=== PATIENT | male | born 1945 | race Caucasian/White ===

== ENCOUNTER 2018-10-16 13:06 | Inpatient (IN) ==
[2018-10-16 14:30] LABS: Basophils # (auto) 0.04 K/uL (0-0.2); Basophils % (auto) 0.4 %; Eosinophils # (auto) 0.32 K/uL (0-0.5); Eosinophils % (auto) 2.9 %; Hematocrit (blood only) 41.1 % (42-52); Hemoglobin 13.5 g/dL (14.0-18.0); Immature Granulocytes # (auto) 0.05 K/uL (0.00-0.02); Immature Granulocytes % (auto) 0.4 %; Lymphocytes # (auto) 1.51 K/uL (1.2-3.4); Lymphocytes % (auto) 13.5 %; Mean Corpuscular Hgb Conc 32.8 g/dL (32-36); Mean Corpuscular Volume 89.3 fL (80-100); Mean Platelet Volume 10.4 fL (7.4-10.4); Monocytes # (auto) 0.86 K/uL (0.11-0.59); Monocytes % (auto) 7.7 %; Neutrophils # (auto) 8.37 K/uL (1.4-6.5); Neutrophils % (auto) 75.1 %; Platelet Count 347 K/uL (130-400); RDW Coefficient of Variation 13.8 % (11.5-14.5); RDW Standard Deviation 44.9 fL (36.4-46.3); White Blood Count 11.15 K/uL (4.8-10.8)
[2018-10-16 14:39] LABS: INR 2.6 (0.9-1.1); Prothrombin Time 24.5 Seconds (9.0-12.0)
--- NOTE | 2018-10-16 14:40 | Emergency Department Note ---
History of Present Illness General Chief complaint: Ankle Pain Stated complaint: RIGHT ANKLE AND FOOT PAIN Time Seen by Provider: 10/16/18 13:50 History of Present Illness Maximum Pain Intensity: 9 This patient is a 72-year-old male who presents to the emergency department via private vehicle for evaluation of increased redness, swelling and redness to the right foot. The patient denies any injury, however he was diagnosed with a calcaneal fracture approximately 3 weeks ago. He saw an orthopedic doctor earlier this week. He was given a postop shoe and told not to bear weight on t he leg. The patient has a history of neuropathy and difficulty with balance. He is having a tough time getting around at home. He denies any fever or chills. No new injury. No chest pain or shortness of breath. He has not been taking anything [id number] for pain. The pain is worse with weightbearing. Home Medications Home Medications Medication Instructions Recorded Confirmed Type Lactobacillus acidophilus 100 mg PO DAILY 10/16/18 10/16/18 History [Acidophilus] amiodarone 100 mg PO HS 10/16/18 10/16/18 History arginine HCl (L-arginine) 1,000 mg PO DAILY 10/16/18 10/16/18 History cholecalciferol (vitamin D3) 1,000 unit PO DAILY 10/16/18 10/16/18 History [Vitamin D3] coenzyme Q10 100 mg PO DAILY 10/16/18 10/16/18 History cyanocobalamin (vitamin B-12) 1,000 mcg PO DAILY 10/16/18 10/16/18 History [Vitamin B-12] duloxetine 30 mg PO HS 10/16/18 10/16/18 History econazole 0 applic TOPICAL UD 10/16/18 10/16/18 History fexofenadine 180 mg PO DAILY PRN 10/16/18 10/16/18 History finasteride 5 mg PO DAILY 10/16/18 10/16/18 History fluticasone propionate [Flonase 2 spray INTRANASAL DAILY 10/16/18 10/16/18 History Allergy Relief] lorazepam 0.5 mg PO BID PRN 10/16/18 10/16/18 History losartan 25 mg PO HS 10/16/18 10/16/18 History metformin 850 mg PO BID 10/16/18 10/16/18 History metoprolol succinate 100 mg PO BID 10/16/18 10/16/18 History multivitamin 1 tab PO DAILY 10/16/18 10/16/18 History nystatin 1 applic TOPICAL BID 10/16/18 10/16/18 History nystatin 1 applic TOPICAL TID 10/16/18 10/16/18 History omega 0-yya-guz-fish oil [Fish Oil] 1 cap PO BID 10/16/18 10/16/18 History phenylalanine [L-Phenylalanine] 500 mg PO DAILY 10/16/18 10/16/18 History psyllium husk [Metamucil] 1 tbsp PO DAILY 10/16/18 10/16/18 History simvastatin 20 mg PO PM 10/16/18 10/16/18 History sodium fluoride-pot nitrate 1 applic DENTAL DAILY 10/16/18 10/16/18 History [PreviDent 5000 Sensitive] tamsulosin 0.4 mg PO DAILY 10/16/18 10/16/18 History tramadol 50 mg PO Q6H PRN 10/16/18 10/16/18 History triamterene-hydrochlorothiazid 1 cap PO DAILY 10/16/18 10/16/18 History warfarin 2.5 mg PO 5XWK 10/16/18 10/16/18 History warfarin 5 mg PO 2XWK 10/16/18 10/16/18 History zinc oxide [Desitin] 1 applic TOPICAL BID PRN 10/16/18 10/16/18 History Allergies Allergy/AdvReac Type Severity Reaction Status Date / Time Penicillins Allergy Severe edema of Unverified 10/16/18 17:11 airway cephalexin Allergy Mild Unknown Unverified 10/16/18 14:50 codeine Allergy Mild Unknown Unverified 10/16/18 14:50 furosemide [From Lasix] Allergy Mild Unknown Unverified 10/16/18 14:50 gabapentin Allergy Mild Unknown Unverified 10/16/18 14:50 Past Med/Surg History Medical History HTN (hypertension) HLD (hyperlipidemia) Pre-diabetes Morbid obesity Diabetic neuropathy ARVIND on CPAP PAF (paroxysmal atrial fibrillation) GERD (gastroesophageal reflux disease) Atrial fib/flutter, transient Surgical History History of tonsillectomy and adenoidectomy History of colonoscopy Family History Father CHF (congestive heart failure) Alzheimer disease Mother Stroke CHF (congestive heart failure) Social History Preferred Language: Georgian Communication Ability: Effective Activity Coordinator Required: No Beliefs That Will Affect Care: None marital status: Current Living Situation: Spouse Other Information That Helps Us Care for You: No Feels Safe at Home: Yes Safety Concerns: Feels Safe At This Time Smoking Status: Never smoker Do You Dip or Chew Tobacco: No Second Hand Exposure: No Tobacco Cessation Education Requested by Patient: No Hx Alcohol Use: No Hx Substance Use: No Review of Systems A total of 10 systems reviewed and were otherwise negative Physical Exam Vital Signs Vital Signs - 24 hr 10/16/18 13:16 10/16/18 16:27 Temperature 36.6 C Temperature Source Oral Sepsis Recent Fever Within 48 Hours No Sepsis New/Unexplained Change in Mental Status No Sepsis Action Taken by Nursing No Action Required Pulse Rate 68 Pulse Rate [Left] 51 L Respiratory Rate 20 20 Respiratory Effort / Characteristics Non-Labored Spontaneous Non-Labored Spontaneous Respiratory Depth Normal Blood Pressure 136/63 Blood Pressure [Right Arm] 147/56 H Blood Pressure Mean 87 Blood Pressure Mean [Right Arm] 86 Blood Pressure Position Sitting Blood Pressure Position [Right Arm] Lying Pulse Oximetry 94 97 Oxygen Delivery Method Room Air Room Air Constitutional WD/WN, vitals as above Morbidly obese Eyes EOM intact bilaterally ENMT external ear and nose normal, oropharynx normal Neck trachea midline Respiratory normal respiratory effort, lungs clear to auscultation Cardiovascular RRR, no murmur, no edema Gastrointestinal (Abdomen) Percussion/Palpation: abdomen soft Musculoskeletal Diffuse edema and erythema noted to the right ankle, particularly over the medial malleolus. Capillary refill is less than 2 seconds. DP pulses not palpable. No significant tenderness to palpation appreciated. Edema is extending proximally up the odonnell. Skin no rashes, warm and dry Intact Neurologic Alert and oriented x3. No focal motor deficits. Psychiatric Acting appropriately Course Patient was seen and examined Vital signs including blood pressure were reviewed medications list was verified with patient Labs were obtained, and a saline lock was established The patient declined pain medication Imaging was performed and reviewed The patient was reassessed and resting comfortably. We discussed his results and disposition. He was in agreement with the plan. The patient was ordered 1 dose of daptomycin and aztreonam The patient was in agreement with my plan The case was discussed with case management and subsequently the [facility]. They kindly agreed to evaluate the patient for likely inpatient management. Consultations Consultation #1: [facility] service Administered Medications Amiodarone HCl (Cordarone) 100 mg PO HS KARIN Stop: 11/15/18 20:59 Last Admin: 10/16/18 21:43 Dose: 100 mg Documented by: [id number] Duloxetine HCl (Cymbalta) 30 mg PO HS KARIN Stop: 11/15/18 20:59 Last Admin: 10/16/18 21:45 Dose: 30 mg Documented by: [id number] Fish Oil ([place]-3 (Purified Fish Oil)) 1 gm PO BID KARIN Stop: 11/15/18 20:59 Last Admin: 10/16/18 21:49 Dose: Not Given Documented by: [id number] Insulin Aspart (Novolog Flexpen) 0 units SC ACHS KARIN Stop: 11/15/18 20:59 Last Admin: 10/16/18 21:47 Dose: Not Given Documented by: [id number] Cosigned by: [id number] Losartan Potassium (Cozaar) 25 mg PO HS KARIN Stop: 11/15/18 20:59 Last Admin: 10/16/18 21:44 Dose: 25 mg Documented by: [id number] Metoprolol Succinate (Toprol Xl) 100 mg PO BID KARIN Stop: 11/15/18 20:59 Last Admin: 10/16/18 21:51 Dose: Not Given Documented by: [id number] Discontinued Medications Daptomycin 700 mg/ Syringe 14 mls @ 7 mls/min IV NOW ONE; Protocol Stop: 10/16/18 16:31 Last Admin: 10/16/18 17:15 Dose: 7 mls/min Documented by: [id number] Aztreonam 2,000 mg/ Dextrose 110 mls @ 100 mls/hr IV ONE ONE; Protocol Stop: 10/16/18 18:13 Last Infusion: 10/16/18 19:03 Dose: 0 mls/hr Documented by: [id number] Admin: 10/16/18 17:57 Dose: 100 mls/hr Documented by: [id number] Medical Decision Making Medical Records Attestation: I reviewed the patient's medical records. Home Medications Current Medication List: was personally reviewed by me Laboratory Data Attestation: I reviewed the patient's lab results. Result diagrams: 10/16/18 14:23 10/16/18 14:23 Lab Results 10/16/18 10/16/18 10/16/18 Range/Units 14:23 14:23 14:23 WBC 11.15 H (4.8-10.8) K/uL RBC 4.60 L (4.7-6.1) M/uL Hgb 13.5 L (14.0-18.0) g/dL Hct 41.1 L (42-52) % MCV 89.3 (80-100) fL MCH 29.3 (25-34) pg MCHC 32.8 (32-36) g/dL RDW Std Deviation 44.9 (36.4-46.3) fL RDW Coeff of Chapis 13.8 (11.5-14.5) % Plt Count 347 (130-400) K/uL MPV 10.4 (7.4-10.4) fL Immature Gran % (Auto) 0.4 % Neut % (Auto) 75.1 % Lymph % (Auto) 13.5 % [place] % (Auto) 7.7 % Eos % (Auto) 2.9 % Baso % (Auto) 0.4 % Immature Gran # (Auto) 0.05 H (0.00-0.02) K/uL Neut # (Auto) 8.37 H (1.4-6.5) K/uL Lymph # (Auto) 1.51 (1.2-3.4) K/uL [place] # (Auto) 0.86 H (0.11-0.59) K/uL Eos # (Auto) 0.32 (0-0.5) K/uL Baso # (Auto) 0.04 (0-0.2) K/uL ESR (0-14) mm/hr PT 24.5 H (9.0-12.0) Seconds INR 2.6 H (0.9-1.1) Sodium 135 L (136-145) mmol/L Potassium (3.5-5.1) mmol/L Chloride 100 (98-107) mmol/L Carbon Dioxide 29 (21-32) mmol/L Anion Gap 6.0 (3-11) BUN 23 H (7-18) mg/dl Creatinine 1.20 (0.6-1.4) mg/dl Est Cr Clr Drug Dosing 93.3 ml/min Est GFR ( Amer) 69.6 Est GFR (Non-Af Amer) 60.1 BUN/Creatinine Ratio 19.0 (10-20) Glucose 93 (70-99) mg/dl Calcium 9.8 (8.5-10.1) mg/dl Total Bilirubin 0.4 (0.2-1) mg/dl AST (15-37) U/L ALT 24 (12-78) U/L Alkaline Phosphatase 107 (45-117) U/L C-Reactive Protein (0-0.29) mg/dl Total Protein 7.1 (6.4-8.2) gm/dl Albumin 2.6 L (3.4-5.0) gm/dl Globulin 4.5 H (2.5-4.0) gm/dl Albumin/Globulin Ratio 0.6 L (0.9-2) 10/16/18 10/16/18 Range/Units 14:23 14:23 WBC (4.8-10.8) K/uL RBC (4.7-6.1) M/uL Hgb (14.0-18.0) g/dL Hct (42-52) % MCV (80-100) fL MCH (25-34) pg MCHC (32-36) g/dL RDW Std Deviation (36.4-46.3) fL RDW Coeff of Chapis (11.5-14.5) % Plt Count (130-400) K/uL MPV (7.4-10.4) fL Immature Gran % (Auto) % Neut % (Auto) % Lymph % (Auto) % [place] % (Auto) % Eos % (Auto) % Baso % (Auto) % Immature Gran # (Auto) (0.00-0.02) K/uL Neut # (Auto) (1.4-6.5) K/uL Lymph # (Auto) (1.2-3.4) K/uL [place] # (Auto) (0.11-0.59) K/uL Eos # (Auto) (0-0.5) K/uL Baso # (Auto) (0-0.2) K/uL ESR > 90 H (0-14) mm/hr PT (9.0-12.0) Seconds INR (0.9-1.1) Sodium (136-145) mmol/L Potassium (3.5-5.1) mmol/L Chloride (98-107) mmol/L Carbon Dioxide (21-32) mmol/L Anion Gap (3-11) BUN (7-18) mg/dl Creatinine (0.6-1.4) mg/dl Est Cr Clr Drug Dosing ml/min Est GFR ( Amer) Est GFR (Non-Af Amer) BUN/Creatinine Ratio (10-20) Glucose (70-99) mg/dl Calcium (8.5-10.1) mg/dl Total Bilirubin (0.2-1) mg/dl AST (15-37) U/L ALT (12-78) U/L Alkaline Phosphatase (45-117) U/L C-Reactive Protein 1.86 H (0-0.29) mg/dl Total Protein (6.4-8.2) gm/dl Albumin (3.4-5.0) gm/dl Globulin (2.5-4.0) gm/dl Albumin/Globulin Ratio (0.9-2) Imaging Data Attestation: I personally reviewed and interpreted this imaging study as follows: Radiologist's Impression: X-rays right foot Difficult study to interpret due to advanced degenerative change, lack of prior examinations, bony heterogeneity, and inability to properly position the patient. 2. The calcaneus appears foreshortened, with bony fragmentation identified anteriorly. There is collapse of the talocalcaneal articulation. Small avulsed fragments are seen along the medial aspect of the hindfoot. 3. Question erosive change with bony sclerosis and small ossific fragments along the dorsal aspect of the talus. Osteomyelitis would be impossible to exclude and clinical correlation will be required. Correlation with any prior outside imaging studies would be useful to assess for chronicity. 4. Advanced arthritic changes seen throughout the midfoot and hindfoot, likely representing a Charcot foot. 5. Diffuse soft tissue edema is present throughout the foot and ankle. Correlate clinically for evidence of cellulitis. Electronically signed by: Fracisco Shanks M.D. 10/16/2018 2:52 PM Ultrasound right lower extremity : There is no sonographic evidence of deep venous thrombosis identified in the r ight lower extremity. Electronically signed by: Fracisco Shanks M.D. 10/16/2018 4:28 PM Dictated: 10/16/18 1627 Transcribed: 10/16/[id number] Prescription Drug Monitoring [place] Drug Monitoring Program reviewed and no issues identified Blood Pressure Blood Pressure Findings: Elevated blood pressure Blood Pressure Disposition: further management by hospitalist KEV Narrative Differential diagnosis: Fracture, contusion, sprain, cellulitis, DVT, osteomyeli tis, sepsis, among others This patient is a 72-year-old male presents to the emergency department with increased redness and swelling to the right lower extremity. On exam, he did have a significant amount of edema, warmth and erythema. The patient is a known calcaneal fracture. His work-up here today reveals leukocytosis. X-rays could not rule out osteomyelitis. There was no DVT. I did not feel comfortable sending the patient home. The patient was ordered broad-spectrum antibiotics. He will be evaluated by the [facility] hospitalist for likely inpatient management. Impression & Plan Cellulitis Discharge Plan Visit Data *Final* Discharge Date/Time: 10/16/18 19:14 Chief Complaint: Ankle Pain Stated Complaint: RIGHT ANKLE AND FOOT PAIN ED Provider: Samuel Silva ED Midlevel Provider: Reny Jesus Discharge Problem: Cellulitis Patient Disposition: Admitted As Inpatient Condition: Serious Discharge Instructions Interventions: ED Discharge Assessment Last Done: 10/16/18 19:14
[2018-10-16 14:52] LABS: Albumin Level 2.6 gm/dl (3.4-5.0); Calcium 9.8 mg/dl (8.5-10.1); Creatinine Clr Calc Pharmacy 93.3 ml/min; Est GFR (African American) 69.6; Est GFR (Non-African American) 60.1
--- NOTE | 2018-10-16 14:53 | XRay Report ---
RIGHT FOOT 3 VIEWS CLINICAL HISTORY: Calcaneal fracture. Erythema of the right foot. FINDINGS: 3 views of the right foot are obtained. No prior studies are available for comparison at e time of dictation. The examination is degraded by inability to properly position the patient. The s keletal structures are heterogeneously osteopenic. Advanced arthritic change is seen throughout the m idfoot and hindfoot. The calcaneus appears foreshortened, with fragmentation anteriorly and collapse of the talocalcaneal articulation. There is near-complete bony fusion seen throughout the midfoot. Sm all fracture fragments are suggested along the medial aspect of the hindfoot on the AP view, possibly arising from the calcaneus question erosive change and sclerosis along the dorsal aspect of the talu s with small overlying bone fragments. No additional foci of erosive change are suggested. There are dorsal and plantar calcaneal enthesophytes. Soft tissue edema seen throughout the foot and around the ankle. There is likely an ankle joint effusion. Atherosclerotic calcification is seen in the regiona l arteries. Moderate to advanced arthritic changes noted at the first metatarsophalangeal joint. IMPRESSION: 1. Difficult study to interpret due to advanced degenerative change, lack of prior examinations, bony heterogeneity, and inability to properly position the patient. 2. The calcaneus appears foreshortened, with bony fragmentation identified anteriorly. There is colla pse of the talocalcaneal articulation. Small avulsed fragments are seen along the medial aspect of th e hindfoot. 3. Question erosive change with bony sclerosis and small ossific fragments along the dorsal aspect of the talus. Osteomyelitis would be impossible to exclude and clinical correlation will be required. C orrelation with any prior outside imaging studies would be useful to assess for chronicity. 4. Advanced arthritic changes seen throughout the midfoot and hindfoot, likely representing a Charcot foot. 5. Diffuse soft tissue edema is present throughout the foot and ankle. Correlate clinically for evide nce of cellulitis. Electronically signed by: Fracisco Shanks M.D. 10/16/2018 2:52 PM
[2018-10-16 14:55] LABS: Albumin Globulin Ratio 0.6 (0.9-2); Bilirubin,Total 0.4 mg/dl (0.2-1); Globulin 4.5 gm/dl (2.5-4.0); Total Protein 7.1 gm/dl (6.4-8.2)
[2018-10-16] MEDS ORDERED: DAPTOmycin 700 MG in SYRINGE 0 ML IV ONE (16:30)
--- NOTE | 2018-10-16 16:30 | Ultrasound Report ---
ULTRASOUND RIGHT LOWER EXTREMITY VENOUS CLINICAL HISTORY: Right lower extremity edema. COMPARISON STUDY: No priors. TECHNIQUE: Real-time, grayscale, and color Doppler sonography of the deep veins of the right lower ex tremity was performed from the inguinal crease to the calf. Compression and augmentation were utilize d. Examination is degraded by large body habitus. FINDINGS: There is no sonographic evidence of deep venous thrombosis identified in the right lower ex tremity. The common femoral vein was not visualized. The superficial femoral and popliteal veins are patent and normally compressible. Portions of the popliteal vein were suboptimally assessed. The grea ter saphenous vein and the profunda femoris veins were not visualized. The visualized calf veins are patent. IMPRESSION: There is no sonographic evidence of deep venous thrombosis identified in the right lower extremity. Electronically signed by: Fracisco Shanks M.D. 10/16/2018 4:28 PM
[2018-10-16] MEDS ORDERED: AZTREONAM 2,000 MG in DEXTROSE 5% 100 ML IV ONE (17:08)
--- NOTE | 2018-10-16 18:21 | History & Physical Report ---
Date of Service October 16, 2018 Assessment & Plan (1) Right calcaneal fracture: (2) Swelling of right foot: This is a 72-year-old male who has a significant past medical history of HTN, HLD, PAF anticoagulated on warfarin, pre-diabetes, neuropathy, ARVIND on CPAP, GERD who presents to [facility] ED secondary to worsening swelling of right lower extremity since July. In ED patient was noted to have elevated WBC 11.15. His hemoglobin hematocrit was 13.5 and 41.1, platelet count 347. ESR and CRP are elevated at greater than 90 and 1.86. INR therapeutic at 1.6. CMP relatively unremarkable. Venous Doppler of right lower extreme he was negative for DVT. Right foot x-ray revealed advanced arthritic changes seen throughout the midfoot and hindfoot likely significant for Charcot foot. Unable to rule out osteomyelitis. Calcaneus appears foreshortened and collapse of talocalcaneal articulation. Significant swelling and deformity to R foot and ankle Likely component of charcot arthopathy ? Pathologic calcaneal and/or talus fracture ? Celluitis vs overt osteomyelitis admit to med/surg telemetry consult orthopedics Continue broad-spectrum IV antibiotics until OM or infection is ruled out Please refer to Dr. Vitale's addendum for further details regarding assessment and plan. (3) PAF (paroxysmal atrial fibrillation): (4) HTN (hypertension): (5) HLD (hyperlipidemia): (6) Pre-diabetes: (7) Morbid obesity: (8) ARVIND on CPAP: (9) DVT prophylaxis: History of Present Illness Chief Complaint: R foot swelling since July Primary Care Provider: Kyler Choudhury MD This is a 72-year-old male who has a significant past medical history of HTN, HLD, PAF anticoagulated on warfarin, pre-diabetes, neuropathy, ARVIND on CPAP, GERD who presents to [facility] ED secondary to worsening swelling of right lower extremity since July. Patient notes since July he has been having increased swelling of right foot. He has seen his PCP as well as podiatry who had sent him for imaging. Finally on 10/01 he presented to [facility] ER due to continued swelling and pain. X-ray revealed acute calcaneal fracture, acute avulsion fracture of medial malleolus. CT scan of lower extremity revealed acute comminuted probably pathologic fracture of calcaneus with possible pathologic fracture of talus not excluded. Underlying osteolytic lesions not excluded. He was given a splint and recommended to follow-up with orthopedics. Unfortunately early as he could follow-up with orthopedics was on 10/12 in which he went to [facility] orthopedics Dr. Tyson. At that time he was placed non weight bearing shoe and to return in 6 weeks. He also elicits that he has been working with roof truss machine tender and orthotic specialist to create specialized shoe for his right foot. Given pain and swelling in lower extremity makes mobility very difficult. has been having difficult time managing patient at home due to limited mobility, pain and not weightbearing status. They opted to present to ED today because was at "wits end," and needed somebody to evaluate his foot. She also notes the swelling just continues to get progressively worse. The patient otherwise denies any fever, chills, sweats, lightheadedness, dizziness, chest pain, shortness of breath, palpitations, cough, hemoptysis, nausea, vomiting, diarrhea, abdominal pain, changes bowel or urinary habits. His appetite is been otherwise stable. Taking his medications as prescribed. He is very particular on timing of his medications. He is compliant with his CPAP. Allergies Allergy/AdvReac Type Severity Reaction Status Date / Time Penicillins Allergy Severe edema of Unverified 10/16/18 17:11 airway cephalexin Allergy Mild Unknown Unverified 10/16/18 14:50 codeine Allergy Mild Unknown Unverified 10/16/18 14:50 furosemide [From Lasix] Allergy Mild Unknown Unverified 10/16/18 14:50 gabapentin Allergy Mild Unknown Unverified 10/16/18 14:50 Home Medications Home Medications Medication Instructions Recorded Confirmed Type Lactobacillus acidophilus 100 mg PO DAILY 10/16/18 10/16/18 History [Acidophilus] amiodarone 100 mg PO HS 10/16/18 10/16/18 History arginine HCl (L-arginine) 1,000 mg PO DAILY 10/16/18 10/16/18 History cholecalciferol (vitamin D3) 1,000 unit PO DAILY 10/16/18 10/16/18 History [Vitamin D3] coenzyme Q10 100 mg PO DAILY 10/16/18 10/16/18 History cyanocobalamin (vitamin B-12) 1,000 mcg PO DAILY 10/16/18 10/16/18 History [Vitamin B-12] duloxetine 30 mg PO HS 10/16/18 10/16/18 History econazole 0 applic TOPICAL UD 10/16/18 10/16/18 History fexofenadine 180 mg PO DAILY PRN 10/16/18 10/16/18 History finasteride 5 mg PO DAILY 10/16/18 10/16/18 History fluticasone propionate [Flonase 2 spray INTRANASAL DAILY 10/16/18 10/16/18 History Allergy Relief] lorazepam 0.5 mg PO BID PRN 10/16/18 10/16/18 History losartan 25 mg PO HS 10/16/18 10/16/18 History metformin 850 mg PO BID 10/16/18 10/16/18 History metoprolol succinate 100 mg PO BID 10/16/18 10/16/18 History multivitamin 1 tab PO DAILY 10/16/18 10/16/18 History nystatin 1 applic TOPICAL BID 10/16/18 10/16/18 History nystatin 1 applic TOPICAL TID 10/16/18 10/16/18 History omega 2-jsc-xhg-fish oil [Fish Oil] 1 cap PO BID 10/16/18 10/16/18 History phenylalanine [L-Phenylalanine] 500 mg PO DAILY 10/16/18 10/16/18 History psyllium husk [Metamucil] 1 tbsp PO DAILY 10/16/18 10/16/18 History simvastatin 20 mg PO PM 10/16/18 10/16/18 History sodium fluoride-pot nitrate 1 applic DENTAL DAILY 10/16/18 10/16/18 History [PreviDent 5000 Sensitive] tamsulosin 0.4 mg PO DAILY 10/16/18 10/16/18 History tramadol 50 mg PO Q6H PRN 10/16/18 10/16/18 History triamterene-hydrochlorothiazid 1 cap PO DAILY 10/16/18 10/16/18 History warfarin 2.5 mg PO 5XWK 10/16/18 10/16/18 History warfarin 5 mg PO 2XWK 10/16/18 10/16/18 History zinc oxide [Desitin] 1 applic TOPICAL BID PRN 10/16/18 10/16/18 History Past Med/Surg History Medical History HTN (hypertension) HLD (hyperlipidemia) Pre-diabetes Morbid obesity Diabetic neuropathy ARVIND on CPAP PAF (paroxysmal atrial fibrillation) GERD (gastroesophageal reflux disease) Atrial fib/flutter, transient Surgical History History of tonsillectomy and adenoidectomy History of colonoscopy Family History Father CHF (congestive heart failure) Alzheimer disease Mother Stroke CHF (congestive heart failure) Social History Preferred Language: Zimbabwean Communication Ability: Effective marital status: Current Living Situation: Spouse Feels Safe at Home: Yes Smoking Status: Never smoker Hx Alcohol Use: No Hx Substance Use: No Review of Systems Review of Systems: As noted per HPI, 10 systems reviewed and negative unless noted above. Physical Exam Physical Exam: Gen: Morbidly obese M, sitting in recliner, NAD, flat affected, conversing easily Head: Normocephalic, Atraumatic Eyes: Sclera normal, no conjunctival injection, PERRLA, EOMI ENT: Gross hearing intact, normal pharynx, mucous membranes moist Neck: supple, no adenopathy, No JVD, no bruit, Resp: Clear to auscultation b/l, no wheeze, rales, rhonchi. Normal insp/exp effort, no accessory muscle use CV: Regular rate, regular rhythm, no murmur, rub, gallop, or ectopy Abd: distended abd due to obesity, +BS x 4, soft, nontender, nondistended Musculoskeletal: R foot and ankle significant edema/deformity, foot everted, able to dorsiflex/plantar flex but unable to flex/extend toes, unable to invert or katie RLE ankle, otherwise strength intact upper ext and LLE Extremities: Significant RLE ankle/pedal edema, No LLE edema Skin: warm, moist, no rash, negative turgor, cap refill < 2sec Neuro: Alert and oriented x 3, speech normal, good mood/affect, cran nerve 2-12 intact grossly : deferred Results & Data Vital Signs (Past 12 Hours) Vital Signs Temp Pulse Pulse Resp BP BP Pulse Ox 10/16/18 16:27 51 L 20 147/56 H 97 10/16/18 13:16 36.6 C 68 20 136/63 94 Code Status & VTE Plan Code Status Full Code VTE Prophylaxis Plan VTE Prophylaxis will be ordered: Yes Supervising Physician Co-Signing Physician Notes I have seen the patient with physician housekeeping assistant and agree with History and Physical as documented by physician housekeeping assistant and would like to comment the following problems Main physical exam findings of obese male with right lower extremity swelling with deformity of right foot with swelling that is warm to the touch on the medi al and bottom part of the foot and right foot very edematous Right lower extremity swelling Right calcaneal fracture: swelling may be secondary to Charcot foot versus cellulitis -empirically started by ED on aztreonam and daptomycin, would continue for cellulitis and rule out osteomyelitis -will try to obtain MRI with contrast of right lower foot to rule out osteomyelitis if possible -otherwise if MRI cannot be possible because of patients body size or discomfort then may need CT scan of right leg with contrast -orthopedic consult -patient does not want Lasix for leg swelling because it caused abdomen discomfort or weakness in the past -will continue home dose triamterene/HCTZ as diuretic for now Hypertension - will continue home dose triamterene/HCTZ as diuretic for now Morbid obesity -patients morbid obesity does not help with patients right foot swelling -will need to elevate foot at rest as possible Atrial Fibrillation Anticoagulated on coumadin -continue home dose amiodarone and metoprolol -INR is therapeutic for anticoagulation for atrial fibrillation but will hold home dose Coumadin for now in case of orthopedic interventions Obstructive sleep apnea -CPAP/BIPAAP qhs Pre-diabetes -hold home dose metformin for now -give insulin as needed DVT ppx: therapeutic INR
[2018-10-16] MEDS ORDERED: POLYETHYLENE (MIRALAX) 17 GM PACK PO PRN (19:57)
[2018-10-16] MEDS ORDERED: MAGNESIUM HYDROXIDE SUSP 30 ML UDC PO PRN (19:57)
[2018-10-16] MEDS ORDERED: GLUCOSE 40% GEL 15 GM TUBE PO PRN (19:57)
[2018-10-16] MEDS ORDERED: ZINC OXIDE TOP PRN (19:57)
[2018-10-16] MEDS ORDERED: ONDANSETRON INJ 2 MG/ML 2 ML VIAL IV PRN (19:57)
[2018-10-16] MEDS ORDERED: CARBOHYDRATES FOR HYPOGLYCEMIA PO PRN (19:57)
[2018-10-16] MEDS ORDERED: LORazepam 0.5 MG TAB PO PRN (19:57)
[2018-10-16] MEDS ORDERED: GLUCOSE 10 TABS/TUBE PO PRN (19:57)
[2018-10-16] MEDS ORDERED: ACETAMINOPHEN 325 MG TAB PO PRN (19:57)
[2018-10-16] MEDS ORDERED: TRAMADOL HCL 50 MG TABLET PO PRN (19:57)
[2018-10-16] MEDS ORDERED: GLUCAGON FOR INJ 1 MG VIAL SQ PRN (19:57)
[2018-10-16] MEDS ORDERED: ALUMINUM/MAGNESIUM SUSP 30 ML UDC PO PRN (19:57)
[2018-10-16] MEDS ORDERED: CONSULT PHARMACY STA (19:57)
[2018-10-16] MEDS ORDERED: DEXTROSE 50% 50 ML SYRINGE IV PRN (19:57)
[2018-10-16] MEDS ORDERED: AZTREONAM CONSULT ACTIVE PRN (20:35)
[2018-10-16] MEDS ORDERED: DAPTOMYCIN CONSULT ACTIVE PRN (20:36)
[2018-10-16] MEDS ORDERED: AMIODARONE 200 MG TAB PO SCH (21:00)
[2018-10-16] MEDS ORDERED: DULOXETINE HCL 30 MG CAP PO SCH (21:00)
[2018-10-16] MEDS ORDERED: LOSARTAN POTASSIUM 25 MG TAB PO SCH (21:00)
[2018-10-16] MEDS: AMIODARONE 200 MG TAB PO SCH (21:43)
[2018-10-16] MEDS: LOSARTAN POTASSIUM 25 MG TAB PO SCH (21:44)
[2018-10-16] MEDS: DULOXETINE HCL 30 MG CAP PO SCH (21:45)
[2018-10-16] MEDS: INSULIN ASPART 100 UNITS/ML 3 ML PEN SC SCH (21:47)
[2018-10-16] MEDS: OMEGA-3 (PURIFIED FISH OIL) 1 GM CAP PO SCH (21:49)
[2018-10-16] MEDS: METOPROLOL SUCC 50MG EXT REL TAB PO SCH (21:51)
[2018-10-16] MEDS: TAMSULOSIN HCL 0.4 MG CAP PO SCH (22:41)
[2018-10-16] MEDS ORDERED: PSYLLIUM 58.6% POWDER PACKET PO STA (22:58)
[2018-10-17] MEDS: AZTREONAM 2,000 MG in DEXTROSE 5% 100 ML IV SCH ×3 (01:49→18:43)
[2018-10-17] MEDS ORDERED: HYDROCORTISONE ACETATE 25 MG SUPP PR PRN (04:56)
[2018-10-17 07:52] LABS: Hematocrit (blood only) 39.5 % (42-52); Hemoglobin 13.1 g/dL (14.0-18.0); Mean Corpuscular Hgb Conc 33.2 g/dL (32-36); Mean Corpuscular Volume 89.2 fL (80-100); Mean Platelet Volume 10.1 fL (7.4-10.4); Platelet Count 342 K/uL (130-400); RDW Coefficient of Variation 13.8 % (11.5-14.5); RDW Standard Deviation 45.4 fL (36.4-46.3); Red Blood Count 4.43 M/uL (4.7-6.1); White Blood Count 9.58 K/uL (4.8-10.8)
[2018-10-17 08:03] LABS: INR 2.4 (0.9-1.1); Prothrombin Time 23.3 Seconds (9.0-12.0)
[2018-10-17 08:32] LABS: BUN Creatinine Ratio 20.2 (10-20); Calcium 9.4 mg/dl (8.5-10.1); Est GFR (African American) 75.7; Est GFR (Non-African American) 65.3; Potassium 3.9 mmol/L (3.5-5.1)
[2018-10-17] MEDS: OMEGA-3 (PURIFIED FISH OIL) 1 GM CAP PO SCH ×2 (08:33→21:23)
[2018-10-17] MEDS: TRIAMTERENE/HCTZ 37.5/25MG CAP PO SCH (08:33)
[2018-10-17] MEDS: METOPROLOL SUCC 50MG EXT REL TAB PO SCH (08:34)
[2018-10-17] MEDS ORDERED: NON-FORMULARY MEDICATION (Coenzyme Q10 100 MG) PO SCH (09:00)
[2018-10-17] MEDS ORDERED: DULOXETINE HCL 30 MG CAP PO SCH (09:00)
[2018-10-17] MEDS ORDERED: ARGININE HCL 1000 MG PO SCH (09:00)
[2018-10-17] MEDS ORDERED: [UNRECOGNIZED DRUG - OTHER] PO SCH (09:00)
[2018-10-17] MEDS ORDERED: CYANOCOBALAMIN 500 MCG TABLET (VITAMIN B-12) PO SCH (09:00)
[2018-10-17] MEDS ORDERED: TAMSULOSIN HCL 0.4 MG CAP PO SCH (09:00)
[2018-10-17] MEDS ORDERED: CHOLECALCIFEROL 1,000 UNITS TAB PO SCH (09:00)
[2018-10-17] MEDS ORDERED: MULTIVITAMIN TAB PO SCH (09:00)
[2018-10-17] MEDS ORDERED: FINASTERIDE 5 MG TAB PO SCH (09:00)
[2018-10-17] MEDS ORDERED: LACTOBACILLUS ACIDOPHILUS (FLORANEX) TAB PO SCH (09:00)
[2018-10-17 09:06] LABS: Estimated Average Glucose 134 mg/dl; Hemoglobin A1C 6.3 % (4.5-5.6)
[2018-10-17] MEDS: INSULIN ASPART 100 UNITS/ML 3 ML PEN SC SCH ×4 (09:57→22:28)
[2018-10-17] MEDS ORDERED: Nursing to Pharmacy Communication ONE (10:12)
--- NOTE | 2018-10-17 16:21 | Hospitalist Progress Note ---
Date of Service October 17, 2018 Assessment & Plan (1) Right calcaneal fracture: (2) Swelling of right foot: "This is a 72-year-old male who has a significant past medical history of HTN, HLD, PAF anticoagulated on warfarin, pre-diabetes, neuropathy, ARVIND on CPAP, GERD who presents to [facility] ED secondary to worsening swelling of right lower extremity since July. In ED patient was noted to have elevated WBC 11.15. His hemoglobin hematocrit was 13.5 and 41.1, platelet count 347. ESR and CRP are elevated at greater than 90 and 1.86. INR therapeutic at 1.6. CMP relatively unremarkable. Venous Doppler of right lower extreme he was negative for DVT. Right foot x-ray revealed advanced arthritic changes seen throughout the midfoot and hindfoot likely significant for Charcot foot. Unable to rule out osteomyelitis. Calcaneus appears foreshortened and collapse of talocalcaneal articulation." Right lower extremity swelling Right calcaneal fracture: swelling may be secondary to Charcot foot versus cellulitis -empirically started by ED on aztreonam and daptomycin, would continue for cellulitis and rule out osteomyelitis -Patient was not able to fit in MRI machine. Will try to get CT scan with contrast -Right Lower extremity ultrasound: no DVT -patient does not want Lasix for leg swelling because it caused abdomen discomfort or weakness in the past -will continue home dose triamterene/HCTZ as diuretic for now -orthopedic consult recommendations pending while awaiting CT scan imaging (3) PAF (paroxysmal atrial fibrillation): Atrial Fibrillation Anticoagulated on coumadin -continue home dose amiodarone and metoprolol twice a day -INR is therapeutic for anticoagulation for atrial fibrillation on admission but will hold home dose Coumadin for now in case of orthopedic interventions (4) HTN (hypertension): Hypertension - will continue home dose triamterene/HCTZ as diuretic for now (5) HLD (hyperlipidemia): simvastatin (6) Pre-diabetes: HbA1c 6.3 diabetic diet (7) Morbid obesity: Morbid obesity with BMI 53.8 due to excess calories -patients morbid obesity does not help with patients right foot swelling -will need to elevate foot at rest as possible (8) ARVIND on CPAP: -CPAP/BIPAP qhs (9) DVT prophylaxis: DVT ppx: therapeutic INR on admission, monitor off coumadin for now unless there is no orthopedic interventions Subjective Heart rate controlled. in atrial fibrillation. patient denies chest pain. no shortness of breath. on room air. no abdomen complaints. no vomiting. right lower extremity remains swollen . Physical Exam Constitutional: + obese Eyes: PERRL, conjunctivae normal, anicteric sclerae EOM intact bilaterally ENMT: external ear and nose normal, oropharynx normal Neck: trachea midline, no thyromegaly Respiratory: normal respiratory effort, lungs clear to auscultation Cardiovascular: Rate/Rhythm: regular rate and + irregularly irregular Gastrointestinal (Abdomen): normal bowel sounds, soft, nontender, no hepatosplenomegaly Musculoskeletal: Head/Neck/Chest: normocephalic and head atraumatic ight lower extremity swelling with deformity of right foot with swelling that is warm to the touch on the medial and bottom part of the foot and right foot Neurologic: PERRL, EOMI, accommodation nl, no face palsy, no dysarthria Psychiatric: A+Ox3, euthymic affect Results & Data Vital Signs (Past 12 Hours) Vital Signs Temp Pulse Resp BP BP Pulse Ox 10/17/18 15:54 36.6 C 87 18 112/66 95 10/17/18 11:38 36.7 C 63 18 131/67 94 10/17/18 07:48 36.9 C 76 20 138/75 97 10/17/18 04:24 36.9 C 80 20 117/62 94
[2018-10-17] MEDS: CYANOCOBALAMIN 500 MCG TABLET (VITAMIN B-12) PO SCH (16:45)
[2018-10-17] MEDS: FINASTERIDE 5 MG TAB PO SCH (16:46)
[2018-10-17] MEDS: LACTOBACILLUS ACIDOPHILUS (FLORANEX) TAB PO SCH (16:46)
[2018-10-17] MEDS: MULTIVITAMIN TAB PO SCH (16:46)
[2018-10-17] MEDS: CHOLECALCIFEROL 1,000 UNITS TAB PO SCH (16:46)
[2018-10-17] MEDS ORDERED: METOPROLOL SUCC 50MG EXT REL TAB PO ONE (17:00)
[2018-10-17] MEDS ORDERED: DAPTOmycin 700 MG in SYRINGE 0 ML IV SCH (18:00)
--- NOTE | 2018-10-17 19:25 | Orthopedic Consultation ---
Date of Consultation October 17, 2018 Assessment & Plan (1) Right calcaneal fracture: Multiple small fractures and subluxation/dislocation foot consistent with a Charcot type fracture and does not appear to be infected. Dr. Montero reviewed his CAT scan and x-rays. Recommendation at this time is casting to let the acute Charcot foot calm down. Eventual treatment would be arthrodesis likely triple arthrodesis and calcaneal nail. He is going to require fci or rehab. We will need to contact Dr. Montero with regard to type of cast he prefers and weightbearing status. For now recommend elevation nonweightbearing he can have SCDs on both lower extremities and he can resume his Coumadin for DVT prophylaxis. History of Present Illness Attending Physician: Evans Vitale MD 72-year-old male with chronic right foot problem. Patient had increased swelling and deformity making walking difficult. Is been in contact with multiple orthopedic offices trying to get treatment. Patient has an appoint with Dr. Montero on the and in [place] [facility] on the . He has no pain just deformity and swelling. Allergies Allergy/AdvReac Type Severity Reaction Status Date / Time Penicillins Allergy Severe edema of Unverified 10/16/18 17:11 airway cephalexin Allergy Mild Unknown Unverified 10/16/18 14:50 codeine Allergy Mild Unknown Unverified 10/16/18 14:50 furosemide [From Lasix] Allergy Mild Unknown Unverified 10/16/18 14:50 gabapentin Allergy Mild Unknown Unverified 10/16/18 14:50 Home Medications Home Medications Medication Instructions Recorded Confirmed Type Lactobacillus acidophilus 100 mg PO DAILY 10/16/18 10/16/18 History [Acidophilus] amiodarone 100 mg PO 10/16/18 10/16/18 History arginine HCl (L-arginine) 1,000 mg PO DAILY 10/16/18 10/16/18 History cholecalciferol (vitamin D3) 1,000 unit PO DAILY 10/16/18 10/16/18 History [Vitamin D3] coenzyme Q10 100 mg PO DAILY 10/16/18 10/16/18 History cyanocobalamin (vitamin B-12) 1,000 mcg PO DAILY 10/16/18 10/16/18 History [Vitamin B-12] duloxetine 30 mg PO 10/16/18 10/16/18 History econazole 0 applic TOPICAL UD 10/16/18 10/16/18 History fexofenadine 180 mg PO DAILY PRN 10/16/18 10/16/18 History finasteride 5 mg PO DAILY 10/16/18 10/16/18 History fluticasone propionate [Flonase 2 spray INTRANASAL DAILY 10/16/18 10/16/18 History Allergy Relief] lorazepam 0.5 mg PO BID PRN 10/16/18 10/16/18 History losartan 25 mg PO HS 10/16/18 10/16/18 History metformin 850 mg PO BID 10/16/18 10/16/18 History metoprolol succinate 100 mg PO BID 10/16/18 10/16/18 History multivitamin 1 tab PO DAILY 10/16/18 10/16/18 History nystatin 1 applic TOPICAL BID 10/16/18 10/16/18 History nystatin 1 applic TOPICAL TID 10/16/18 10/16/18 History omega 4-dmr-kjy-fish oil [Fish Oil] 1 cap PO BID 10/16/18 10/16/18 History phenylalanine [L-Phenylalanine] 500 mg PO DAILY 10/16/18 10/16/18 History psyllium husk [Metamucil] 1 tbsp PO DAILY 10/16/18 10/16/18 History simvastatin 20 mg PO PM 10/16/18 10/16/18 History sodium fluoride-pot nitrate 1 applic DENTAL DAILY 10/16/18 10/16/18 History [PreviDent 5000 Sensitive] tamsulosin 0.4 mg PO DAILY 10/16/18 10/16/18 History tramadol 50 mg PO Q6H PRN 10/16/18 10/16/18 History triamterene-hydrochlorothiazid 1 cap PO DAILY 10/16/18 10/16/18 History warfarin 2.5 mg PO 5XWK 10/16/18 10/16/18 History warfarin 5 mg PO 2XWK 10/16/18 10/16/18 History zinc oxide [Desitin] 1 applic TOPICAL BID PRN 10/16/18 10/16/18 History Patient History Medical History HTN (hypertension) HLD (hyperlipidemia) Pre-diabetes Morbid obesity Diabetic neuropathy ARVIND on CPAP PAF (paroxysmal atrial fibrillation) GERD (gastroesophageal reflux disease) Atrial fib/flutter, transient Surgical History History of tonsillectomy and adenoidectomy History of colonoscopy Family History Father CHF (congestive heart failure) Alzheimer disease Mother Stroke CHF (congestive heart failure) Social History Preferred Language: Moldovan Communication Ability: Effective Shearing Shed Hand Required: No Beliefs That Will Affect Care: None marital status: Current Living Situation: Spouse Other Information That Helps Us Care for You: No Feels Safe at Home: Yes Safety Concerns: Feels Safe At This Time Smoking Status: Never smoker Do You Dip or Chew Tobacco: No Second Hand Exposure: No Tobacco Cessation Education Requested by Patient: No Hx Alcohol Use: No Hx Substance Use: No Review of Systems Review of Systems: History of A. fib regularly on Coumadin being held in case potential surgery. No history of skin breakdown or drainage. Physical Exam Physical Exam: Morbidly obese male lying in bed supine. His right ankle is abducted with a valgus heel significant swelling of the foot ankle and calf. Swelling consistent with edema. There is no erythema no increased warmth. Patient has diminished sensation due to neuropathy. Patient has no motor deficit. The foot passively correctable near to neutral but not completely to neutral. Heels not correctable passively. His opposite foot looks normal but still has neuropathy. Results & Data Vital Signs (Past 12 Hours) Vital Signs Temp Pulse Resp BP BP Pulse Ox 10/17/18 15:54 36.6 C 87 18 112/66 95 10/17/18 11:38 36.7 C 63 18 131/67 94 10/17/18 07:48 36.9 C 76 20 138/75 97
[2018-10-17] MEDS ORDERED: IOVERSOL 100ml IV PRN (20:07)
--- NOTE | 2018-10-17 20:54 | CT Scan Report ---
CT OF THE RIGHT FOOT WITH CONTRAST CLINICAL HISTORY: Right foot erythema. Evaluate for osteomyelitis. COMPARISON STUDY: Right foot radiographs October 16, 2018. TECHNIQUE: Axial images of the right foot were obtained following intravenous injection of Optiray 32 0 IV. Sagittal and coronal reconstructed reviewed. Automated exposure control was utilized for the st udy. A dose lowering technique was utilized adhering to the principles of ALARA. FINDINGS: The tarsometatarsal joints are aligned. There is no soft tissue gas. There is talonavicular dislocation. Calcaneocuboid articulation is also disrupted. There is an age indeterminate fracture o f the anterior process of the calcaneus which extends to the calcaneocuboid articulation. The midfoot is disorganized. Multiple erosions within the calcaneus and the talus are noted. Rim-enhancing fluid collections of the left ankle and midfoot are noted. The largest component measures 4.8 x 0.9 cm. Th ere is increased fluid and enhancement within the flexor tendon sheaths. Extensive right ankle and fo ot subcutaneous edema is noted. There is no radiopaque foreign body. Extensive vascular calcification is noted. There is no fracture within the right forefoot. IMPRESSION: 1. Talonavicular dislocation with disruption of the calcaneocuboid articulation with fracture of the anterior process of the calcaneus with intra-articular extension. 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 2. Erosions of the calcaneus and talus with multiple rim-enhancing fluid collections of the right ank le and hindfoot with increased fluid and enhancement within flexor tendon sheaths. The findings are n onspecific and can be seen in the setting of a neuropathic arthropathy however a superimposed infecti ous process with multifocal osteomyelitis, abscesses and tenosynovitis could have this appearance and is the diagnosis of exclusion. Therefore, correlation with clinical evidence for an infectious proce ss is recommended. 3. Extensive edema of the right ankle and hindfoot which favors cellulitis. No soft tissue gas. Electronically signed by: Iker Swenson M.D. 10/17/2018 8:52 PM
[2018-10-17] MEDS: AMIODARONE 200 MG TAB PO SCH (21:21)
[2018-10-17] MEDS: DULOXETINE HCL 30 MG CAP PO SCH (21:21)
[2018-10-17] MEDS: LOSARTAN POTASSIUM 25 MG TAB PO SCH (21:21)
[2018-10-17] MEDS: TAMSULOSIN HCL 0.4 MG CAP PO SCH (21:23)
[2018-10-18] MEDS: AZTREONAM 2,000 MG in DEXTROSE 5% 100 ML IV SCH ×2 (02:07→10:47)
[2018-10-18] MEDS: PSYLLIUM 58.6% POWDER PACKET PO PRN ×2 (02:17→23:37)
[2018-10-18 07:40] LABS: Basophils # (auto) 0.02 K/uL (0-0.2); Basophils % (auto) 0.2 %; Eosinophils # (auto) 0.26 K/uL (0-0.5); Eosinophils % (auto) 3.2 %; Hematocrit (blood only) 41.4 % (42-52); Hemoglobin 13.8 g/dL (14.0-18.0); Immature Granulocytes # (auto) 0.04 K/uL (0.00-0.02); Immature Granulocytes % (auto) 0.5 %; Lymphocytes % (auto) 21.2 %; Mean Corpuscular Hgb Conc 33.3 g/dL (32-36); Mean Corpuscular Volume 89.2 fL (80-100); Mean Platelet Volume 10.1 fL (7.4-10.4); Monocytes # (auto) 0.92 K/uL (0.11-0.59); Monocytes % (auto) 11.5 %; Neutrophils # (auto) 5.09 K/uL (1.4-6.5); Neutrophils % (auto) 63.4 %; Platelet Count 343 K/uL (130-400); RDW Standard Deviation 45.9 fL (36.4-46.3); Red Blood Count 4.64 M/uL (4.7-6.1); White Blood Count 8.03 K/uL (4.8-10.8)
[2018-10-18 07:49] LABS: INR 1.9 (0.9-1.1); Prothrombin Time 18.6 Seconds (9.0-12.0)
[2018-10-18 08:11] LABS: Albumin Globulin Ratio 0.7 (0.9-2); Albumin Level 2.7 gm/dl (3.4-5.0); BUN Creatinine Ratio 21.4 (10-20); Bilirubin,Total 0.5 mg/dl (0.2-1); Calcium 9.6 mg/dl (8.5-10.1); Creatinine Clr Calc Pharmacy 104.8 ml/min; Est GFR (African American) 77.3; Est GFR (Non-African American) 66.7; Globulin 4.1 gm/dl (2.5-4.0); Potassium 3.3 mmol/L (3.5-5.1); Total Protein 6.8 gm/dl (6.4-8.2)
[2018-10-18] MEDS: METOPROLOL SUCC 50MG EXT REL TAB PO SCH ×2 (08:22→15:30)
[2018-10-18] MEDS: TRIAMTERENE/HCTZ 37.5/25MG CAP PO SCH (08:22)
[2018-10-18] MEDS: OMEGA-3 (PURIFIED FISH OIL) 1 GM CAP PO SCH ×2 (08:23→21:24)
[2018-10-18] MEDS: INSULIN ASPART 100 UNITS/ML 3 ML PEN SC SCH ×4 (08:25→22:01)
[2018-10-18] MEDS ORDERED: POTASSIUM CHLORIDE 20 MEQ TABCR PO ONE (10:00)
--- NOTE | 2018-10-18 11:07 | Infectious Disease Consult ---
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 Given lack of systemic complaints and prolonged nature of process, feel that more likely were dealing with progressive Charcot changes with acute fractures rather than infectious process. Would favor holding antibiotics. Will await input f juanjose Montero. Will discuss with all involved. Will follow. History of Present Illness Reason for Consultation: Antibiotic recommendations Attending Physician: Evans Vitale MD History of Present Illness 72-year-old male with morbid obesity, diabetes mellitus, peripheral neuropathy, atrial fibrillation, obstructive sleep apnea, was admitted October 16 with pain and redness of his right foot. Patient states that he has been suffering from pain in his foot since July of this year, has been followed with podiatry, given an open shoe to wear, but recently developed market worsening with increasing redness and swelling of the foot and ankle. He was found to have evidence of severe Charcot changes on CT scan, and question of possible osteomyelitis was raised as well. Patient has been treated with IV daptomycin and aztreonam without much improvement. Has been seen by orthopedic surgery who feels that likely this is from Charcot changes and not active infection. Patient denies any associated fever or chills or other systemic complaints. Allergies Allergy/AdvReac Type Severity Reaction Status Date / Time Penicillins Allergy Severe edema of Unverified 10/16/18 17:11 airway cephalexin Allergy Mild Unknown Unverified 10/16/18 14:50 codeine Allergy Mild Unknown Unverified 10/16/18 14:50 furosemide [From Lasix] Allergy Mild Unknown Unverified 10/16/18 14:50 gabapentin Allergy Mild Unknown Unverified 10/16/18 14:50 Home Medications Home Medications Medication Instructions Recorded Confirmed Type Lactobacillus acidophilus 100 mg PO DAILY 10/16/18 10/16/18 History [Acidophilus] amiodarone 100 mg PO HS 10/16/18 10/16/18 History arginine HCl (L-arginine) 1,000 mg PO DAILY 10/16/18 10/16/18 History cholecalciferol (vitamin D3) 1,000 unit PO DAILY 10/16/18 10/16/18 History [Vitamin D3] coenzyme Q10 100 mg PO DAILY 10/16/18 10/16/18 History cyanocobalamin (vitamin B-12) 1,000 mcg PO DAILY 10/16/18 10/16/18 History [Vitamin B-12] duloxetine 30 mg PO HS 10/16/18 10/16/18 History econazole 0 applic TOPICAL UD 10/16/18 10/16/18 History fexofenadine 180 mg PO DAILY PRN 10/16/18 10/16/18 History finasteride 5 mg PO DAILY 10/16/18 10/16/18 History fluticasone propionate [Flonase 2 spray INTRANASAL DAILY 10/16/18 10/16/18 History Allergy Relief] lorazepam 0.5 mg PO BID PRN 10/16/18 10/16/18 History losartan 25 mg PO HS 10/16/18 10/16/18 History metformin 850 mg PO BID 10/16/18 10/16/18 History metoprolol succinate 100 mg PO BID 10/16/18 10/16/18 History multivitamin 1 tab PO DAILY 10/16/18 10/16/18 History nystatin 1 applic TOPICAL BID 10/16/18 10/16/18 History nystatin 1 applic TOPICAL TID 10/16/18 10/16/18 History omega [id number] oil [Fish Oil] 1 cap PO BID 10/16/18 10/16/18 History phenylalanine [L-Phenylalanine] 500 mg PO DAILY 10/16/18 10/16/18 History psyllium husk [Metamucil] 1 tbsp PO DAILY 10/16/18 10/16/18 History simvastatin 20 mg PO PM 10/16/18 10/16/18 History sodium fluoride-pot nitrate 1 applic DENTAL DAILY 10/16/18 10/16/18 History [PreviDent 5000 Sensitive] tamsulosin 0.4 mg PO DAILY 10/16/18 10/16/18 History tramadol 50 mg PO Q6H PRN 10/16/18 10/16/18 History triamterene-hydrochlorothiazid 1 cap PO DAILY 10/16/18 10/16/18 History warfarin 2.5 mg PO 5XWK 10/16/18 10/16/18 History warfarin 5 mg PO 2XWK 10/16/18 10/16/18 History zinc oxide [Desitin] 1 applic TOPICAL BID PRN 10/16/18 10/16/18 History Patient History Medical History HTN (hypertension) HLD (hyperlipidemia) Pre-diabetes Morbid obesity Diabetic neuropathy ARVIND on CPAP PAF (paroxysmal atrial fibrillation) GERD (gastroesophageal reflux disease) Atrial fib/flutter, transient Surgical History History of tonsillectomy and adenoidectomy History of colonoscopy Family History Father CHF (congestive heart failure) Alzheimer disease Mother Stroke CHF (congestive heart failure) Social History Preferred Language: Martiniquais Communication Ability: Effective 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 Color Paste Mixing Required: No Beliefs That Will Affect Care: None marital status: Current Living Situation: Spouse Other Information That Helps Us Care for You: No Feels Safe at Home: Yes Safety Concerns: Feels Safe At This Time Smoking Status: Never smoker Do You Dip or Chew Tobacco: No Second Hand Exposure: No Tobacco Cessation Education Requested by Patient: No Hx Alcohol Use: No Hx Substance Use: No Review of Systems Review of Systems: All systems reviewed & are unremarkable except as noted in HPI & below Physical Exam Constitutional: WD/WN, vitals as above + obese and comfortable; no acute distress Eyes: PERRL, conjunctivae normal, anicteric sclerae ENMT: external ear and nose normal, oropharynx normal Neck: trachea midline, no thyromegaly neck nontender Respiratory: normal respiratory effort, lungs clear to auscultation normal percussion; does not use accessory muscles Cardiovascular: Rate/Rhythm: regular rate and regular rhythm Heart Sounds: normal S1 and normal S2; no gallop, no murmur and no cardiac rub Vessels: normal peripheral pulses; no JVD Gastrointestinal (Abdomen): normal bowel sounds, soft, nontender, no hepatosplenomegaly Musculoskeletal: no cyanosis or clubbing, extremities motor strength 5/5 Spine: thoracic spine normal to inspection and lumbar spine normal to inspection; no cervical spinal tenderness Skin: no rashes, warm and dry normal turgor and + erythema (Erythema with swelling distal half of the right foot) Neurologic: moves all extremities; no focal motor deficits Diminished sensation of both feet Psychiatric: A+Ox3, euthymic affect Orientation: cooperative Lymphatic: no cervical or axillary lymphadenopathy no inguinal l ymphadenopathy Results & Data Vital Signs (Past 12 Hours) Vital Signs Temp Pulse Pulse Resp BP BP Pulse Ox 10/18/18 07:20 36.5 C 62 20 157/83 H 94 10/18/18 04:12 36.8 C 64 18 142/72 H 94 10/17/18 23:54 36.7 C 83 20 129/86 95 10/17/18 23:37 70 95 Laboratory Results Short CBC 10/18/18 Range/Units 07:17 WBC 8.03 (4.8-10.8) K/uL Hgb 13.8 L (14.0-18.0) g/dL Hct 41.4 L (42-52) % Plt Count 343 (130-400) K/uL BMP 10/18/18 07:17 Sodium 134 L Potassium 3.3 L D Chloride 98 Carbon Dioxide 29 BUN 24 H Creatinine 1.10 Glucose 117 H Calcium 9.6 Liver Function 10/18/18 Range/Units 07:17 Total Bilirubin 0.5 (0.2-1) mg/dl AST 17 (15-37) U/L ALT 21 (12-78) U/L Alkaline Phosphatase 108 (45-117) U/L Albumin 2.7 L (3.4-5.0) gm/dl Diagnostic Findings Microbiology 10/16/18 17:02 Blood Aerobic Blood Culture - Preliminary No growth in Aerobic bottle after 24 hours. 10/16/18 17:02 Blood Anaerobic Blood Culture - Final 10/16/18 16:43 Blood Aerobic Blood Culture - Preliminary No growth in Aerobic bottle after 24 hours. 10/16/18 16:43 Blood Anaerobic Blood Culture - Preliminary No growth in Anaerobic bottle after [address] OF THE RIGHT FOOT WITH CONTRAST CLINICAL HISTORY: Right foot erythema. Evaluate for osteomyelitis. COMPARISON STUDY: Right foot radiographs October 16, 2018. TECHNIQUE: Axial images of the right foot were obtained following intravenous injection of Optiray 320 IV. Sagittal and coronal reconstructed reviewed. Automated exposure control was utilized for the study. A dose lowering technique was utilized adhering to the principles of ALARA. FINDINGS: The tarsometatarsal joints are aligned. There is no soft tissue gas. There is talonavicular dislocation. Calcaneocuboid articulation is also disrupted. There is an age indeterminate fracture of the anterior process of the calcaneus which extends to the calcaneocuboid articulation. The midfoot is disorganized. Multiple erosions within the calcaneus and the talus are noted. Rim-enhancing fluid collections of the left ankle and midfoot are noted. The largest component measures 4.8 x 0.9 cm. There is increased fluid and enhancement within the flexor tendon sheaths. Extensive right ankle and foot subcutaneous edema is noted. There is no radiopaque foreign body. Extensive vascular calcification is noted. There is no fracture within the right forefoot. IMPRESSION: 1. Talonavicular dislocation with disruption of the calcaneocuboid articulation with fracture of the anterior process of the calcaneus with intra-articular extension. 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 2. Erosions of the calcaneus and talus with multiple rim-enhancing fluid colle ctions of the right ankle and hindfoot with increased fluid and enhancement within flexor tendon sheaths. The findings are nonspecific and can be seen in the setting of a neuropathic arthropathy however a superimposed infectious process with multifocal osteomyelitis, abscesses and tenosynovitis could have this appearance and is the diagnosis of exclusion. Therefore, correlation with clinical evidence for an infectious process is recommended. 3. Extensive edema of the right ankle and hindfoot which favors cellulitis. No soft tissue gas. Electronically signed by: Iker Swenson M.D. 10/17/2018 8:52 PM Dictated: 10/17/182034 Transcribed: 10/17/182034
[2018-10-18] MEDS: CHOLECALCIFEROL 1,000 UNITS TAB PO SCH (15:31)
[2018-10-18] MEDS: CYANOCOBALAMIN 500 MCG TABLET (VITAMIN B-12) PO SCH (15:31)
[2018-10-18] MEDS: MULTIVITAMIN TAB PO SCH (15:32)
[2018-10-18] MEDS: LACTOBACILLUS ACIDOPHILUS (FLORANEX) TAB PO SCH (15:32)
[2018-10-18] MEDS: FINASTERIDE 5 MG TAB PO SCH (15:33)
--- NOTE | 2018-10-18 15:57 | Hospitalist Progress Note ---
Date of Service October 18, 2018 Assessment & Plan (1) Right calcaneal fracture: (2) Swelling of right foot: "This is a 72-year-old male who has a significant past medical history of HTN, HLD, PAF anticoagulated on warfarin, pre-diabetes, neuropathy, ARVIND on CPAP, GERD who presents to [facility] ED secondary to worsening swelling of right lower extremity since July. In ED patient was noted to have elevated WBC 11.15. His hemoglobin hematocrit was 13.5 and 41.1, platelet count 347. ESR and CRP are elevated at greater than 90 and 1.86. INR therapeutic at 1.6. CMP relatively unremarkable. Venous Doppler of right lower extreme he was negative for DVT. Right foot x-ray revealed advanced arthritic changes seen throughout the midfoot and hindfoot likely significant for Charcot foot. Unable to rule out osteomyelitis. Calcaneus appears foreshortened and collapse of talocalcaneal articulation." Right lower extremity swelling Right calcaneal fracture: swelling secondary to Charcot foot versus initial suspected cellulitis -empirically started by ED on aztreonam and daptomycin, would continue for cellulitis and rule out osteomyelitis -Patient was not able to fit in MRI machine. -Right Lower extremity ultrasound: no DVT -patient does not want Lasix for leg swelling because it caused abdomen discomfort or weakness in the past -will continue home dose triamterene/HCTZ as diuretic for now 10/17/18 CT right foot with contrast "1. Talonavicular dislocation with disruption of the calcaneocuboid articulation with fracture of the anterior process of the calcaneus with intra-articular extension. This appearance favors old traumatic injury with neuropathic a rthropathy involving Chopart's joint. 2. Erosions of the calcaneus and talus with multiple rim-enhancing fluid collections of the right ankle and hindfoot with increased fluid and enhancement within flexor tendon sheaths. The findings are nonspecific and can be seen in the setting of a neuropathic arthropathy however a superimposed infectious process with multifocal osteomyelitis, abscesses and tenosynovitis could have this appearance and is the diagnosis of exclusion. Therefore, correlation with clinical evidence for an infectious process is recommended. 3. Extensive edema of the right ankle and hindfoot which favors cellulitis. No soft tissue gas." -10/18/18 discussed with patient of Charcot foot diagnosis and that no surgery planned in near future by orthopedics at this time. waiting for cast. infectious process deemed unlikley by orthopedics and infections disease consult. IV antibiotics to be stopped. patient to get coumadin resumed. patient continues to defer Lasix for the right foot/leg swelling (3) PAF (paroxysmal atrial fibrillation): Atrial Fibrillation Anticoagulated on coumadin - patient coumadin schedule at home is 5 mg every Wednesday and Wednesday and 2.5 mg daily on other days of the week -continue home dose amiodarone and metoprolol twice a day -coumadin had been held since admission day and resumed on 10/18/18 as it became more clear that patient will not have orthopedic surgery, resumed as 2.5 mg coumadin on 10/18/18, (4) HTN (hypertension): Hypertension - continue home dose triamterene/HCTZ as diuretic (5) HLD (hyperlipidemia): simvastatin (6) Pre-diabetes: HbA1c 6.3 diabetic diet (7) Morbid obesity: Morbid obesity with BMI 53.8 due to excess calories -patients morbid obesity does not help with patients right foot swelling -encouraged to keep elevate right foot at rest as possible (8) ARVIND on CPAP: -CPAP/BIPAP qhs (9) DVT prophylaxis: DVT ppx: coumadin Subjective no chest pain. no shortness of breath. no fever. no palpitations. heart rate controlled. discussed with patient of Charcot foot diagnosis and that no surgery planned in near future by orthopedics at this time. waiting for cast. infectious process deemed unlikley by orthopedics and infections disease consult. IV antibiotics to be stopped. patient to get coumadin resumed. patient continues to defer Lasix for the right foot/leg swelling Physical Exam Constitutional: + obese Eyes: PERRL, conjunctivae normal, anicteric sclerae EOM intact bilaterally ENMT: external ear and nose normal, oropharynx normal Neck: trachea midline, no thyromegaly Respiratory: normal respiratory effort, lungs clear to auscultation Cardiovascular: Rate/Rhythm: regular rate and + irregularly irregular Gastrointestinal (Abdomen): normal bowel sounds, soft, nontender, no hepatosplenomegaly Musculoskeletal: Head/Neck/Chest: normocephalic and head atraumatic right lower extremity swelling with deformity of right foot Neurologic: PERRL, EOMI, accommodation nl, no face palsy, no dysarthria Psychiatric: A+Ox3, euthymic affect Results & Data Vital Signs (Past 12 Hours) Vital Signs Temp Pulse Resp BP BP Pulse Ox 10/18/18 15:31 37.0 C 76 18 127/72 94 10/18/18 12:14 36.5 C 88 20 134/89 94 10/18/18 07:20 36.5 C 62 20 157/83 H 94 10/18/18 04:12 36.8 C 64 18 142/72 H 94
[2018-10-18] MEDS ORDERED: WARFARIN SOD 2.5 MG TAB PO SCH (16:30)
[2018-10-18] MEDS: LOSARTAN POTASSIUM 25 MG TAB PO SCH (21:20)
[2018-10-18] MEDS: DULOXETINE HCL 30 MG CAP PO SCH (21:20)
[2018-10-18] MEDS: AMIODARONE 200 MG TAB PO SCH (21:21)
[2018-10-18] MEDS: TAMSULOSIN HCL 0.4 MG CAP PO SCH (21:22)
[2018-10-19 07:57] LABS: Basophils # (auto) 0.04 K/uL (0-0.2); Basophils % (auto) 0.5 %; Eosinophils # (auto) 0.32 K/uL (0-0.5); Eosinophils % (auto) 4.2 %; Hematocrit (blood only) 40.7 % (42-52); Hemoglobin 13.5 g/dL (14.0-18.0); Immature Granulocytes # (auto) 0.05 K/uL (0.00-0.02); Immature Granulocytes % (auto) 0.7 %; Lymphocytes # (auto) 1.31 K/uL (1.2-3.4); Lymphocytes % (auto) 17.2 %; Mean Corpuscular Hgb Conc 33.2 g/dL (32-36); Mean Corpuscular Volume 87.5 fL (80-100); Mean Platelet Volume 10.2 fL (7.4-10.4); Monocytes # (auto) 0.84 K/uL (0.11-0.59); Neutrophils # (auto) 5.06 K/uL (1.4-6.5); Neutrophils % (auto) 66.4 %; Platelet Count 319 K/uL (130-400); RDW Standard Deviation 44.8 fL (36.4-46.3); Red Blood Count 4.65 M/uL (4.7-6.1); White Blood Count 7.62 K/uL (4.8-10.8)
[2018-10-19] MEDS: METOPROLOL SUCC 50MG EXT REL TAB PO SCH ×2 (08:02→16:09)
[2018-10-19] MEDS: OMEGA-3 (PURIFIED FISH OIL) 1 GM CAP PO SCH ×2 (08:02→21:02)
[2018-10-19 08:07] LABS: INR 1.6 (0.9-1.1); Prothrombin Time 15.8 Seconds (9.0-12.0)
[2018-10-19] MEDS: INSULIN ASPART 100 UNITS/ML 3 ML PEN SC SCH ×4 (08:08→21:04)
[2018-10-19 08:26] LABS: Albumin Level 2.6 gm/dl (3.4-5.0); BUN Creatinine Ratio 23.5 (10-20); Calcium 9.7 mg/dl (8.5-10.1); Creatinine Clr Calc Pharmacy 113.9 ml/min; Est GFR (African American) 87.8; Est GFR (Non-African American) 75.8; Potassium 3.7 mmol/L (3.5-5.1)
[2018-10-19 08:29] LABS: Albumin Globulin Ratio 0.6 (0.9-2); Bilirubin,Total 0.4 mg/dl (0.2-1); Globulin 4.2 gm/dl (2.5-4.0); Total Protein 6.8 gm/dl (6.4-8.2)
[2018-10-19] MEDS: TRIAMTERENE/HCTZ 37.5/25MG CAP PO SCH (09:47)
[2018-10-19] MEDS: WARFARIN SOD 2.5 MG TAB PO SCH (15:31)
[2018-10-19] MEDS: LACTOBACILLUS ACIDOPHILUS (FLORANEX) TAB PO SCH (16:09)
[2018-10-19] MEDS: MULTIVITAMIN TAB PO SCH (16:09)
[2018-10-19] MEDS: FINASTERIDE 5 MG TAB PO SCH (16:10)
[2018-10-19] MEDS: CYANOCOBALAMIN 500 MCG TABLET (VITAMIN B-12) PO SCH (16:10)
[2018-10-19] MEDS: CHOLECALCIFEROL 1,000 UNITS TAB PO SCH (16:10)
--- NOTE | 2018-10-19 17:33 | Hospitalist Progress Note ---
Date of Service October 19, 2018 Assessment & Plan (1) Charcot's joint of right foot: Pain controlled with Tylenol. Ortho is planning to cast and have him non- weightbearing for a nonspecified amount of time until the inflammation calms down. He may need a SNF during this time depending on home resources- still works. PT/OT ordered. emt intermediate plan will be arthrodesis with calcaneal nail in setting of fracture present in calcaneus. (2) PAF (paroxysmal atrial fibrillation): Cont amio 100mg PO HS, Toprol XL 100mg PO BID and coumadin was restarted on 10/18. Trend daily INR until therapeutic and stable. (3) HTN (hypertension): At goal, continue home dose triamterene/HCTZ, losartan, and Toprol XL 100 BID (4) HLD (hyperlipidemia): simvastatin (5) Pre-diabetes: Pt is managed as outpatient with metformin and lifestyle efforts including dietary restrictions. He has been on carb coverage with insulin and getting 5-8 units with meals with all BSG running in the low 100s. I am concerned about the risk for inducing hypoglycemia here. Will stop carb coverage, cont correction factor if needed per scale and add Lantus 10 Units at night with titration based on facsting blood glucose while he is in the hospital. When he is discharged, he will be fine to retunr to the metformin. (6) Morbid obesity: (7) ARVIND on CPAP: CPAP qHS (8) DVT prophylaxis: DVT ppx: coumadin Lovenox while INR subtherapeutic Full Code Dispo-pending PT/OT evals and transition to SNF vs home with HH after casting [facility] Subjective 72 yo M with worsening R foot pain and inflammation. Here for treatment of Charcot foot. He reports pain is well controlled and only required two Tylenol today. He is otherwise afebrile, denies chills, SOB, Chest pain or other issues. He is tolerating PO. He has many questions regarding surgical options and activity restrictions as a result of this. Review of Systems Review of Systems: All systems reviewed & are unremarkable except as noted in HPI & below Physical Exam Physical Exam: CONSTITUTIONAL: obese, vitals as above, generally well- appearing EYES: normal conjunctivae, no scleral icterus ENT: MMM RESPIRATORY: clear to auscultation bilaterally, no crackles, rales or wheezes, normal respiratory effort CARDIOVASCULAR: regular rate and rhythm, S1 and 2 heard without murmurs, gallops or rubs, no JVD, no peripheral edema GASTROINTESTINAL: normal bowel sounds, soft, nontender, nondistended MUSCULOSKELETAL: strength 5/5 throughout, head is normocephalic and atraumatic SKIN: warm and dry NEUROLOGIC: CN 2-12 grossly intact, no sensory deficit, normal cognition, normal speech, no tremor PSYCHIATRIC: alert cooperative and oriented to person, place and time. Results & Data Vital Signs (Past 12 Hours) Vital Signs Temp Pulse Resp BP BP Pulse Ox 10/19/18 15:51 36.8 C 88 20 125/81 97 10/19/18 11:29 36.9 C 60 19 108/70 95 10/19/18 07:26 36.6 C 99 H 22 130/89 93 Laboratory Results Short CBC 10/19/18 Range/Units 07:30 WBC 7.62 (4.8-10.8) K/uL Hgb 13.5 L (14.0-18.0) g/dL Hct 40.7 L (42-52) % Plt Count 319 (130-400) K/uL BMP 10/19/18 07:30 Sodium 133 L Potassium 3.7 Chloride 99 Carbon Dioxide 30 BUN 23 H Creatinine 0.99 Glucose 117 H Calcium 9.7 Liver Function 10/19/18 Range/Units 07:30 Total Bilirubin 0.4 (0.2-1) mg/dl AST 24 (15-37) U/L ALT 28 (12-78) U/L Alkaline Phosphatase 106 (45-117) U/L Albumin 2.6 L (3.4-5.0) gm/dl Medications Administered Current Inpatient Medications Acetaminophen (Tylenol) 650 mg PO Q4H PRN PRN Reason: Pain or Fever Stop: 11/15/18 19:56 Last Admin: 10/19/18 11:40 Dose: 650 mg Documented by: Amiodarone HCl (Cordarone) 100 mg PO HS [facility] Stop: 11/15/18 20:59 Last Admin: 10/18/18 21:21 Dose: 100 mg Documented by: Cyanocobalamin (Vitamin B-12) 1,000 mcg PO DAILY@1600 [facility] Stop: 11/16/18 08:59 Last Admin: 10/19/18 16:10 Dose: 1,000 mcg Documented by: Dextrose (Dextrose 50%) 25 - 50 ml IV UD PRN; Protocol PRN Reason: Hypoglycemia Protocol Stop: 11/15/18 19:56 Duloxetine HCl (Cymbalta) 30 mg PO HS [facility] Stop: 11/15/18 20:59 Last Admin: 10/18/18 21:20 Dose: 30 mg Documented by: Finasteride (Proscar) 5 mg PO DAILY@1600 [facility] Stop: 11/16/18 08:59 Last Admin: 10/19/18 16:10 Dose: 5 mg Documented by: Fish Oil ([place]-3 (Purified Fish Oil)) 1 gm PO BID [facility] Stop: 11/15/18 20:59 Last Admin: 10/19/18 08:02 Dose: 1 gm Documented by: Glucagon (Glucagen) 1 mg SQ UD PRN; Protocol PRN Reason: Hypoglycemia Protocol Stop: 11/15/18 19:56 Glucose (Dex4 Glucose) 4 - 8 tabs PO UD PRN; Protocol PRN Reason: Hypoglycemia Protocol Stop: 11/15/18 19:56 Glucose (Glucose 40%) 15 - 30 gm PO UD PRN; Protocol PRN Reason: Hypoglycemia Protocol Stop: 11/15/18 19:56 Hydrocortisone (Anusol Hc) 25 mg OK QID PRN PRN Reason: Hemorrhoids Stop: 11/16/18 04:55 Insulin Aspart (Novolog Flexpen) 0 units SC ACHS [facility] Stop: 11/15/18 20:59 Last Admin: 10/19/18 12:52 Dose: 9 units Documented by: Ioversol (Optiray 320 100ml) 94 ml IV ONCE PRN PRN Reason: Interaction Checking Stop: 10/21/18 20:06 Last Admin: 10/17/18 20:07 Dose: 94 ml Documented by: Lactobacillus Acidophilus (Floranex) 1 tab PO DAILY@1600 [facility] Stop: 11/16/18 08:59 Last Admin: 10/19/18 16:09 Dose: 1 tab Documented by: Lorazepam (Ativan) 0.5 mg PO BID PRN PRN Reason: Anxiety Stop: 11/15/18 19:56 Losartan Potassium (Cozaar) 25 mg PO HS [facility] Stop: 11/15/18 20:59 Last Admin: 10/18/18 21:20 Dose: 25 mg Documented by: Magnesium Hydroxide (Milk Of Magnesia) 30 ml PO Q12H PRN PRN Reason: Constipation Stop: 11/15/18 19:56 Metoprolol Succinate (Toprol Xl) 100 mg PO BID@0900,1600 [facility] Stop: 11/17/18 08:59 Last Admin: 10/19/18 16:09 Dose: 100 mg Documented by: Miscellaneous (Carbohydrates For Hypoglycemia) 15 - 30 gm PO UD PRN PRN Reason: Hypoglycemia Treatment Stop: 11/15/18 19:56 Multivitamins (Multivitamin Tab) 1 tab PO DAILY@1600 [facility] Stop: 11/16/18 08:59 Last Admin: 10/19/18 16:09 Dose: 1 tab Documented by: Non-Formulary Medication (Zinc Oxide [Desitin]) 1 appln TOP BID PRN PRN Reason: Rash Ondansetron HCl (Zofran) 4 mg IV Q6H PRN PRN Reason: Nausea Stop: 11/15/18 19:56 Polyethylene Glycol (Miralax Powder Packet) 17 gm PO DAILY PRN PRN Reason: Constipation Stop: 11/15/18 19:56 Psyllium Hydrophilic Mucilloid (Metamucil) 1 pkt PO HS PRN PRN Reason: constipation Stop: 11/17/18 20:59 Last Admin: 10/18/18 23:37 Dose: 1 pkt Documented by: Tamsulosin HCl (Flomax) 0.4 mg PO HS [facility] Stop: 11/15/18 22:29 Last Admin: 10/18/18 21:22 Dose: 0.4 mg Documented by: Tramadol HCl (Ultram) 50 mg PO Q6H PRN PRN Reason: Pain Stop: 11/15/18 19:56 Triamterene/HCTZ (Dyazide 37.5/25mg) 1 cap PO DAILY [facility] Stop: 11/16/18 08:59 Last Admin: 10/19/18 09:47 Dose: 1 cap Documented by: Vitamin D (Vitamin D3) 1,000 units PO DAILY@1600 [facility] Stop: 11/16/18 08:59 Last Admin: 10/19/18 16:10 Dose: 1,000 units Documented by: Warfarin Sodium (Coumadin) 2.5 mg PO SuTuWeThSa@1600 [facility] Stop: 11/18/18 15:59 Last Admin: 10/19/18 15:31 Dose: 2.5 mg Documented by: Warfarin Sodium (Coumadin) 5 mg PO MoFr@1600 [facility] Stop: 11/20/18 15:59
--- NOTE | 2018-10-19 20:21 | Infectious Disease Progress Nt ---
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 Given lack of systemic complaints and prolonged nature of process, feel that more likely were dealing with progressive Charcot changes with acute fractures rather than infectious process. Would favor holding antibiotics. Will await input from Dr. Montero. Discussed with all involved. Will follow. Subjective Patient seen in follow-up for Charcot foot. No increase in pain, remains afebrile. No other new specific complaints. Review of Systems Review of Systems: All systems reviewed & are unremarkable except as noted in HPI & below Physical Exam Constitutional: WD/WN, vitals as above + obese and comfortable; no acute distress Eyes: PERRL, conjunctivae normal, anicteric sclerae ENMT: external ear and nose normal, oropharynx normal Neck: trachea midline, no thyromegaly neck nontender Respiratory: normal respiratory effort, lungs clear to auscultation normal percussion; does not use accessory muscles Cardiovascular: Rate/Rhythm: regular rate and regular rhythm Heart Sounds: normal S1 and normal S2; no gallop, no murmur and no cardiac rub Vessels: normal peripheral pulses; no JVD Gastrointestinal (Abdomen): normal bowel sounds, soft, nontender, no hepatosplenomegaly Musculoskeletal: no cyanosis or clubbing, extremities motor strength 5/5 Spine: thoracic spine normal to inspection and lumbar spine normal to inspection; no cervical spinal tenderness Skin: no rashes, warm and dry normal turgor and + erythema (Erythema with swelling distal half of the right foot) Neurologic: moves all extremities; no focal motor deficits Psychiatric: A+Ox3, euthymic affect Orientation: cooperative Lymphatic: no cervical or axillary lymphadenopathy no inguinal lymphadenopathy Results & Data Vital Signs (Past 12 Hours) Vital Signs Temp Pulse Pulse Resp BP BP Pulse Ox 10/19/18 20:00 36.9 C 95 H 22 124/76 96 10/19/18 15:51 36.8 C 88 20 125/81 97 10/19/18 11:29 36.9 C 60 19 108/70 95 Laboratory Results Laboratory Results - last 48 hr 10/17/18 10/18/18 10/18/18 20:21 07:17 07:17 WBC 8.03 RBC 4.64 L Hgb 13.8 L Hct 41.4 L MCV 89.2 MCH 29.7 MCHC 33.3 RDW Std Deviation 45.9 RDW Coeff of Chapis 14.0 Plt Count 343 MPV 10.1 Immature Gran % (Auto) 0.5 Neut % (Auto) 63.4 Lymph % (Auto) 21.2 Castro % (Auto) 11.5 Eos % (Auto) 3.2 Baso % (Auto) 0.2 Immature Gran # (Auto) 0.04 H Neut # (Auto) 5.09 Lymph # (Auto) 1.70 Castro # (Auto) 0.92 H Eos # (Auto) 0.26 Baso # (Auto) 0.02 PT 18.6 H INR 1.9 H Sodium Potassium Chloride Carbon Dioxide Anion Gap BUN Creatinine Est Cr Clr Drug Dosing Est GFR ( Amer) Est GFR (Non-Af Amer) BUN/Creatinine Ratio Glucose POC Glucose 95 Calcium Total Bilirubin AST ALT Alkaline Phosphatase Total Protein Albumin Globulin Albumin/Globulin Ratio 10/18/18 10/18/18 10/18/18 07:17 07:50 11:38 WBC RBC Hgb Hct MCV MCH MCHC RDW Std Deviation RDW Coeff of Chapis Plt Count MPV Immature Gran % (Auto) Neut % (Auto) Lymph % (Auto) Castro % (Auto) Eos % (Auto) Baso % (Auto) Immature Gran # (Auto) Neut # (Auto) Lymph # (Auto) Castro # (Auto) Eos # (Auto) Baso # (Auto) PT INR Sodium 134 L Potassium 3.3 L D Chloride 98 Carbon Dioxide 29 Anion Gap 7.0 BUN 24 H Creatinine 1.10 Est Cr Clr Drug Dosing 104.8 Est GFR ( Amer) 77.3 Est GFR (Non-Af Amer) 66.7 BUN/Creatinine Ratio 21.4 H Glucose 117 H POC Glucose 112 H 105 H Calcium 9.6 Total Bilirubin 0.5 AST 17 ALT 21 Alkaline Phosphatase 108 Total Protein 6.8 Albumin 2.7 L Globulin 4.1 H Albumin/Globulin Ratio 0.7 L 10/18/18 10/18/18 10/19/18 16:43 20:52 07:30 WBC 7.62 RBC 4.65 L Hgb 13.5 L Hct 40.7 L MCV 87.5 MCH 29.0 MCHC 33.2 RDW Std Deviation 44.8 RDW Coeff of Chapis 14.0 Plt Count 319 MPV 10.2 Immature Gran % (Auto) 0.7 Neut % (Auto) 66.4 Lymph % (Auto) 17.2 Castro % (Auto) 11.0 Eos % (Auto) 4.2 Baso % (Auto) 0.5 Immature Gran # (Auto) 0.05 H Neut # (Auto) 5.06 Lymph # (Auto) 1.31 Castro # (Auto) 0.84 H Eos # (Auto) 0.32 Baso # (Auto) 0.04 PT INR Sodium Potassium Chloride Carbon Dioxide Anion Gap BUN Creatinine Est Cr Clr Drug Dosing Est GFR ( Amer) Est GFR (Non-Af Amer) BUN/Creatinine Ratio Glucose POC Glucose 101 H 100 H Calcium Total Bilirubin AST ALT Alkaline Phosphatase Total Protein Albumin Globulin Albumin/Globulin Ratio 10/19/18 10/19/18 10/19/18 07:30 07:30 07:42 WBC RBC Hgb Hct MCV MCH MCHC RDW Std Deviation RDW Coeff of Chapis Plt Count MPV Immature Gran % (Auto) Neut % (Auto) Lymph % (Auto) Castro % (Auto) Eos % (Auto) Baso % (Auto) Immature Gran # (Auto) Neut # (Auto) Lymph # (Auto) Castro # (Auto) Eos # (Auto) Baso # (Auto) PT 15.8 H INR 1.6 H Sodium 133 L Potassium 3.7 Chloride 99 Carbon Dioxide 30 Anion Gap 4.0 BUN 23 H Creatinine 0.99 Est Cr Clr Drug Dosing 113.9 Est GFR ( Amer) 87.8 Est GFR (Non-Af Amer) 75.8 BUN/Creatinine Ratio 23.5 H Glucose 117 H POC Glucose 115 H Calcium 9.7 Total Bilirubin 0.4 AST 24 ALT 28 Alkaline Phosphatase 106 Total Protein 6.8 Albumin 2.6 L Globulin 4.2 H Albumin/Globulin Ratio 0.6 L 10/19/18 10/19/18 11:51 16:43 WBC RBC Hgb Hct MCV MCH MCHC RDW Std Deviation RDW Coeff of Chapis Plt Count MPV Immature Gran % (Auto) Neut % (Auto) Lymph % (Auto) Castro % (Auto) Eos % (Auto) Baso % (Auto) Immature Gran # (Auto) Neut # (Auto) Lymph # (Auto) Castro # (Auto) Eos # (Auto) Baso # (Auto) PT INR Sodium Potassium Chloride Carbon Dioxide Anion Gap BUN Creatinine Est Cr Clr Drug Dosing Est GFR ( Amer) Est GFR (Non-Af Amer) BUN/Creatinine Ratio Glucose POC Glucose 97 85 Calcium Total Bilirubin AST ALT Alkaline Phosphatase Total Protein Albumin Globulin Albumin/Globulin Ratio Diagnostic Findings Microbiology 10/16/18 17:02 Blood Aerobic Blood Culture - Preliminary No growth in Aerobic bottle after 48 hours. 10/16/18 17:02 Blood Anaerobic Blood Culture - Final 10/16/18 16:43 Blood Aerobic Blood Culture - Preliminary No growth in Aerobic bottle after 48 hours. 10/16/18 16:43 Blood Anaerobic Blood Culture - Preliminary No growth in Anaerobic bottle after 48 hours.
[2018-10-19] MEDS: DULOXETINE HCL 30 MG CAP PO SCH (21:02)
[2018-10-19] MEDS: TAMSULOSIN HCL 0.4 MG CAP PO SCH (21:02)
[2018-10-19] MEDS: AMIODARONE 200 MG TAB PO SCH (21:02)
[2018-10-19] MEDS: PSYLLIUM 58.6% POWDER PACKET PO PRN (21:02)
[2018-10-19] MEDS: LOSARTAN POTASSIUM 25 MG TAB PO SCH (21:02)
[2018-10-20 06:01] LABS: INR 1.6 (0.9-1.1); Prothrombin Time 15.5 Seconds (9.0-12.0)
[2018-10-20] MEDS: INSULIN ASPART 100 UNITS/ML 3 ML PEN SC SCH ×4 (08:19→21:53)
[2018-10-20] MEDS: METOPROLOL SUCC 50MG EXT REL TAB PO SCH ×2 (08:23→15:51)
[2018-10-20] MEDS: TRIAMTERENE/HCTZ 37.5/25MG CAP PO SCH (08:24)
[2018-10-20] MEDS: OMEGA-3 (PURIFIED FISH OIL) 1 GM CAP PO SCH ×2 (08:24→21:52)
[2018-10-20] MEDS: ENOXAPARIN INJ 40 MG/0.4 ML SYR SQ SCH (08:25)
--- NOTE | 2018-10-20 14:31 | Orthopedic Progress Note ---
Date of Service October 20, 2018 Assessment & Plan (1) Charcot's joint of right foot: Continue SLC for 6 weeks. Non weightbearing on the cast at this time. Follow up with Dr Montero in 2 weeks for cast check. Subjective Pt sitting up in bed. Awake, alert. No complaints. Pt was seen by Dr Montero last night. He and the patient discussed treatment for his Charcot foot. Dr Montero noted The Charcot foot was worsening on xray. Plans discussed with pt. He will need a short leg cast for 6 weeks. Pt agreeable to cast. Physical Exam Physical Exam: Noted Charcot deformity of the right foot. No open wounds. Moderate swelling of the RLE. Cap refill less than 2 seconds. Neuropathy noted by pt from the mid tibia to foot. Short leg cast applied to the RLE with foot in neutral position by myself and Manuel Avila PA-C. Pt tolerated cast application without difficulty. Results & Data Vital Signs (Past 12 Hours) Vital Signs Temp Pulse Resp BP BP Pulse Ox 10/20/18 12:03 36.8 C 87 20 116/73 95 10/20/18 07:37 36.7 C 52 L 20 134/85 96 10/20/18 03:59 36.4 C L 67 20 119/79 92
[2018-10-20] MEDS: MULTIVITAMIN TAB PO SCH (15:50)
[2018-10-20] MEDS: FINASTERIDE 5 MG TAB PO SCH (15:51)
[2018-10-20] MEDS: WARFARIN SOD 2.5 MG TAB PO SCH (15:52)
[2018-10-20] MEDS: LACTOBACILLUS ACIDOPHILUS (FLORANEX) TAB PO SCH (15:53)
[2018-10-20] MEDS: CYANOCOBALAMIN 500 MCG TABLET (VITAMIN B-12) PO SCH (15:54)
[2018-10-20] MEDS: CHOLECALCIFEROL 1,000 UNITS TAB PO SCH (15:54)
--- NOTE | 2018-10-20 18:39 | Hospitalist Progress Note ---
Date of Service October 20, 2018 Assessment & Plan (1) Charcot's joint of right foot: Pain controlled with Tylenol. Ortho set cast today-auth pending to SNF in am. Pt working with PT/OT on accomplishing ADLs while being NWB. 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 f/u at Dr. Montero's office in two weeks. (2) PAF (paroxysmal atrial fibrillation): Cont amio 100mg PO HS, Toprol XL 100mg PO BID and coumadin was restarted on 10/18. Trend daily INR until therapeutic and stable. (3) HTN (hypertension): At goal, continue home dose triamterene/HCTZ, losartan, and Toprol XL 100 BID (4) HLD (hyperlipidemia): simvastatin (5) Pre-diabetes: Pt is managed as outpatient with metformin and lifestyle efforts including dietary restrictions. Stopped carb coverage and cont correction factor if needed per scale and add Lantus 10 Units at night with titration based on fasting blood glucose while he is in the hospital. When he is discharged, he will be fine to return to the metformin. (6) Morbid obesity: Morbid obesity with BMI 53.8 due to excess calories -patients morbid obesity does not help with patients right foot swelling -encouraged to keep elevate right foot at rest as possible (7) ARVIND on CPAP: CPAP qHS (8) DVT prophylaxis: DVT ppx: coumadin Lovenox while INR subtherapeutic Full Code Dispo-pending PT/OT evals and transition to SNF vs home with HH after casting by Ortho [facility] Hospitalist Subjective Pt upset about NWB status and how he will accomplish this. Denies pain in foot, awaiting auth to SNF. Therapy working with him today. Received a case to RLE Review of Systems Review of Systems: All systems reviewed & are unremarkable except as noted in HPI & below Physical Exam Physical Exam: CONSTITUTIONAL: obese, vitals as above, generally well- appearing EYES: normal conjunctivae, no scleral icterus ENT: MMM RESPIRATORY: clear to auscultation bilaterally, no crackles, rales or wheezes, normal respiratory effort CARDIOVASCULAR: regular rate and rhythm, S1 and 2 heard without murmurs, gallops or rubs, no JVD, no peripheral edema GASTROINTESTINAL: normal bowel sounds, soft, nontender, nondistended MUSCULOSKELETAL: strength 5/5 throughout, head is normocephalic and atraumatic, RLE with cast in place. SKIN: warm and dry NEUROLOGIC: CN 2-12 grossly intact, no sensory deficit, normal cognition, normal speech, no tremor PSYCHIATRIC: alert cooperative and oriented to person, place and time. Results & Data Vital Signs (Past 12 Hours) Vital Signs Temp Pulse Resp BP BP Pulse Ox 10/20/18 16:33 36.8 C 97 H 20 116/72 94 10/20/18 12:03 36.8 C 87 20 116/73 95 10/20/18 07:37 36.7 C 52 L 20 134/85 96 Medications Administered Current Inpatient Medications Acetaminophen (Tylenol) 650 mg PO Q4H PRN PRN Reason: Pain or Fever Stop: 11/15/18 19:56 Last Admin: 10/19/18 11:40 Dose: 650 mg Documented by: Amiodarone HCl (Cordarone) 100 mg PO [facility] Stop: 11/15/18 20:59 Last Admin: 10/19/18 21:02 Dose: 100 mg Documented by: Cyanocobalamin (Vitamin B-12) 1,000 mcg PO DAILY@1600 [facility] Stop: 11/16/18 08:59 Last Admin: 10/20/18 15:54 Dose: 1,000 mcg Documented by: Dextrose (Dextrose 50%) 25 - 50 ml IV UD PRN; Protocol PRN Reason: Hypoglycemia Protocol Stop: 11/15/18 19:56 Duloxetine HCl (Cymbalta) 30 mg PO [facility] Stop: 11/15/18 20:59 Last Admin: 10/19/18 21:02 Dose: 30 mg Documented by: Enoxaparin Sodium (Lovenox) 40 mg SQ QAM [facility] Stop: 11/19/18 08:59 Last Admin: 10/20/18 08:25 Dose: 40 mg Documented by: Finasteride (Proscar) 5 mg PO DAILY@1600 [facility] Stop: 11/16/18 08:59 Last Admin: 10/20/18 15:51 Dose: 5 mg Documented by: Fish Oil ([place]-3 (Purified Fish Oil)) 1 gm PO BID [facility] Stop: 11/15/18 20:59 Last Admin: 10/20/18 08:24 Dose: 1 gm Documented by: Glucagon (Glucagen) 1 mg SQ UD PRN; Protocol PRN Reason: Hypoglycemia Protocol Stop: 11/15/18 19:56 Glucose (Dex4 Glucose) 4 - 8 tabs PO UD PRN; Protocol PRN Reason: Hypoglycemia Protocol Stop: 11/15/18 19:56 Glucose (Glucose 40%) 15 - 30 gm PO UD PRN; Protocol PRN Reason: Hypoglycemia Protocol Stop: 11/15/18 19:56 Hydrocortisone (Anusol Hc) 25 mg MO QID PRN PRN Reason: Hemorrhoids Stop: 11/16/18 04:55 Insulin Aspart (Novolog Flexpen) 0 units SC [facility] Stop: 11/15/18 20:59 Last Admin: 10/20/18 12:18 Dose: Not Given Documented by: Insulin Glargine (Lantus Solostar Pen) 10 units SC HS [facility] Stop: 11/19/18 20:59 Ioversol (Optiray 320 100ml) 94 ml IV ONCE PRN PRN Reason: Interaction Checking Stop: 10/21/18 20:06 Last Admin: 10/17/18 20:07 Dose: 94 ml Documented by: Lactobacillus Acidophilus (Floranex) 1 tab PO DAILY@1600 [facility] Stop: 11/16/18 08:59 Last Admin: 10/20/18 15:53 Dose: 1 tab Documented by: Lorazepam (Ativan) 0.5 mg PO BID PRN PRN Reason: Anxiety Stop: 11/15/18 19:56 Losartan Potassium (Cozaar) 25 mg PO HS [facility] Stop: 11/15/18 20:59 Last Admin: 10/19/18 21:02 Dose: 25 mg Documented by: Magnesium Hydroxide (Milk Of Magnesia) 30 ml PO Q12H PRN PRN Reason: Constipation Stop: 11/15/18 19:56 Metoprolol Succinate (Toprol Xl) 100 mg PO BID@0900,1600 [facility] Stop: 11/17/18 08:59 Last Admin: 10/20/18 15:51 Dose: 100 mg Documented by: Miscellaneous (Carbohydrates For Hypoglycemia) 15 - 30 gm PO UD PRN PRN Reason: Hypoglycemia Treatment Stop: 11/15/18 19:56 Multivitamins (Multivitamin Tab) 1 tab PO DAILY@1600 [facility] Stop: 11/16/18 08:59 Last Admin: 10/20/18 15:50 Dose: 1 tab Documented by: Non-Formulary Medication (Zinc Oxide [Desitin]) 1 appln TOP BID PRN PRN Reason: Rash Ondansetron HCl (Zofran) 4 mg IV Q6H PRN PRN Reason: Nausea Stop: 11/15/18 19:56 Polyethylene Glycol (Miralax Powder Packet) 17 gm PO DAILY PRN PRN Reason: Constipation Stop: 11/15/18 19:56 Psyllium Hydrophilic Mucilloid (Metamucil) 1 pkt PO HS PRN PRN Reason: constipation Stop: 11/17/18 20:59 Last Admin: 10/19/18 21:02 Dose: 1 pkt Documented by: Simvastatin (Zocor) 20 mg PO PM [facility] Stop: 11/19/18 20:59 Tamsulosin HCl (Flomax) 0.4 mg PO HS [facility] Stop: 11/15/18 22:29 Last Admin: 10/19/18 21:02 Dose: 0.4 mg Documented by: Tramadol HCl (Ultram) 50 mg PO Q6H PRN PRN Reason: Pain Stop: 11/15/18 19:56 Triamterene/HCTZ (Dyazide 37.5/25mg) 1 cap PO DAILY [facility] Stop: 11/16/18 08:59 Last Admin: 10/20/18 08:24 Dose: 1 cap Documented by: Vitamin D (Vitamin D3) 1,000 units PO DAILY@1600 [facility] Stop: 11/16/18 08:59 Last Admin: 10/20/18 15:54 Dose: 1,000 units Documented by: Warfarin Sodium (Coumadin) 2.5 mg PO SuTuWeThSa@1600 [facility] Stop: 11/18/18 15:59 Last Admin: 10/20/18 15:52 Dose: 2.5 mg Documented by: Warfarin Sodium (Coumadin) 5 mg PO MoFr@1600 [facility] Stop: 11/20/18 15:59
--- NOTE | 2018-10-20 18:54 | Infectious Disease Progress Nt ---
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 Given lack of systemic complaints and prolonged nature of process, feel that more likely were dealing with progressive Charcot changes with acute fractures rather than infectious process. Would favor holding antibiotics. will follow. Subjective Pt sitting up in bed. Awake, alert. No complaints. Pt was seen by Dr Montero last night. He and the patient discussed treatment for his Charcot foot. Dr Montero noted The Charcot foot was worsening on xray. Plans discussed with pt. He will need a short leg cast for 6 weeks. Pt agreeable to cast. Physical Exam Constitutional: WD/WN, vitals as above + obese and comfortable; no acute distress Eyes: PERRL, conjunctivae normal, anicteric sclerae ENMT: external ear and nose normal, oropharynx normal Neck: trachea midline, no thyromegaly neck nontender Respiratory: normal respiratory effort, lungs clear to auscultation normal percussion; does not use accessory muscles Cardiovascular: Rate/Rhythm: regular rate and regular rhythm Heart Sounds: normal S1 and normal S2; no gallop, no murmur and no cardiac rub Vessels: normal peripheral pulses; no JVD Gastrointestinal (Abdomen): normal bowel sounds, soft, nontender, no hepatosplenomegaly Musculoskeletal: no cyanosis or clubbing, extremities motor strength 5/5 Spine: thoracic spine normal to inspection and lumbar spine normal to inspect ion; no cervical spinal tenderness Skin: no rashes, warm and dry normal turgor and + erythema (Erythema with swelling distal half of the right foot) Neurologic: moves all extremities; no focal motor deficits Psychiatric: A+Ox3, euthymic affect Orientation: cooperative Lymphatic: no cervical or axillary lymphadenopathy no inguinal lymphadenopathy Results & Data Vital Signs (Past 12 Hours) Vital Signs Temp Pulse Resp BP BP Pulse Ox 10/20/18 16:33 36.8 C 97 H 20 116/72 94 10/20/18 12:03 36.8 C 87 20 116/73 95 10/20/18 07:37 36.7 C 52 L 20 134/85 96
[2018-10-20] MEDS ORDERED: INSULIN GLARGINE SOLOSTAR 100 UNITS/ML 3 ML PEN SC SCH (21:00)
[2018-10-20] MEDS ORDERED: LOSARTAN POTASSIUM 25 MG TAB PO SCH (21:00)
[2018-10-20] MEDS: AMIODARONE 200 MG TAB PO SCH (21:48)
[2018-10-20] MEDS: DULOXETINE HCL 30 MG CAP PO SCH (21:52)
[2018-10-20] MEDS: TAMSULOSIN HCL 0.4 MG CAP PO SCH (21:52)
[2018-10-20] MEDS: LOSARTAN POTASSIUM 25 MG TAB PO SCH (21:52)
[2018-10-20] MEDS: SIMVASTATIN 20 MG TAB PO SCH (21:53)
[2018-10-20] MEDS: PSYLLIUM 58.6% POWDER PACKET PO PRN (23:55)
[2018-10-21 06:27] LABS: INR 1.6 (0.9-1.1); Prothrombin Time 15.6 Seconds (9.0-12.0)
[2018-10-21] MEDS: INSULIN ASPART 100 UNITS/ML 3 ML PEN SC SCH ×3 (08:24→17:51)
[2018-10-21] MEDS: METOPROLOL SUCC 50MG EXT REL TAB PO SCH ×2 (08:28→15:44)
[2018-10-21] MEDS: ENOXAPARIN INJ 40 MG/0.4 ML SYR SQ SCH (08:28)
[2018-10-21] MEDS: TRIAMTERENE/HCTZ 37.5/25MG CAP PO SCH (08:28)
[2018-10-21] MEDS: OMEGA-3 (PURIFIED FISH OIL) 1 GM CAP PO SCH ×2 (08:28→19:39)
--- NOTE | 2018-10-21 14:18 | Discharge Summary ---
Date of Service October 21, 2018 Admission HPI Per Admitting Provider This is a 72-year-old male who has a significant past medical history of HTN, HLD, PAF anticoagulated on warfarin, pre-diabetes, neuropathy, ARVIND on CPAP, GERD who presents to [facility] ED secondary to worsening swelling of right lower extremity since July. Patient notes since July he has been having increased swelling of right foot. He has seen his PCP as well as podiatry who had sent him for imaging. Finally on 10/01 he presented to [place] ER due to continued swelling and pain. X-ray revealed acute calcaneal fracture, acute avulsion fracture of medial malleolus. CT scan of lower extre mity revealed acute comminuted probably pathologic fracture of calcaneus with possible pathologic fracture of talus not excluded. Underlying osteolytic lesions not excluded. He was given a splint and recommended to follow-up with orthopedics. Unfortunately early as he could follow-up with orthopedics was on 10/12 in which he went to [facility] orthopedics Dr. Tyson. At that time he was placed non weight bearing shoe and to return in 6 weeks. 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 Given pain and swelling in lower extremity makes mobility very difficult. has been having difficult time managing patient at home due to limited mobility, pain and not weightbearing status. They opted to present to ED today because was at "wits end," and needed somebody to evaluate his foot. She also notes the swelling just continues to get progressively worse. The patient otherwise denies any fever, chills, sweats, lightheadedness, dizziness, chest pain, shortness of breath, palpitations, cough, hemoptysis, nausea, vomiting, diarrhea, abdominal pain, changes bowel or urinary habits. His appetite is been otherwise stable. Taking his medications as prescribed. He is very particular on timing of his medications. He is compliant with his CPAP. Admission Exam Per Admitting Provider Gen: Morbidly obese M, sitting in recliner, NAD, flat affected, conversing easily Head: Normocephalic, Atraumatic Eyes: Sclera normal, no conjunctival injection, PERRLA, EOMI ENT: Gross hearing intact, normal pharynx, mucous membranes moist Neck: supple, no adenopathy, No JVD, no bruit, Resp: Clear to auscultation b/l, no wheeze, rales, rhonchi. Normal insp/exp effort, no accessory muscle use CV: Regular rate, regular rhythm, no murmur, rub, gallop, or ectopy Abd: distended abd due to obesity, +BS x 4, soft, nontender, nondistended Musculoskeletal: R foot and ankle significant edema/deformity, foot everted, able to dorsiflex/plantar flex but unable to flex/extend toes, unable to invert or katie RLE ankle, otherwise strength intact upper ext and LLE Extremities: Significant RLE ankle/pedal edema, No LLE edema Skin: warm, moist, no rash, negative turgor, cap refill < 2sec Neuro: Alert and oriented x 3, speech normal, good mood/affect, cran nerve 2-12 intact grossly : deferred Principal Diagnosis Charcot foot, right Discharge Data Allergies Allergy/AdvReac Type Severity Reaction Status Date / Time Penicillins Allergy Severe edema of Unverified 10/16/18 17:11 airway cephalexin Allergy Mild Unknown Unverified 10/16/18 14:50 codeine Allergy Mild Unknown Unverified 10/16/18 14:50 furosemide [From Lasix] Allergy Mild Unknown Unverified 10/16/18 14:50 gabapentin Allergy Mild Unknown Unverified 10/16/18 14:50 Consultations 10/16/18 17:03 ED Decision to Admit Stat 10/16/18 19:57 Consult Orthopedic Surgery Routine 10/18/18 09:53 Consult Infectious Diseases Routine 10/20/18 05:13 Consult Case Management - Discharge Planning Routine Ordered Studies 10/16/18 14:12 US venous doppler LE RT Stat 10/17/18 14:51 CT foot RT w con Routine Hospital Course (1) Charcot's joint of right foot: (2) PAF (paroxysmal atrial fibrillation): (3) HTN (hypertension): (4) HLD (hyperlipidemia): (5) Pre-diabetes: (6) Morbid obesity: (7) ARVIND on CPAP: 72-year-old uncontrolled diabetic was admitted to the hospitalist service with is acute swelling and pain of the right foot and a right calcaneal fracture. He was initially placed on broad-spectrum IV antibiotics and infectious disease was consulted. A venous Doppler of the right lower extremity revealed no sonographic evidence of deep venous thrombosis. A right foot x-ray, 3 view, revealed diffuse soft tissue edema, advanced arthritic changes throughout the midfoot and hindfoot likely representing a Charcot foot, questionable bullae erosive change with bony sclerosis and small ossific fragments along the dorsal aspect of the talus-osteomyelitis impossible to exclude. The calcaneus appeared foreshortened with bony fragmentation and anteriorly and collapse of the talocalcaneal articulation with small avulsed fragment seen along the medial aspect of the hindfoot. If follow-up foot CT on the right side confirmed calcaneal fracture favoring an old traumatic injury with neuropathic arthropathy involving Chopart's joint. Charcot foot was also favored from this. Infectious disease recommended stopping antibiotics and he continued to do well clinically. Orthopedics was consulted and placed a cast on his lower right foot and leg for 6 weeks with strict nonweightbearing activity recommendations. Throughout his hospitalization he remained hemodynamically stable and afebrile. He was discharged to a [place] [facility] facility in stable condition with close primary care follow-up recommended. Total Time Total Time Spent Total Time Spent (In Minutes): 60 Total Time Includes: Examination of the Patient, Discharge Planning, Medication Reconciliation and Communication With Other Providers Discharge Plan Discharge Items Patient Disposition: Transfer Correction Fac Reason For Visit: CORWIN,R/O OM Discharge Diagnosis: Charcot foot, right Condition: Good Discharge Goals: Decrease discomfort, Improve disease control and Increase independence Activity: Resume your previous activity Non-emergency contact: Primary Care Provider Call non-emergency contact if: you have any medication questions, your symptoms worsen, your pain is not controlled, your pain is worsening, your pain is unusual for you, your pain is concerning for you and you have a fever Follow-up/Referrals: Kyler Choudhury MD [Primary Care Provider] - Diet: Low Sodium (2gm) Addtl Provider Instructions: Keep cast clean and dry Non-weightbearing on the Right Lower Extremity. Follow up with Dr Montero in 2 weeks. Call for appointment. [phone] ADDITIONAL HOSPITALIST INSTRUCTIONS: Please take all medications as instructed on discharge list below. It is recommended that you follow-up with your primary care provider within one week of discharge from the receiving facility, or sooner if needed. Staff at receiving facility should check your INR level daily and adjust coumadin dosage until INR is at goal 2-3. It is currently 1.6 and subtherapeutic. It was a pleasure taking care of you! Please call if you have any questions or problems. You can reach a [facility] hospitalist on duty at [facility] 24 hours a day by calling [phone]. Take care of yourself. Brooklyn Spain, DO [facility] Hospitalist Prescriptions: Continued multivitamin Tablet 1 tab PO DAILY RF: 0 nystatin 100,000 unit/gram Ointment 1 applic TOPICAL BID RF: 0 amiodarone 200 mg tablet 100 mg PO HS RF: 0 metoprolol succinate 50 mg tablet extended release 24 hr 100 mg PO BID RF: 0 metformin 850 mg tablet 850 mg PO BID RF: 0 cyanocobalamin (vitamin B-12) [Vitamin B-12] 1,000 mcg Tablet 1,000 mcg PO DAILY RF: 0 fexofenadine 180 mg Tablet 180 mg PO DAILY PRN (Reason: Allergy Symptoms) RF: 0 tramadol 50 mg Tablet 50 mg PO Q6H PRN (Reason: Pain) RF: 0 triamterene-hydrochlorothiazid 37.5-25 mg capsule 1 cap PO DAILY RF: 0 lorazepam 0.5 mg Tablet 0.5 mg PO BID PRN (Reason: Anxiety) RF: 0 tamsulosin 0.4 mg Capsule 0.4 mg PO DAILY RF: 0 econazole 1 % cream topical UD RF: 0 simvastatin 20 mg Tablet 20 mg PO PM RF: 0 warfarin 5 mg tablet 2.5 mg PO 5XWK RF: 0 warfarin 5 mg tablet 5 mg PO 2XWK RF: 0 losartan 25 mg Tablet 25 mg PO HS RF: 0 nystatin 100,000 unit/gram Powder 1 applic TOPICAL TID RF: 0 Lactobacillus acidophilus [Acidophilus] Capsule 100 mg PO DAILY RF: 0 fluticasone propionate [Flonase Allergy Relief] 50 mcg/actuation [place],Suspension 2 spray INTRANASAL DAILY RF: 0 L-Phenylalanine 500 mg Tablet 500 mg PO DAILY RF: 0 finasteride 5 mg tablet 5 mg PO DAILY RF: 0 cholecalciferol (vitamin D3) [Vitamin D3] 1,000 unit Capsule 1,000 unit PO DAILY RF: 0 coenzyme Q10 100 mg Capsule 100 mg PO DAILY RF: 0 duloxetine 30 mg capsule,delayed release(DR/EC) 30 mg PO HS RF: 0 PreviDent 5000 Sensitive 1.1-5 % Paste 1 applic DENTAL DAILY RF: 0 arginine HCl (L-arginine) 1,000 mg Tablet 1,000 mg PO DAILY RF: 0 omega 9-mkv-sgv-fish oil [Fish Oil] 1,000 mg (120 mg-180 mg) Capsule 1 cap PO BID RF: 0 Desitin 13 % Cream 1 applic TOPICAL BID PRN (Reason: Rash) RF: 0 Metamucil 3.4 gram/5.4 gram Powder 1 tbsp PO DAILY RF: 0 Stand-Alone Forms: [facility]Other Patient Handouts: Prediabetes, Diabetes Retirement Complications, Diabetes Healthy Meals, Diabetes Exercise Benefits Discharge Orders: Discharge Order (Routine); Ordered 10/21/18 Ordered By: Brooklyn Spain Skilled Items Patient informed of condition?: Yes DNR: No Discharge Level of Care: Skilled Communicable Disease: No Discharge Prognosis: Stable Admission Data Admit Date/Time: 10/16/18 18:11 Attending Provider: Brooklyn Spain Admit Provider: Evans Vitale Primary Care Provider: Kyler Choudhury Other Providers: Evans Vitale ; Davi Montero ; Khurram Allen Service: Telemetry Medical Other Interventions: Discharge Summary Assessment (RN) Last Done: 10/21/18 15:13 DC Date/Time DO NOT enter until pt leaves facility: 10/21/18 20:05
[2018-10-21] MEDS: FINASTERIDE 5 MG TAB PO SCH (15:42)
[2018-10-21] MEDS: CYANOCOBALAMIN 500 MCG TABLET (VITAMIN B-12) PO SCH (15:43)
[2018-10-21] MEDS: MULTIVITAMIN TAB PO SCH (15:44)
[2018-10-21] MEDS: LACTOBACILLUS ACIDOPHILUS (FLORANEX) TAB PO SCH (15:44)
[2018-10-21] MEDS: CHOLECALCIFEROL 1,000 UNITS TAB PO SCH (15:45)
[2018-10-21] MEDS ORDERED: WARFARIN SOD 5 MG TAB PO SCH (16:00)
--- NOTE | 2018-10-21 16:36 | Infectious Disease Progress Nt ---
Date of Service October 21, 2018 Assessment & Plan (1) Charct's arthropathy due to secondary diabetes: 72-year-old male with long-standing diabetes mellitus with peripheral neuropathy with progressive right foot swelling, deformity, and erythema. Given lack of systemic complaints and prolonged nature of process, feel that more likely were dealing with progressive Charcot changes with acute fractures rather than infectious process. Antibiotics will be held, patient to follow-up with orthopedic surgery. Subjective Patient seen in follow-up for Charcot foot. No increase in pain, remains afebrile. No other new specific complaints. Physical Exam Constitutional: WD/WN, vitals as above + obese and comfortable; no acute distress Eyes: PERRL, conjunctivae normal, anicteric sclerae ENMT: external ear and nose normal, oropharynx normal Neck: trachea midline, no thyromegaly neck nontender Respiratory: normal respiratory effort, lungs clear to auscultation normal percussion; does not use accessory muscles Cardiovascular: Rate/Rhythm: regular rate and regular rhythm Heart Sounds: normal S1 and normal S2; no gallop, no murmur and no cardiac rub Vessels: normal peripheral pulses; no JVD Gastrointestinal (Abdomen): normal bowel sounds, soft, nontender, no hepatosplenomegaly Musculoskeletal: no cyanosis or clubbing, extremities motor strength 5/5 Spine: thoracic spine normal to inspection and lumbar spine normal to inspection; no cervical spinal tenderness Skin: no rashes, warm and dry normal turgor and + erythema (Erythema with swelling distal half of the right foot) Neurologic: moves all extremities; no focal motor deficits Psychiatric: A+Ox3, euthymic affect Orientation: cooperative Lymphatic: no cervical or axillary lymphadenopathy no inguinal lymphadenopathy Results & Data Vital Signs (Past 12 Hours) Vital Signs Temp Pulse Pulse Resp BP BP Pulse Ox 10/21/18 15:40 71 128/76 10/21/18 15:13 36.5 C 73 88 20 129/76 134/85 95 10/21/18 15:00 36.9 C 68 18 119/80 97 10/21/18 07:35 36.5 C 73 20 129/76 95 Laboratory Results Laboratory Results - last 48 hr 10/19/18 10/19/18 10/20/18 16:43 20:12 05:31 PT 15.5 H INR 1.6 H POC Glucose 85 101 H 10/20/18 10/20/18 10/20/18 07:56 11:57 16:59 PT INR POC Glucose 120 H 127 H 112 H 10/20/18 10/21/18 10/21/18 20:58 05:47 07:56 PT 15.6 H INR 1.6 H POC Glucose 124 H 109 H 10/21/18 11:53 PT INR POC Glucose 123 H Diagnostic Findings Microbiology 10/16/18 17:02 Blood Aerobic Blood Culture - Preliminary No growth in Aerobic bottle after 48 hours. 10/16/18 17:02 Blood Anaerobic Blood Culture - Final 10/16/18 16:43 Blood Aerobic Blood Culture - Preliminary No growth in Aerobic bottle after 48 hours. 10/16/18 16:43 Blood Anaerobic Blood Culture - Preliminary No growth in Anaerobic bottle after 48 hours.
[2018-10-21] MEDS: AMIODARONE 200 MG TAB PO SCH (19:40)
[2018-10-21] MEDS: DULOXETINE HCL 30 MG CAP PO SCH (19:40)
[2018-10-21] MEDS: LOSARTAN POTASSIUM 25 MG TAB PO SCH (19:41)
[2018-10-21] MEDS: TAMSULOSIN HCL 0.4 MG CAP PO SCH (19:42)
[2018-10-21] MEDS: SIMVASTATIN 20 MG TAB PO SCH (19:42)
== END 2018-10-21 20:05 | DRG 74 ==
LOC: ED 13:06 → 2W 18:11 → SUATTDRO 18:11 → 2W 19:14 → 4W 10-20 19:36
DX: E11.610 Type 2 diabetes mellitus with diabetic neuropathic arthropathy; X58.XXXA Exposure to other specified factors, initial encounter; Z88.0 Allergy status to penicillin; E11.40 Type 2 diabetes mellitus with diabetic neuropathy, unspecified; K21.9 Gastro-esophageal reflux disease without esophagitis; Y92.89 Other specified places as the place of occurrence of the external cause; Z68.43 Body mass index [BMI] 50.0-59.9, adult; E78.5 Hyperlipidemia, unspecified; S92.021A Displaced fracture of anterior process of right calcaneus, initial encounter for closed fracture; E66.01 Morbid (severe) obesity due to excess calories; I10 Essential (primary) hypertension; I48.0 Paroxysmal atrial fibrillation; L03.115 Cellulitis of right lower limb; I48.91 Unspecified atrial fibrillation

== ENCOUNTER 2019-01-20 08:18 | Inpatient (IN) ==
--- NOTE | 2019-01-02 08:50 | PAT Medication Instructions ---
Medication Instructions Date of Service January 02, 2019 Home Medications Lactobacillus acidophilus [Acidophilus] 100 mg PO DAILY Metamucil 1 tbsp PO DAILY PRN PreviDent 5000 Sensitive 1 applic DENTAL BID arginine HCl (L-arginine) 1,000 mg PO DAILY cholecalciferol (vitamin D3) [Vitamin D3] 1,000 unit PO DAILY coenzyme Q10 100 mg PO DAILY cyanocobalamin (vitamin B-12) [Vitamin B-12] 1,000 mcg PO DAILY duloxetine 30 mg PO DAILY econazole 1 applic TOPICAL UD finasteride 5 mg PO DAILY fluticasone propionate [Flonase Allergy Relief] 2 spray INTRANASAL DAILY metformin 850 mg PO BID nystatin 1 applic TOPICAL BID omega 7-gkq-tph-fish oil [Fish Oil] 1 cap PO BID tamsulosin 0.4 mg PO DAILY triamterene-hydrochlorothiazid 1 cap PO DAILY acetaminophen [Tylenol] 650 mg PO Q6H PRN amiodarone 100 mg PO DAILY atorvastatin 20 mg PO DAILY bisacodyl [Dulcolax (bisacodyl)] 10 mg PO HS capsaicin-menthol [Capzasin] 1 ea TOPICAL DAILY PRN fexofenadine 180 mg PO DAILY PRN losartan 25 mg PO DAILY magnesium hydroxide [Milk of Magnesia] 30 ml PO DAILY PRN menthol [Biofreeze (menthol)] 1 applic TOPICAL BID PRN metoprolol succinate 100 mg PO DAILY multivitamin 1 tab PO DAILY phenylalanine [L-Phenylalanine] 750 mg PO DAILY phenyleph-min oil-petrolatum [Preparation H] 1 applic MA AMHS PRN sodium phosphates [Enema] 118 ml MA HS PRN tramadol 50 mg PO Q6H PRN warfarin [Coumadin] 2 mg PO DAILY zinc oxide-cod liver oil [Desitin] 40 % TOPICAL DAILY ASK your prescriber and surgeon warfarin [Coumadin] 2 mg PO DAILY STOP taking 2 weeks before surgery (or as soon as possible if surgery is within 2 weeks) arginine HCl (L-arginine) 1,000 mg PO DAILY coenzyme Q10 100 mg PO DAILY omega 4-shg-uhx-fish oil [Fish Oil] 1 cap PO BID phenylalanine [L-Phenylalanine] 750 mg PO DAILY STOP taking 24 hours before surgery econazole 1 applic TOPICAL UD nystatin 1 applic TOPICAL BID menthol [Biofreeze (menthol)] 1 applic TOPICAL BID PRN zinc oxide-cod liver oil [Desitin] 40 % TOPICAL DAILY phenyleph-min oil-petrolatum [Preparation H] 1 applic MA AMHS PRN DO NOT take the morning of surgery Lactobacillus acidophilus [Acidophilus] 100 mg PO DAILY Metamucil 1 tbsp PO DAILY PRN PreviDent 5000 Sensitive 1 applic DENTAL BID cholecalciferol (vitamin D3) [Vitamin D3] 1,000 unit PO DAILY cyanocobalamin (vitamin B-12) [Vitamin B-12] 1,000 mcg PO DAILY metformin 850 mg PO BID triamterene-hydrochlorothiazid 1 cap PO DAILY fexofenadine 180 mg PO DAILY PRN losartan 25 mg PO DAILY magnesium hydroxide [Milk of Magnesia] 30 ml PO DAILY PRN multivitamin 1 tab PO DAILY Take morning of surgery With a small sip of water, OTHERWISE NOTHING TO EAT OR DRINK AFTER MIDNIGHT: duloxetine 30 mg PO DAILY finasteride 5 mg PO DAILY fluticasone propionate [Flonase Allergy Relief] 2 spray INTRANASAL DAILY tamsulosin 0.4 mg PO DAILY acetaminophen [Tylenol] 650 mg PO Q6H PRN (okay to take up to 4 hours prior to surgery if needed) amiodarone 100 mg PO DAILY atorvastatin 20 mg PO DAILY metoprolol succinate 100 mg PO DAILY tramadol 50 mg PO Q6H PRN (okay to take up to 4 hours prior to surgery if needed) Other Notes If you have any questions please call us at [phone] or [phone] or [phone] or [phone]
--- NOTE | 2019-01-17 10:28 | Anesthesiology Consultation ---
Date of Service January 17, 2019 Assessment & Plan (1) Encounter for pre-operative examination: Chart Review Chart Review: Acceptable Risk for Surgery History Surgery Operation Date: 01/20/19 12:10 Proposed Procedures p Right Below Knee Amputation - Davi Montero DO Height/Weight Height: 6 ft Weight: 181.437 kg Allergies Allergy/AdvReac Type Severity Reaction Status Date / Time Penicillins Allergy Severe edema of Verified 12/30/18 11:55 airway cephalexin Allergy Mild Unknown Verified 12/30/18 11:55 codeine Allergy Mild Unknown Verified 12/30/18 11:55 furosemide [From Lasix] Allergy Mild Unknown Verified 12/30/18 11:55 gabapentin Allergy Mild Unknown Verified 12/30/18 11:55 Medications Home Medications Medication Instructions Recorded Confirmed Last Taken Lactobacillus acidophilus 100 mg PO DAILY 10/16/18 12/30/18 Unknown [Acidophilus] Metamucil 1 tbsp PO DAILY PRN 10/16/18 12/30/18 Unknown PreviDent 5000 Sensitive 1 applic DENTAL BID 10/16/18 12/30/18 Unknown arginine HCl (L-arginine) 1,000 mg PO DAILY 10/16/18 12/30/18 Unknown cholecalciferol (vitamin D3) 1,000 unit PO DAILY 10/16/18 12/30/18 Unknown [Vitamin D3] coenzyme Q10 100 mg PO DAILY 10/16/18 12/30/18 Unknown cyanocobalamin (vitamin B-12) 1,000 mcg PO DAILY 10/16/18 12/30/18 Unknown [Vitamin B-12] duloxetine 30 mg PO DAILY 10/16/18 12/30/18 Unknown econazole 1 applic TOPICAL UD 10/16/18 12/30/18 Unknown finasteride 5 mg PO DAILY 10/16/18 12/30/18 Unknown fluticasone propionate [Flonase 2 spray INTRANASAL DAILY 10/16/18 12/30/18 Unknown Allergy Relief] metformin 850 mg PO BID 10/16/18 12/30/18 Unknown nystatin 1 applic TOPICAL BID 10/16/18 12/30/18 Unknown omega 4-pxb-mss-fish oil [Fish Oil] 1 cap PO BID 10/16/18 12/30/18 Unknown tamsulosin 0.4 mg PO DAILY 10/16/18 12/30/18 Unknown triamterene-hydrochlorothiazid 1 cap PO DAILY 10/16/18 12/30/18 Unknown acetaminophen [Tylenol] 650 mg PO Q6H PRN 12/30/18 12/30/18 Unknown amiodarone 100 mg PO DAILY 12/30/18 12/30/18 Unknown atorvastatin 20 mg PO DAILY 12/30/18 12/30/18 Unknown bisacodyl [Dulcolax (bisacodyl)] 10 mg PO HS 12/30/18 12/30/18 Unknown capsaicin-menthol [Capzasin] 1 ea TOPICAL DAILY PRN 12/30/18 12/30/18 Unknown fexofenadine 180 mg PO DAILY PRN 12/30/18 12/30/18 Unknown losartan 25 mg PO DAILY 12/30/18 12/30/18 Unknown magnesium hydroxide [Milk of 30 ml PO DAILY PRN 12/30/18 12/30/18 Unknown Magnesia] menthol [Biofreeze (menthol)] 1 applic TOPICAL BID PRN 12/30/18 12/30/18 Unknown metoprolol succinate 100 mg PO DAILY 12/30/18 12/30/18 Unknown multivitamin 1 tab PO DAILY 12/30/18 12/30/18 Unknown phenylalanine [L-Phenylalanine] 750 mg PO DAILY 12/30/18 12/30/18 Unknown phenyleph-min oil-petrolatum 1 applic MD AMHS PRN 12/30/18 12/30/18 Unknown [Preparation H] sodium phosphates [Enema] 118 ml MD HS PRN 12/30/18 12/30/18 Unknown tramadol 50 mg PO Q6H PRN 12/30/18 12/30/18 Unknown warfarin [Coumadin] 2 mg PO DAILY 12/30/18 12/30/18 Unknown zinc oxide-cod liver oil [Desitin] 40 % TOPICAL DAILY 12/30/18 12/30/18 Unknown Past Medical History Medical History HTN (hypertension) HLD (hyperlipidemia) Pre-diabetes Morbid obesity ARVIND on CPAP PAF (paroxysmal atrial fibrillation) GERD (gastroesophageal reflux disease) Anxiety BPH (benign prostatic hyperplasia) Cellulitis RT FOOT Charcot's joint of right foot Degenerative disc disease History of diverticulitis Neuropathy Osteoarthritis Transient ischemic attack (TIA) 2007 (NO PROBLEMS CURRENTLY/TAKING COUMADIN) Past Family History Family History Father CHF (congestive heart failure) Alzheimer disease Mother CHF (congestive heart failure) Stroke Family hx colonic polyps Grandfather (Maternal) Family history of diabetes mellitus Past Surgical History Surgical History History of colonoscopy History of myringotomy RT EAR History of tonsillectomy [place] teeth removed Social History Smoking Status: Former smoker Do You Dip or Chew Tobacco: No Smoking End Date: 1968 Hx Alcohol Use: No Hx Substance Use: No substance use type: does not use Testing Laboratory Results 12/07/18 labs K+ 4.2 creat 1.1 12/27 INR 3.0 - coumadin adjusted slightly Laboratory Tests 10/19/18 07:30 Hgb 13.5 L Hct 40.7 L Plt Count 319 Electrocardiogram Date: 01/05/19 Findings: + SB @ (47) and + MN (old anterior infarct, inferior infarct age undetermined, no change from prior in May 2017) Chest X-Ray Date: 01/02/19 Findings: + NAD Echocardiogram Date: 01/05/19 EF: 55% Other Findings: + LVH (mild) Valvular Disease: + no significant valvular disease Stress Test Date: 07/11/14 Type: DSE Findings: + ischemia (possible small areas reversible ischemia apical lateral, and inferolateral) Patient seen by cardiology on 01/05/19 to evaluate prior to surgery - echo repeated as above, felt to be stable to proceed, can be off coumadin without bridging for procedure
--- NOTE | 2019-01-19 19:40 | History & Physical Report ---
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 All potential risks, benefits, complications, alternatives, and rehab have been discussed with the patient and he wishes to proceed. Plan for possible rehab stay upon d/c. (2) Right calcaneal fracture: (3) Swelling of right foot: (4) Morbid obesity: History of Present Illness Chief Complaint: right foot pain and swelling Primary Care Provider: Kyler Choudhury MD This is a patient who started having severe pain and swelling in his right hindfoot and lower leg in the spring of this year. He had undergone many imaging tests which noted a calcaneus fx and Charcot arthropathy of the hindfoot. He had 2 opinions of the lower leg and a BKA was recommended. The patient is now being set up for for a right BKA. Allergies Allergy/AdvReac Type Severity Reaction Status Date / Time Penicillins Allergy Severe edema of Verified 12/30/18 11:55 airway cephalexin Allergy Mild Unknown Verified 12/30/18 11:55 codeine Allergy Mild Unknown Verified 12/30/18 11:55 furosemide [From Lasix] Allergy Mild Unknown Verified 12/30/18 11:55 gabapentin Allergy Mild Unknown Verified 12/30/18 11:55 Home Medications Home Medications Medication Instructions Recorded Confirmed Type Lactobacillus acidophilus 100 mg PO DAILY 10/16/18 12/30/18 History [Acidophilus] Metamucil 1 tbsp PO DAILY PRN 10/16/18 12/30/18 History PreviDent 5000 Sensitive 1 applic DENTAL BID 10/16/18 12/30/18 History arginine HCl (L-arginine) 1,000 mg PO DAILY 10/16/18 12/30/18 History cholecalciferol (vitamin D3) 1,000 unit PO DAILY 10/16/18 12/30/18 History [Vitamin D3] coenzyme Q10 100 mg PO DAILY 10/16/18 12/30/18 History cyanocobalamin (vitamin B-12) 1,000 mcg PO DAILY 10/16/18 12/30/18 History [Vitamin B-12] duloxetine 30 mg PO DAILY 10/16/18 12/30/18 History econazole 1 applic TOPICAL UD 10/16/18 12/30/18 History finasteride 5 mg PO DAILY 10/16/18 12/30/18 History fluticasone propionate [Flonase 2 spray INTRANASAL DAILY 10/16/18 12/30/18 History Allergy Relief] metformin 850 mg PO BID 10/16/18 12/30/18 History nystatin 1 applic TOPICAL BID 10/16/18 12/30/18 History omega 5-otv-vrb-fish oil [Fish Oil] 1 cap PO BID 10/16/18 12/30/18 History tamsulosin 0.4 mg PO DAILY 10/16/18 12/30/18 History triamterene-hydrochlorothiazid 1 cap PO DAILY 10/16/18 12/30/18 History acetaminophen [Tylenol] 650 mg PO Q6H PRN 12/30/18 12/30/18 History amiodarone 100 mg PO DAILY 12/30/18 12/30/18 History atorvastatin 20 mg PO DAILY 12/30/18 12/30/18 History bisacodyl [Dulcolax (bisacodyl)] 10 mg PO HS 12/30/18 12/30/18 History capsaicin-menthol [Capzasin] 1 ea TOPICAL DAILY PRN 12/30/18 12/30/18 History fexofenadine 180 mg PO DAILY PRN 12/30/18 12/30/18 History losartan 25 mg PO DAILY 12/30/18 12/30/18 History magnesium hydroxide [Milk of 30 ml PO DAILY PRN 12/30/18 12/30/18 History Magnesia] menthol [Biofreeze (menthol)] 1 applic TOPICAL BID PRN 12/30/18 12/30/18 History metoprolol succinate 100 mg PO DAILY 12/30/18 12/30/18 History multivitamin 1 tab PO DAILY 12/30/18 12/30/18 History phenylalanine [L-Phenylalanine] 750 mg PO DAILY 12/30/18 12/30/18 History phenyleph-min oil-petrolatum 1 applic [place] AMHS PRN 12/30/18 12/30/18 History [Preparation H] sodium phosphates [Enema] 118 ml [place] HS PRN 12/30/18 12/30/18 History tramadol 50 mg PO Q6H PRN 12/30/18 12/30/18 History warfarin [Coumadin] 2 mg PO DAILY 12/30/18 12/30/18 History zinc oxide-cod liver oil [Desitin] 40 % TOPICAL DAILY 12/30/18 12/30/18 History Past Med/Surg History Medical History HTN (hypertension) HLD (hyperlipidemia) Pre-diabetes Morbid obesity ARVIND on CPAP PAF (paroxysmal atrial fibrillation) GERD (gastroesophageal reflux disease) Anxiety BPH (benign prostatic hyperplasia) Cellulitis RT FOOT Charcot's joint of right foot Degenerative disc disease History of diverticulitis Neuropathy Osteoarthritis Transient ischemic attack (TIA) 2007 (NO PROBLEMS CURRENTLY/TAKING COUMADIN) Surgical History History of colonoscopy History of myringotomy RT EAR History of tonsillectomy [place] teeth removed Family History Father CHF (congestive heart failure) Alzheimer disease Mother CHF (congestive heart failure) Stroke Family hx colonic polyps Grandfather (Maternal) Family history of diabetes mellitus Social History Preferred Language: Bengali Communication Ability: Effective 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 Beliefs That Will Affect Care: None marital status: Current Living Situation: Assisted Current Living Situation Comment: [facility]) Feels Safe at Home: Yes Smoking Status: Former smoker Second Hand Exposure: No ; Hx Alcohol Use: No Hx Substance Use: No Physical Exam Constitutional: well developed, well nourished and + morbidly obese; no acute distress ENMT: external ear and nose normal, oropharynx normal Neck: trachea midline, no thyromegaly Respiratory: normal respiratory effort, lungs clear to auscultation Cardiovascular: Rate/Rhythm: regular rate and regular rhythm Gastrointestinal (Abdomen): normal bowel sounds, soft, nontender, no hepatosplenomegaly Musculoskeletal: Right ankle: Severe swelling right LE. Tender throughout the entire hindfoot. Limited ROM. Antalgic right gait. Skin: no rashes, warm and dry Neurologic: normal touch/pain/proprioception Psychiatric: A+Ox3, euthymic affect Lymphatic: no cervical or axillary lymphadenopathy
[~2019-01-20 08:18] MED LIST: CEFAZOLIN 3000MG 72.5 ML IV SCH; LR 15ML/HR IV SCH
[2019-01-20 09:05] LABS: INR 1.3 (0.9-1.1); Partial Thromboplastin Ratio 1.2; Partial Thromboplastin Time 31.3 Seconds (21.0-31.0); Prothrombin Time 12.8 Seconds (9.0-12.0)
[2019-01-20] MEDS ORDERED: ePHEDrine sulfate 50 MG/ML AMP ONE (09:35)
[2019-01-20] MEDS ORDERED: ONDANSETRON INJ 2 MG/ML 2 ML VIAL ONE (09:35)
[2019-01-20] MEDS ORDERED: PROPOFOL IV EMULSION 10 MG/ML 20 ML VIAL IV ONE ×2 (09:35→12:07)
[2019-01-20] MEDS ORDERED: DEXAMETHASONE SOD INJ 4 MG/ML VIAL ONE (09:35)
[2019-01-20] MEDS ORDERED: NEOSTIGMINE METHYLSULFATE 5 MG/5 ML SYR ONE (09:35)
[2019-01-20] MEDS ORDERED: GLYCOPYRROLATE 0.2 MG/ML VIAL ONE (09:35)
[2019-01-20] MEDS ORDERED: LIDOCAINE HCL 2% 2 ML VIAL/AMP(20MG/ML) INFIL ONE (09:35)
[2019-01-20] MEDS ORDERED: PHENYLEPHRINE HCL 10 MG/ML VIAL ONE (09:35)
[2019-01-20] MEDS ORDERED: SUCCINYLCHOLINE CHLORIDE 20 MG/ML 10 ML VIAL ONE (09:35)
[2019-01-20] MEDS ORDERED: fentaNYL citrate 100 MCG/2 ML VIAL ONE (09:36)
[2019-01-20] MEDS ORDERED: MIDAZOLAM HCL 1 MG/ML 2ML VIAL ONE ×2 (09:36→10:09)
[2019-01-20] MEDS ORDERED: SODIUM CHLORIDE 0.9% INJ 10 ML VIAL ONE (09:41)
[2019-01-20] MEDS ORDERED: ROPIVACAINE 0.5% 5 MG/ML 30 ML VIAL ONE (09:41)
--- NOTE | 2019-01-20 10:04 | History & Physical Bridge Note ---
Date of Service January 20, 2019 History & Physical Bridge Note I have examined the patient, reviewed the History & Physical and in the interval since the performance of the History & Physical I have noted the following changes of clinical significance: no changes noted
[2019-01-20] MEDS ORDERED: CLINDAMYCIN 900 MG in DEXTROSE 5% 50 ML IV SCH (10:15)
[2019-01-20] MEDS ORDERED: BACITRACIN INJ 50,000 UNIT VIAL ONE (10:33)
[2019-01-20] MEDS ORDERED: ROCURONIUM BROMIDE 10 MG/ML 5 ML VIAL ONE (12:07)
[2019-01-20] MEDS ORDERED: ATROPINE SO4 1 MG/ML 1ML VIAL ONE (12:07)
[2019-01-20] MEDS ORDERED: ePHEDrine sulfate 50 MG/ML SYR ONE (12:07)
--- NOTE | 2019-01-20 13:07 | Post Operative Brief Note ---
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
[2019-01-20] MEDS ORDERED: ATROPINE SULFATE 0.1 MG/ML 10ML SYR IV PRN (13:32)
[2019-01-20] MEDS ORDERED: KETOROLAC 30 MG/ML VIAL IV PRN (13:32)
[2019-01-20] MEDS ORDERED: HYDROmorphone INJ 1 MG/ML SYRINGE ONE (13:32)
[2019-01-20] MEDS ORDERED: ONDANSETRON INJ 2 MG/ML 2 ML VIAL IV PRN ×2 (13:32→14:43)
[2019-01-20] MEDS: HYDROmorphone INJ 1 MG/ML SYRINGE IV PRN ×3 (13:33→13:43)
--- NOTE | 2019-01-20 14:37 | Anesthesiology Progress Note ---
Date of Service January 20, 2019 Anesthesia Post Procedure Vital Signs Vital Signs: Temp Pulse Pulse Resp BP Pulse Ox 01/20/19 14:30 36.3 C L 65 18 110/57 L 97 01/20/19 14:20 72 16 102/50 L 97 01/20/19 14:10 36.3 C L 74 20 102/50 L 94 01/20/19 14:00 69 16 92/58 L 97 01/20/19 13:50 60 26 H 82/56 L 96 01/20/19 13:40 66 18 97/65 L 95 01/20/19 13:30 69 21 110/61 96 01/20/19 13:20 36.4 C L 85 22 116/90 99 01/20/19 09:01 36.6 C 68 20 145/68 H 95 Pain Intensity Back: Pain Intensity: 4 Right Leg: Pain Intensity: 6 Transfer of Care Handoff Completed per policy Notes Mental Status: alert / awake / arousable Patient Amnestic to Procedure: Yes Nausea / Vomiting: adequately controlled Pain: adequately controlled Airway Patency, RR, SpO2: stable & adequate BP & HR: stable & adequate Hydration State: stable & adequate Anesthetic Complications: no major complications apparent
[2019-01-20] MEDS ORDERED: TRAMADOL HCL 50 MG TABLET PO PRN (14:43)
[2019-01-20] MEDS ORDERED: NON-FORMULARY MEDICATION (Menthol [Biofreeze (Menthol)] 1 APPLN) TOP PRN (14:43)
[2019-01-20] MEDS ORDERED: METOCLOPRAMIDE HCL INJ 5 MG/ML 2 ML VIAL IV PRN (14:43)
[2019-01-20] MEDS ORDERED: ECONAZOLE NITRATE 1% CRM 15 GM TUBE TOP PRN (14:43)
[2019-01-20] MEDS ORDERED: ALUMINUM/MAGNESIUM SUSP 30 ML UDC PO PRN (14:43)
[2019-01-20] MEDS ORDERED: [UNRECOGNIZED DRUG - OTHER] TOP PRN (14:43)
[2019-01-20] MEDS ORDERED: FEXOFENADINE HCL 180 MG TAB PO PRN (14:43)
[2019-01-20] MEDS ORDERED: HYDROmorphone INJ 1 MG/ML SYRINGE IV PRN (14:43)
[2019-01-20] MEDS ORDERED: MAGNESIUM HYDROXIDE SUSP 30 ML UDC PO PRN ×2 (14:43)
[2019-01-20] MEDS ORDERED: SOD PHOSPHATE/SOD BIPHOSPHATE ENEMA 132 ML BTL PR PRN (14:43)
[2019-01-20] MEDS ORDERED: bisacodyL 10 MG SUPP PR PRN (14:43)
[2019-01-20] MEDS ORDERED: NALOXONE HCL 0.4 MG/1 ML VIAL/CARP IV PRN (14:43)
[2019-01-20] MEDS ORDERED: OXYCODONE HCL IR 5 MG TAB (IMMEDIATE RELEASE) PO PRN (14:43)
[2019-01-20] MEDS ORDERED: WITCH HAZEL/GLYCERIN 40 PADS/JAR (TUCKS) EXT PRN (15:18)
[2019-01-20] MEDS ORDERED: GLUCAGON FOR INJ 1 MG VIAL SQ PRN (15:46)
[2019-01-20] MEDS ORDERED: CARBOHYDRATES FOR HYPOGLYCEMIA PO PRN (15:46)
[2019-01-20] MEDS ORDERED: GLUCOSE 10 TABS/TUBE PO PRN (15:46)
[2019-01-20] MEDS ORDERED: DEXTROSE 50% 50 ML SYRINGE IV PRN (15:46)
[2019-01-20] MEDS ORDERED: GLUCOSE 40% GEL 15 GM TUBE PO PRN (15:46)
--- NOTE | 2019-01-20 15:58 | Consultation ---
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 Winston CELESTE 20ml pain/wound management per ortho activity and therapy as directed by ortho incentive spirometry bowel regimen per ortho monitor H/H (2) PAF (paroxysmal atrial fibrillation): rate and rhythm controlled on metoprolol warfarin resumed per ortho monitor INR, goal 2-3 (3) HTN (hypertension): blood pressure stable continue metoprolol, losartan hold triamterene/hctz until volume status re-evaluated in a.m. (4) Pre-diabetes: A1C 6.3 Hold metformin Lantus/novolog per protocol pt received dexamethasone pre-op so expect post op hyperglycemia A1C in a.m. (5) HLD (hyperlipidemia): continue statin (6) ARVIND on CPAP: Cpap at HS (7) Morbid obesity: BMI 56 encourage lifestyle modifications (8) DVT prophylaxis: Warfarin resumed per ortho monitor PT/INR Disposition: per ortho Follow up: PCP Dr. Choudhury upon discharge Patient was seen and examined in collaboration with Dr. Harkins, please see addenum Supervising Physician Co-Signing Physician Notes HISTORY: Record reviewed. Patient interviewed and examined. Care coordinated with Chen Ambrose PA-C. Please refer to her documentation for patient's history. Briefly, 73-year-old male with history of paroxysmal atrial fibrillation, hypertension, sleep apnea on CPAP, prediabetes, and other problems. Right BKA performed earlier today. Doing well postoperatively. No chest pain, cough, shortness of breath, nausea, vomiting. He is having some phantom discomfort of the right lower extremity. EXAM: General- no distress Lungs- clear to auscultation; no respiratory distress Cardiovascular- RRR with occasional ectopy; no murmur appreciated; no gallop appreciated; no JVD; no pretibial edema Abdomen- + bowel sounds, soft, nontender Extremities- no cyanosis; right BKA bandaged Neuro- alert, oriented Skin- warm & dry DATA: INR this morning 1.3. Fingerstick blood sugar this afternoon at 1326 was 113. Other lab studies as noted. ASSESSMENT AND PLAN: Doing well postoperatively. History of paroxysmal atrial fibrillation. Continue metoprolol. Warfarin held for surgery and is being resumed postoperatively. History of hypertension. Continue metoprolol and losartan. History of sleep apnea. Continue CPAP. History of prediabetes. Hold metformin. Insulin coverage as needed. Please refer to EMIGDIO Ambrose's documentation for discussion of other issues. Thank you for this consultation. We will follow the patient with you during their hospital stay. My cell # is [phone]. You can reach a member of the [facility] Medicine Team 26/10 via pager @ [phone]. History of Present Illness Requesting Physician: Dr. Montero Reason for Consultation: Postop medical management Attending Physician: Davi Montero, History of Present Illness This is a 73-year-old male who has significant PMH of PAF on warfarin, HTN, HLD, prediabetes, ARVIND on CPAP, GERD, history of TIA, neuropathy, obesity who presents to [facility] for elective right BKA secondary to Charcot arthropathy and chronic right calcaneal fracture by Dr. Montero. Patient tolerated procedure well. Postoperatively he complains of pain with movement of right BKA and mild lightheadedness. He denies fever, chills, sweats, syncope, chest pain, sob, palpitations, n/v/d, abdominal pain. Does complain of abdominal hernia, which is not new. Denies pain at site of hernia. Has not urinated since procedure, but no difficulty urinating pre op. Denies dysuria, increased urg/freq with urination, melena, hematochezia. Is concerned taking pain medications, because of it constipating him. and son are at bedside. He has so far tolerated sips of water and has performed incentive spirometry. Allergies Allergy/AdvReac Type Severity Reaction Status Date / Time Penicillins Allergy Severe edema of Verified 01/20/19 09:04 airway gabapentin Allergy Mild Unknown Verified 01/20/19 09:04 cephalexin AdvReac Mild Nausea Verified 01/20/19 09:04 codeine AdvReac Mild Nausea Verified 01/20/19 09:04 furosemide [From Lasix] AdvReac Mild Weakness Verified 01/20/19 09:04 Home Medications Home Medications Medication Instructions Recorded Confirmed Type Lactobacillus acidophilus 100 mg PO DAILY 10/16/18 01/20/19 History [Acidophilus] Metamucil 1 tbsp PO DAILY PRN 10/16/18 01/20/19 History PreviDent 5000 Sensitive 1 applic DENTAL BID 10/16/18 01/20/19 History arginine HCl (L-arginine) 1,000 mg PO DAILY 10/16/18 01/20/19 History cholecalciferol (vitamin D3) 1,000 unit PO DAILY 10/16/18 01/20/19 History [Vitamin D3] coenzyme Q10 100 mg PO DAILY 10/16/18 01/20/19 History cyanocobalamin (vitamin B-12) 1,000 mcg PO DAILY 10/16/18 01/20/19 History [Vitamin B-12] duloxetine 30 mg PO DAILY 10/16/18 01/20/19 History econazole 1 applic TOPICAL UD 10/16/18 01/20/19 History finasteride 5 mg PO DAILY 10/16/18 01/20/19 History fluticasone propionate [Flonase 2 spray INTRANASAL DAILY 10/16/18 01/20/19 History Allergy Relief] metformin 850 mg PO BID 10/16/18 01/20/19 History nystatin 1 applic TOPICAL BID 10/16/18 01/20/19 History omega 6-hfs-tjs-fish oil [Fish Oil] 1 cap PO BID 10/16/18 01/20/19 History tamsulosin 0.4 mg PO DAILY 10/16/18 01/20/19 History triamterene-hydrochlorothiazid 1 cap PO DAILY 10/16/18 01/20/19 History acetaminophen [Tylenol] 650 mg PO Q6H PRN 12/30/18 01/20/19 History amiodarone 100 mg PO DAILY 12/30/18 01/20/19 History atorvastatin 20 mg PO DAILY 12/30/18 01/20/19 History capsaicin-menthol [Capzasin] 1 ea TOPICAL DAILY PRN 12/30/18 01/20/19 History fexofenadine 180 mg PO DAILY PRN 12/30/18 01/20/19 History losartan 25 mg PO DAILY 12/30/18 01/20/19 History magnesium hydroxide [Milk of 30 ml PO DAILY PRN 12/30/18 01/20/19 History Magnesia] menthol [Biofreeze (menthol)] 1 applic TOPICAL BID PRN 12/30/18 01/20/19 History metoprolol succinate 100 mg PO BID 12/30/18 01/20/19 History multivitamin 1 tab PO DAILY 12/30/18 01/20/19 History phenylalanine [L-Phenylalanine] 750 mg PO DAILY 12/30/18 01/20/19 History phenyleph-min oil-petrolatum 1 applic [place] AMHS PRN 12/30/18 01/20/19 History [Preparation H] sodium phosphates [Enema] 118 ml [place] HS PRN 12/30/18 01/20/19 History tramadol 50 mg PO Q6H PRN 12/30/18 01/20/19 History warfarin [Coumadin] 2 mg PO DAILY 12/30/18 01/20/19 History zinc oxide-cod liver oil [Desitin] 40 % TOPICAL DAILY 12/30/18 01/20/19 History Patient History Medical History HTN (hypertension) HLD (hyperlipidemia) Pre-diabetes Morbid obesity ARVIND on CPAP PAF (paroxysmal atrial fibrillation) GERD (gastroesophageal reflux disease) Anxiety BPH (benign prostatic hyperplasia) Cellulitis RT FOOT Charcot's joint of right foot Degenerative disc disease History of diverticulitis Neuropathy Osteoarthritis Transient ischemic attack (TIA) 2007 (NO PROBLEMS CURRENTLY/TAKING COUMADIN) Surgical History History of colonoscopy History of myringotomy RT EAR History of tonsillectomy [place] teeth removed Family History Father CHF (congestive heart failure) Alzheimer disease Mother CHF (congestive heart failure) Stroke Family hx colonic polyps Grandfather (Maternal) Family history of diabetes mellitus Social History Preferred Language: Slovak Communication Ability: Effective Business Mail 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 Required: No Beliefs That Will Affect Care: None marital status: Current Living Situation: Group Home Current Living Situation Comment: [facility] ([facility]) Other Information That Helps Us Care for You: No Feels Safe at Home: Yes Safety Concerns: Feels Safe At This Time Smoking Status: Former smoker Do You Dip or Chew Tobacco: No ; Smoking End Dain e: 1969 ; Second Hand Exposure: No ; Tobacco Cessation Education Requested by Patient: No Hx Alcohol Use: No Hx Substance Use: No Review of Systems Review of Systems: All systems reviewed & are unremarkable except as noted in HPI & below Physical Exam Physical Exam: Constitutional: Morbidly obese male, blunted affect, vitals as above, NAD, sitting up in bed, conversing easily Head: Normocephalic, Atraumatic Eyes: PERRL, conjunctivae normal, anicteric sclerae ENMT: external ear and nose normal, oropharynx normal Neck: trachea midline, no thyromegaly normal visual inspection, dry mucous membranes Respiratory: normal respiratory effort, lungs clear to auscultation, diminished at bases due to poor effort, distant breath sounds due to body habitus, no wheeze, rales, rhonchi. Normal insp/exp effort, no accessory muscle use Cardiovascular: RRR, no murmur, no edema Vessels: no JVD or carotid bruit Chest: normal inspection of chest Abdomen: +reducible umbilical hernia, normal bowel sounds, soft, nontender, no hepatosplenomegaly Musculoskeletal: no cyanosis or clubbing, R BKA, dressing CDI with hemovac in place Skin: no rashes, warm and dry normal turgor Neurologic: PERRL, EOMI, accommodation nl, no face palsy, no dysarthria CN's II-XI intact bilaterally and moves all extremities Psychiatric: A+Ox3, blunted affect Lymphatic: no cervical or axillary lymphadenopathy : deferred Results & Data Vital Signs (Past 12 Hours) Vital Signs Temp Pulse Pulse Pulse Resp BP Pulse Ox 01/20/19 15:49 66 18 108/68 99 01/20/19 15:05 36.4 C L 70 18 113/70 98 01/20/19 14:45 36.4 C L 64 18 101/64 95 01/20/19 14:30 36.3 C L 65 18 110/57 L 97 01/20/19 14:20 72 16 102/50 L 97 01/20/19 14:10 36.3 C L 74 20 102/50 L 94 01/20/19 14:00 69 16 92/58 L 97 01/20/19 13:50 60 26 H 82/56 L 96 01/20/19 13:40 66 18 97/65 L 95 01/20/19 13:30 69 21 110/61 96 01/20/19 13:20 36.4 C L 85 22 116/90 99 01/20/19 09:01 36.6 C 68 20 145/68 H 95
[2019-01-20] MEDS: SODIUM CHLORIDE 0.9% 1000ML 1,000 ML IV SCH (16:00)
[2019-01-20] MEDS: ACETAMINOPHEN 500 MG TAB PO SCH ×2 (16:01→21:53)
[2019-01-20] MEDS: WARFARIN SOD 2 MG TAB PO SCH (16:02)
[2019-01-20] MEDS: KETOROLAC TROMETHAMINE 15 MG/ML VIAL IV SCH ×2 (16:07→21:54)
[2019-01-20] MEDS ORDERED: Nursing to Pharmacy Communication ONE ×3 (16:13→21:37)
--- NOTE | 2019-01-20 18:23 | Operative Report ---
DATE OF OPERATION: 01/20/2019 PREOPERATIVE DIAGNOSES: 1. Right foot osteomyelitis. 2. Charcot foot. 3. Peripheral vascular disease. 4. Calcaneus fracture. 5. Diabetes mellitus. POSTOPERATIVE DIAGNOSES: 1. Right foot osteomyelitis. 2. Charcot foot. 3. Peripheral vascular disease. 4. Calcaneus fracture. 5. Diabetes mellitus. PROCEDURE: Right below knee amputation. SURGEON: Davi Montero DO. TALKBACK HOST: Jose J Cheng PA-C, who was present for patient positioning, sterile prep and drape, management of retractors and instruments. He was present through the critical portions of the case including wound closure, application of sterile dressing and transport of the patient to recovery. ANESTHESIA: General regional. SPECIMENS: Right lower leg below the knee. DRAINS: Hemovac x2. COMPLICATIONS: None. BLOOD LOSS: 20 mL. PERTINENT HISTORY: This is a 73-year-old gentleman who had severe diabetes mellitus and peripheral vascular disease in sequelae related to the above. The patient developed a Charcot foot on the right, subsequent complete loss of bony arch and had ulcer which formed, developed osteomyelitis in the foot. He was seen and treated multiple times, multiple weeks with IV antibiotics, oral antibiotics, observation, rest, anti-inflammatories, nonweightbearing, use of cast, splint, brace and shoe wear modifications. He failed all measures with ulceration progressing to worsening osteomyelitis in the right foot documented by radiographs and MRI. He has had multiple opinions regarding the extremity and all practitioners essentially have been recommending amputation of the right lower extremity for the last several months. The patient has come to terms with his current condition and has opted for right below knee amputation as indicated. All potential risks, benefits, complications, alternatives, rehab, potential for incomplete relief of symptoms, need for further surgery, DVT, PE, , persistent pain, swelling, scarring, weakness, neurovascular injury, wound complications, need for higher revision amputation were discussed with the patient. The patient decided to proceed with the procedure as indicated. DESCRIPTION OF PROCEDURE: The patient was taken to operative suite, placed supine on the Operating Room table. I reviewed consent and identification of proper operative site. The patient had previously received regional anesthetic in the preop holding area. Tourniquet was placed high on the right thigh over cast padding. Surgical timeout was performed and the patient was then anesthetized, LMA was placed. Tourniquet was applied high on the right lower extremity over cast padding. Right lower extremity was then sterilely prepped in usual fashion, elevated and partially exsanguinated from the mid tibia proximally using an Esmarch bandage. Tourniquet inflated to 350 mmHg. A 10 blade scalpel was used to make an anterior incision approximately 10.5 cm distal to the tibial tubercle anteriorly and then extending medially and laterally distally with a longer posterior flap of skin. Anterior incision was then deepened through the fascia in anterior compartment. Care was taken to identify the neurovascular bundles and then these were tied with 2-0 silks. Next, after the tibia was then carefully dissected circumferentially, blunt Hohmann retractors were placed around the tibia and the sagittal saw was then used to resect the distal tibia approximately 11 cm distal to the tibial tubercle. Next, this was bevelled with a saw and smoothed and contoured with a rasp. Next, careful dissection was performed with Metzenbaum scissors to the level of the fibula and approximately 1 cm proximal to the tibial resection, the fibular resection was performed with angled cut using a sagittal saw. Next, the posterior compartment was sharply released from the posterior aspect of the fibula and the tibia distally and then the skin flap was then completed posteriorly with 10 blade scalpel. Next, the bone residual limb of the right lower extremity was then passed off for pathological specimen. Next, the posterior flap was then shaped and contoured using a 10 blade scalpel incising portions of the deep posterior and superficial posterior compartments. The fascia and Achilles were left in the same length of the skin flap and the tibial nerve artery and vein were then identified and tied off with a 2-0 silk, which was double thickness. The small bleeders were cauterized using electrocautery. Next, copious amounts of sterile saline with bacitracin was used to cleanse the residual limb and after all bleeders were cauterized, the Achilles tendon and fascia was then closed over the anterior aspect of the distal tibia. A #1 Vicryl closure was used to close the fascia noted circumferentially and two 10-[place] Hemovac drains were placed deep exiting both superomedial and lateral in the skin below the knee. Next lavage was then performed in the superficial layer. The dermis was closed using buried interrupted 2-0 Vicryl, skin was closed using multiple 3-0 nylon sutures. A sterile compressive dressing and an Maverick wrap was applied. The tourniquet was released. The patient was awakened and taken to recovery in stable condition. I attest to the content of the Intraoperative Record and any orders documented therein. Any exceptions are noted below. MTDD
[2019-01-20] MEDS: CLINDAMYCIN 900 MG in DEXTROSE 5% 50 ML IV SCH (19:01)
[2019-01-20] MEDS: INSULIN ASPART 100 UNITS/ML 3 ML PEN SC SCH ×2 (19:02→21:39)
[2019-01-20] MEDS ORDERED: METOPROLOL SUCC 50MG EXT REL TAB PO SCH (21:00)
[2019-01-20] MEDS ORDERED: DOCUSATE SODIUM 100 MG CAP PO SCH (21:00)
[2019-01-20] MEDS ORDERED: SENNA 8.6 MG TAB PO SCH (21:00)
[2019-01-20] MEDS ORDERED: [UNRECOGNIZED DRUG - OTHER] DT SCH (21:00)
[2019-01-20] MEDS ORDERED: POTASSIUM NITRATE DT SCH (21:00)
[2019-01-20] MEDS ORDERED: SODIUM FLUORIDE DT SCH (21:00)
[2019-01-20] MEDS: NYSTATIN OINT 15 GM TUBE EXT SCH (21:30)
[2019-01-20] MEDS ORDERED: INFLUENZA ADMINISTRATION CHARGE ONE (21:30)
[2019-01-20] MEDS ORDERED: INFLUENZA VACCINE HIGH DOSE 65+ 0.5 ML SYR IM ONE (21:30)
[2019-01-20] MEDS: OMEGA-3 (PURIFIED FISH OIL) 1 GM CAP PO SCH (21:32)
[2019-01-20] MEDS: TAMSULOSIN HCL 0.4 MG CAP PO SCH (21:33)
[2019-01-20] MEDS: AMIODARONE 200 MG TAB PO SCH (21:34)
[2019-01-20] MEDS: INSULIN GLARGINE SOLOSTAR 100 UNITS/ML 3 ML PEN SC SCH (21:39)
[2019-01-20] MEDS ORDERED: PSYLLIUM 58.6% POWDER PACKET PO ONE (21:49)
[2019-01-20] MEDS: DULOXETINE HCL 30 MG CAP PO SCH (22:30)
[2019-01-21] MEDS: SODIUM CHLORIDE 0.9% 1000ML 1,000 ML IV SCH (02:26)
[2019-01-21] MEDS: CLINDAMYCIN 900 MG in DEXTROSE 5% 50 ML IV SCH (03:46)
[2019-01-21] MEDS: KETOROLAC TROMETHAMINE 15 MG/ML VIAL IV SCH ×2 (03:46→10:30)
[2019-01-21] MEDS: ACETAMINOPHEN 500 MG TAB PO SCH ×3 (05:15→22:32)
[2019-01-21 06:02] LABS: Hematocrit (blood only) 37.2 % (42-52); Hemoglobin 12.3 g/dL (14.0-18.0); Mean Corpuscular Hemoglobin 29.4 pg (25-34); Mean Corpuscular Hgb Conc 33.1 g/dL (32-36); Mean Corpuscular Volume 88.8 fL (80-100); Mean Platelet Volume 10.5 fL (7.4-10.4); Platelet Count 220 K/uL (130-400); RDW Coefficient of Variation 15.1 % (11.5-14.5); RDW Standard Deviation 48.7 fL (36.4-46.3); Red Blood Count 4.19 M/uL (4.7-6.1); White Blood Count 9.61 K/uL (4.8-10.8)
[2019-01-21 06:29] LABS: Calcium 8.9 mg/dl (8.5-10.1); Est GFR (African American) 64.5; Est GFR (Non-African American) 55.7; Potassium 4.4 mmol/L (3.5-5.1)
[2019-01-21 07:39] LABS: Estimated Average Glucose 126 mg/dl
[2019-01-21] MEDS ORDERED: METFORMIN HCL 850 MG TAB PO SCH (08:00)
[2019-01-21] MEDS ORDERED: Nursing to Pharmacy Communication ONE (08:48)
[2019-01-21] MEDS ORDERED: ARGININE HCL 1000 MG PO SCH (09:00)
[2019-01-21] MEDS ORDERED: DULOXETINE HCL 30 MG CAP PO SCH (09:00)
[2019-01-21] MEDS ORDERED: AMIODARONE 200 MG TAB PO SCH (09:00)
[2019-01-21] MEDS ORDERED: METOPROLOL SUCC 50MG EXT REL TAB PO SCH (09:00)
[2019-01-21] MEDS ORDERED: MULTIVITAMIN TAB PO SCH ×2 (09:00)
[2019-01-21] MEDS ORDERED: TAMSULOSIN HCL 0.4 MG CAP PO SCH (09:00)
[2019-01-21] MEDS ORDERED: FINASTERIDE 5 MG TAB PO SCH (09:00)
[2019-01-21] MEDS ORDERED: LOSARTAN POTASSIUM 25 MG TAB PO SCH (09:00)
[2019-01-21] MEDS ORDERED: NON-FORMULARY MEDICATION (Coenzyme Q10 100 MG) PO SCH (09:00)
[2019-01-21] MEDS ORDERED: [UNRECOGNIZED DRUG - OTHER] PO SCH (09:00)
[2019-01-21] MEDS ORDERED: ATORVASTATIN 20 MG TAB PO SCH (09:00)
[2019-01-21] MEDS: CHOLECALCIFEROL 1,000 UNITS TAB PO SCH (09:15)
[2019-01-21] MEDS: CYANOCOBALAMIN 500 MCG TABLET (VITAMIN B-12) PO SCH (09:15)
[2019-01-21] MEDS: FLUTICASONE PROPIONATE NA SPR 16 GM BTL SCH (09:15)
[2019-01-21] MEDS: OMEGA-3 (PURIFIED FISH OIL) 1 GM CAP PO SCH ×2 (09:16→21:11)
[2019-01-21] MEDS: LACTOBACILLUS ACIDOPHILUS (FLORANEX) TAB PO SCH (09:16)
[2019-01-21] MEDS: METOPROLOL SUCC 50MG EXT REL TAB PO SCH ×2 (09:22→14:35)
[2019-01-21] MEDS: INSULIN ASPART 100 UNITS/ML 3 ML PEN SC SCH ×4 (09:25→20:17)
[2019-01-21] MEDS: INSULIN GLARGINE SOLOSTAR 100 UNITS/ML 3 ML PEN SC SCH ×2 (09:26→20:16)
[2019-01-21] MEDS: BUTT PASTE (ZINC OXIDE 16%) 171 APPLN/57 GM JAR EXT SCH (09:32)
[2019-01-21] MEDS: NYSTATIN OINT 15 GM TUBE EXT SCH (09:32)
[2019-01-21] MEDS ORDERED: NYSTATIN POWDER 15GM BTL EXT PRN (10:55)
--- NOTE | 2019-01-21 11:13 | Orthopedic Progress Note ---
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 PT and OT protocols to mobilize the patient. Plan for dressing change and Hemovac removal tomorrow. DVT prophylaxis and pain management as written DC planning-return to [facility] upon discharge Subjective Pt sitting up in bed. No complaints. Pain controlled. Hoping to start PT today. Physical Exam Physical Exam: Dressings are clean, dry, and intact. Hemovac drain present and functioning. Results & Data Vital Signs (Past 12 Hours) Vital Signs Temp Pulse Pulse Pulse Resp BP Pulse Ox 01/21/19 09:18 70 119/64 01/21/19 07:58 36.6 C 77 18 109/71 96 01/21/19 03:48 37.4 C 67 18 111/66 94 01/20/19 23:40 60 16 95 Laboratory Results Laboratory Results WBC 9.61 K/uL (4.8-10.8) 01/21/19 05:39 RBC 4.19 M/uL (4.7-6.1) L 01/21/19 05:39 Hgb 12.3 g/dL (14.0-18.0) L 01/21/19 05:39 Hct 37.2 % (42-52) L 01/21/19 05:39 MCV 88.8 fL (80-100) 01/21/19 05:39 MCH 29.4 pg (25-34) 01/21/19 05:39 MCHC 33.1 g/dL (32-36) 01/21/19 05:39 RDW Std Deviation 48.7 fL (36.4-46.3) H 01/21/19 05:39 RDW Coeff of Chapis 15.1 % (11.5-14.5) H 01/21/19 05:39 Plt Count 220 K/uL (130-400) 01/21/19 05:39 MPV 10.5 fL (7.4-10.4) H 01/21/19 05:39 PT 12.8 Seconds (9.0-12.0) H 01/20/19 08:45 INR 1.3 (0.9-1.1) H 01/20/19 08:45 APTT 31.3 Seconds (21.0-31.0) H 01/20/19 08:45 PTT Ratio 1.2 01/20/19 08:45 Sodium 130 mmol/L (136-145) L 01/21/19 05:39 Potassium 4.4 mmol/L (3.5-5.1) 01/21/19 05:39 Chloride 96 mmol/L (98-107) L 01/21/19 05:39 Carbon Dioxide 30 mmol/L (21-32) 01/21/19 05:39 Anion Gap 4.0 (3-11) 01/21/19 05:39 BUN 23 mg/dl (7-18) H 01/21/19 05:39 Creatinine 1.27 mg/dl (0.6-1.4) 01/21/19 05:39 Est Cr Clr Drug Dosing 89.0 ml/min 01/21/19 05:39 Est GFR ( Amer) 64.5 01/21/19 05:39 Est GFR (Non-Af Amer) 55.7 01/21/19 05:39 BUN/Creatinine Ratio 18.0 (10-20) 01/21/19 05:39 Glucose 101 mg/dl (70-99) H 01/21/19 05:39 POC Glucose 118 (70-99) H 01/21/19 08:19 Estimat Average Glucose 126 mg/dl 01/21/19 05:39 Hemoglobin A1c 6.0 % (4.5-5.6) H 01/21/19 05:39 Calcium 8.9 mg/dl (8.5-10.1) 01/21/19 05:39 Nasal Screen MRSA (PCR) Negative (Negative) 01/20/19 Unknown Blood Type O Positive 01/20/19 08:45 Antibody Screen NEGATIVE 01/20/19 08:45
[2019-01-21] MEDS: TRIAMTERENE/HCTZ 37.5/25MG CAP PO SCH (13:28)
--- NOTE | 2019-01-21 14:08 | Hospitalist Progress Note ---
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 Winston CELESTE 20ml Pain/wound management per ortho Activity and therapy as directed by ortho incentive spirometry Bowel regimen per ortho Denies any significant pain at the operation site Hemoglobin remains stable at 12.3 on 01/21 Difficulty in urination last night Required straight cath x1 with output of more than 70 mL's Wanted to have his triamterene/HCTZ restarted Advised adequate fluid intake Triamterene/HCTZ has been stopped (2) PAF (paroxysmal atrial fibrillation): rate and rhythm controlled on metoprolol warfarin resumed per ortho monitor INR, goal 2-3 INR was 1.3 on 01/20 INR will be checked tomorrow (3) HTN (hypertension): blood pressure stable continue metoprolol, losartan hold triamterene/hctz until volume status re-evaluated in a.m. Pressure remains stable Triamterene/HCTZ has been restarted (4) Pre-diabetes: A1C 6.3 Hold metformin Lantus/novolog per protocol pt received dexamethasone pre-op so expect post op hyperglycemia A1C in a.m. (5) HLD (hyperlipidemia): continue statin (6) ARVIND on CPAP: Cpap at HS (7) Morbid obesity: BMI 56 encourage lifestyle modifications (8) DVT prophylaxis: Warfarin resumed per ortho monitor PT/INR Disposition: per ortho Follow up: PCP Dr. Chouduhry upon discharge Subjective 01/21 The patient was seen and examined in medical floor He is status post right BKA POD #1 Denies any significant pain at the stump site Has a problem with urination last evening and required straight cath x1 Denies any other symptoms this morning Review of Systems Review of Systems: All systems reviewed and are unremarkable except as noted below Musculoskeletal: Status post right BKA. Minimal pain at the operation site Physical Exam Physical Exam: Lying in bed without any acute distress Constitutional: well developed, well nourished and + morbidly obese; no acute distress and not ill appearing Eyes: PERRL, conjunctivae normal, anicteric sclerae ENMT: external ear and nose normal, oropharynx normal Neck: trachea midline, no thyromegaly Respiratory: normal respiratory effort; no respiratory distress Auscultation: lungs clear to auscultation bilaterally (With diminished breath sounds) Cardiovascular: Rate/Rhythm: regular rate and regular rhythm Extremities: + edema (Trace edema bilaterally) Gastrointestinal (Abdomen): Inspection/Auscultation: abdomen normal to inspection and normal bowel sounds Percussion/Palpation: abdomen soft Skin: no rashes, warm and dry Neurologic: normal touch/pain/proprioception and moves all extremities; no focal motor deficits Psychiatric: A+Ox3, euthymic affect Lymphatic: no cervical or axillary lymphadenopathy Results & Data Vital Signs (Past 12 Hours) Vital Signs Temp Pulse Pulse Resp BP Pulse Ox 01/21/19 13:25 107/65 01/21/19 12:00 36.8 C 75 18 110/63 01/21/19 09:18 70 119/64 01/21/19 07:58 36.6 C 77 18 109/71 96 01/21/19 03:48 37.4 C 67 18 111/66 94 Laboratory Results Short CBC 01/21/19 Range/Units 05:39 WBC 9.61 (4.8-10.8) K/uL Hgb 12.3 L (14.0-18.0) g/dL Hct 37.2 L (42-52) % Plt Count 220 (130-400) K/uL BMP 01/21/19 05:39 Sodium 130 L Potassium 4.4 Chloride 96 L Carbon Dioxide 30 BUN 23 H Creatinine 1.27 Glucose 101 H Calcium 8.9 Medications Administered Current Inpatient Medications Acetaminophen (Tylenol) 1,000 mg PO Q8 [facility] Stop: 02/19/19 15:14 Last Admin: 01/21/19 05:15 Dose: 1,000 mg Documented by: Al Hydrox/Mg Hydrox/Simethicone (Maalox) 15 ml PO Q4H PRN PRN Reason: Heartburn Stop: 02/19/19 14:42 Amiodarone HCl (Cordarone) 100 mg PO DAILY@2200 [facility] Stop: 02/19/19 21:59 Last Admin: 01/20/19 21:34 Dose: 100 mg Documented by: Atorvastatin Calcium (Lipitor) 20 mg PO Q24H [facility] Stop: 02/20/19 15:59 Bisacodyl (Dulcolax) 10 mg [place] DAILY PRN PRN Reason: Constipation Stop: 02/19/19 14:42 Cyanocobalamin (Vitamin B-12) 1,000 mcg PO DAILY [facility] Stop: 02/20/19 08:59 Last Admin: 01/21/19 09:15 Dose: 1,000 mcg Documented by: Dextrose (Dextrose 50%) 25 - 50 ml IV UD PRN; Protocol PRN Reason: Hypoglycemia Protocol Stop: 02/19/19 15:45 Diphenhydramine HCl (Benadryl Capsule) 25 mg PO Q8H PRN PRN Reason: Itching Stop: 02/19/19 14:42 Duloxetine HCl (Cymbalta) 30 mg PO DAILY@2300 [facility] Stop: 02/19/19 22:59 Last Admin: 01/20/19 22:30 Dose: 30 mg Documented by: Econazole Nitrate (Spectazole 1%) 1 appln TOP DAILY PRN PRN Reason: Rash Stop: 02/19/19 14:42 Fexofenadine HCl (Anny) 180 mg PO DAILY PRN PRN Reason: ALLERGY RELIEF Stop: 02/19/19 14:42 Finasteride (Proscar) 5 mg PO Q24H [facility] Stop: 02/20/19 15:59 Fish Oil ([place]-3 (Purified Fish Oil)) 1 gm PO BID [facility] Stop: 02/19/19 20:59 Last Admin: 01/21/19 09:16 Dose: 1 gm Documented by: Fluticasone Propionate (Flonase) 2 sprays NA DAILY [facility] Stop: 02/20/19 08:59 Last Admin: 01/21/19 09:15 Dose: Not Given Documented by: Glucagon (Glucagen) 1 mg SQ UD PRN; Protocol PRN Reason: Hypoglycemia Protocol Stop: 02/19/19 15:45 Glucose (Dex4 Glucose) 4 - 8 tabs PO UD PRN; Protocol PRN Reason: Hypoglycemia Protocol Stop: 02/19/19 15:45 Glucose (Glucose 40%) 15 - 30 gm PO UD PRN; Protocol PRN Reason: Hypoglycemia Protocol Stop: 02/19/19 15:45 Hydromorphone HCl (Dilaudid) 1 mg IV Q4H PRN PRN Reason: Pain Stop: 02/03/19 14:42 Insulin Aspart (Novolog Flexpen) 0 units SC ACHS [facility] Stop: 02/19/19 16:29 Last Admin: 01/21/19 13:30 Dose: 7 units Documented by: Insulin Glargine (Lantus Solostar Pen) 0 - 10 units SC BID [facility] Stop: 02/19/19 20:59 Last Admin: 01/21/19 09:26 Dose: Not Given Documented by: Lactobacillus Acidophilus (Floranex) 4 tab PO DAILY [facility] Stop: 02/20/19 08:59 Last Admin: 01/21/19 09:16 Dose: 4 tab Documented by: Losartan Potassium (Cozaar) 25 mg PO Q24H [facility] Stop: 02/20/19 15:59 Magnesium Hydroxide (Milk Of Magnesia) 30 ml PO Q6H PRN PRN Reason: Constipation Stop: 02/19/19 14:42 Metformin HCl (Glucophage) 850 mg PO BIDM [facility] Stop: 02/20/19 07:59 Last Admin: 01/21/19 09:01 Dose: Not Given Documented by: Metoclopramide HCl (Reglan) 10 mg IV Q6H PRN PRN Reason: Nausea And Vomiting Stop: 02/19/19 14:42 Metoprolol Succinate (Toprol Xl) 100 mg PO BID@0900,1500 [facility] Stop: 02/19/19 16:29 Last Admin: 01/21/19 09:22 Dose: 100 mg Documented by: Miscellaneous (Carbohydrates For Hypoglycemia) 15 - 30 gm PO UD PRN PRN Reason: Hypoglycemia Treatment Stop: 02/19/19 15:45 Multivitamins (Multivitamin Tab) 1 tab PO Q24H [facility] Stop: 02/20/19 15:59 Naloxone HCl (Narcan) 0.1 mg IV Q5M PRN PRN Reason: Oversedation/Resp Depression Stop: 02/19/19 14:42 Nystatin (Mycostatin) 1 appln EXT QID PRN PRN Reason: Affected Skin Folds Stop: 02/20/19 10:54 Ondansetron HCl (Zofran) 4 mg IV Q6H PRN PRN Reason: Nausea And Vomiting Stop: 02/19/19 14:42 Oxycodone HCl (Roxicodone Immediate Rel) 5 - 10 mg PO Q4H PRN PRN Reason: Pain Stop: 02/03/19 14:42 Petrolatum (Butt Paste) 1 appln EXT DAILY [facility] Stop: 02/20/19 08:59 Last Admin: 01/21/19 09:32 Dose: Not Given Documented by: Psyllium Hydrophilic Mucilloid (Metamucil) 1 pkt PO DAILY PRN PRN Reason: Constipation Stop: 02/19/19 15:29 Sodium Biphosphate/Sodium Phosphate (Fleet Enema) 118 ml PA HS PRN PRN Reason: Constipation Stop: 02/19/19 14:42 Tamsulosin HCl (Flomax) 0.4 mg PO QPM [facility] Stop: 02/19/19 20:59 Last Admin: 01/20/19 21:33 Dose: 0.4 mg Documented by: Tramadol HCl (Ultram) 50 mg PO Q6H PRN PRN Reason: Pain Stop: 02/19/19 14:42 Triamterene/HCTZ (Dyazide 37.5/25mg) 1 cap PO DAILY [facility] Stop: 02/20/19 08:59 Last Admin: 01/21/19 13:28 Dose: 1 cap Documented by: Vitamin D (Vitamin D3) 1,000 units PO DAILY [facility] Stop: 02/20/19 08:59 Last Admin: 01/21/19 09:15 Dose: 1,000 units Documented by: Warfarin Sodium (Coumadin) 2 mg PO DAILY@1600 [facility] Stop: 02/19/19 15:59 Last Admin: 01/20/19 16:02 Dose: 2 mg Documented by: Lorna Davis/Glycerin ([place]ersoncks) 1 ea EXT BID PRN PRN Reason: HEMORRHOIDS Stop: 02/19/19 15:17
[2019-01-21] MEDS: WARFARIN SOD 2 MG TAB PO SCH (16:14)
[2019-01-21] MEDS: LOSARTAN POTASSIUM 25 MG TAB PO SCH (16:15)
[2019-01-21] MEDS: FINASTERIDE 5 MG TAB PO SCH (16:15)
[2019-01-21] MEDS: ATORVASTATIN 20 MG TAB PO SCH (16:15)
[2019-01-21] MEDS: MULTIVITAMIN TAB PO SCH (16:16)
[2019-01-21] MEDS: TAMSULOSIN HCL 0.4 MG CAP PO SCH (21:10)
[2019-01-21] MEDS: AMIODARONE 200 MG TAB PO SCH (22:31)
[2019-01-21] MEDS: DULOXETINE HCL 30 MG CAP PO SCH (22:32)
[2019-01-21] MEDS: PSYLLIUM 58.6% POWDER PACKET PO PRN (23:54)
[2019-01-22] MEDS: ACETAMINOPHEN 500 MG TAB PO SCH ×3 (05:28→22:08)
[2019-01-22 06:04] LABS: Basophils # (auto) 0.02 K/uL (0-0.2); Basophils % (auto) 0.2 %; Eosinophils # (auto) 0.37 K/uL (0-0.5); Hematocrit (blood only) 36.3 % (42-52); Immature Granulocytes # (auto) 0.04 K/uL (0.00-0.02); Immature Granulocytes % (auto) 0.4 %; Lymphocytes # (auto) 1.29 K/uL (1.2-3.4); Mean Corpuscular Hemoglobin 29.3 pg (25-34); Mean Corpuscular Hgb Conc 33.1 g/dL (32-36); Mean Corpuscular Volume 88.8 fL (80-100); Mean Platelet Volume 10.8 fL (7.4-10.4); Monocytes # (auto) 1.13 K/uL (0.11-0.59); Monocytes % (auto) 12.3 %; Neutrophils # (auto) 6.35 K/uL (1.4-6.5); Neutrophils % (auto) 69.1 %; Platelet Count 216 K/uL (130-400); RDW Coefficient of Variation 15.2 % (11.5-14.5); RDW Standard Deviation 49.4 fL (36.4-46.3); Red Blood Count 4.09 M/uL (4.7-6.1)
[2019-01-22 06:31] LABS: INR 1.3 (0.9-1.1); Prothrombin Time 13.5 Seconds (9.0-12.0)
[2019-01-22 06:47] LABS: BUN Creatinine Ratio 20.6 (10-20); Calcium 9.1 mg/dl (8.5-10.1); Est GFR (Non-African American) 52.7; Potassium 4.3 mmol/L (3.5-5.1)
[2019-01-22] MEDS: TRIAMTERENE/HCTZ 37.5/25MG CAP PO SCH (09:23)
[2019-01-22] MEDS: FLUTICASONE PROPIONATE NA SPR 16 GM BTL SCH (09:24)
[2019-01-22] MEDS: LACTOBACILLUS ACIDOPHILUS (FLORANEX) TAB PO SCH (09:24)
[2019-01-22] MEDS: OMEGA-3 (PURIFIED FISH OIL) 1 GM CAP PO SCH ×2 (09:25→20:29)
[2019-01-22] MEDS: METOPROLOL SUCC 50MG EXT REL TAB PO SCH ×2 (09:26→14:42)
[2019-01-22] MEDS: CYANOCOBALAMIN 500 MCG TABLET (VITAMIN B-12) PO SCH (09:26)
[2019-01-22] MEDS: CHOLECALCIFEROL 1,000 UNITS TAB PO SCH (09:26)
[2019-01-22] MEDS: INSULIN ASPART 100 UNITS/ML 3 ML PEN SC SCH ×4 (09:28→21:37)
[2019-01-22] MEDS: INSULIN GLARGINE SOLOSTAR 100 UNITS/ML 3 ML PEN SC SCH ×2 (09:29→21:36)
[2019-01-22] MEDS: BUTT PASTE (ZINC OXIDE 16%) 171 APPLN/57 GM JAR EXT SCH (09:32)
--- NOTE | 2019-01-22 10:18 | Orthopedic Progress Note ---
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 PT and OT protocols to mobilize the patient. Daily dressing changes DVT prophylaxis and pain management as written DC planning-return to [facility]. If patient continues to remain stable, possible discharge tomorrow. Subjective Patient lying in bed awake and alert. No complaints today. Appears comfortable. Physical Exam Physical Exam: Incision is clean, dry, intact. He has some mild fracture blisters noted on the anterior portion of the flap. No overt erythema or purulence noted. Results & Data Vital Signs (Past 12 Hours) Vital Signs Temp Pulse Pulse Pulse Resp BP Pulse Ox 01/22/19 09:21 75 117/69 01/22/19 08:00 36.4 C L 75 18 143/85 H 98 01/21/19 23:00 36.8 C 64 18 143/75 H 95 Laboratory Results Laboratory Results WBC 9.20 K/uL (4.8-10.8) 01/22/19 05:17 RBC 4.09 M/uL (4.7-6.1) L 01/22/19 05:17 Hgb 12.0 g/dL (14.0-18.0) L 01/22/19 05:17 Hct 36.3 % (42-52) L 01/22/19 05:17 MCV 88.8 fL (80-100) 01/22/19 05:17 MCH 29.3 pg (25-34) 01/22/19 05:17 MCHC 33.1 g/dL (32-36) 01/22/19 05:17 RDW Std Deviation 49.4 fL (36.4-46.3) H 01/22/19 05:17 RDW Coeff of Chapis 15.2 % (11.5-14.5) H 01/22/19 05:17 Plt Count 216 K/uL (130-400) 01/22/19 05:17 MPV 10.8 fL (7.4-10.4) H 01/22/19 05:17 Immature Gran % (Auto) 0.4 % 01/22/19 05:17 Neut % (Auto) 69.1 % 01/22/19 05:17 Lymph % (Auto) 14.0 % 01/22/19 05:17 [place] % (Auto) 12.3 % 01/22/19 05:17 Eos % (Auto) 4.0 % 01/22/19 05:17 Baso % (Auto) 0.2 % 01/22/19 05:17 Immature Gran # (Auto) 0.04 K/uL (0.00-0.02) H 01/22/19 05:17 Neut # (Auto) 6.35 K/uL (1.4-6.5) 01/22/19 05:17 Lymph # (Auto) 1.29 K/uL (1.2-3.4) 01/22/19 05:17 [place] # (Auto) 1.13 K/uL (0.11-0.59) H 01/22/19 05:17 Eos # (Auto) 0.37 K/uL (0-0.5) 01/22/19 05:17 Baso # (Auto) 0.02 K/uL (0-0.2) 01/22/19 05:17 PT 13.5 Seconds (9.0-12.0) H 01/22/19 05:17 INR 1.3 (0.9-1.1) H 01/22/19 05:17 APTT 31.3 Seconds (21.0-31.0) H 01/20/19 08:45 PTT Ratio 1.2 01/20/19 08:45 Sodium 132 mmol/L (136-145) L 01/22/19 05:17 Potassium 4.3 mmol/L (3.5-5.1) 01/22/19 05:17 Chloride 97 mmol/L (98-107) L 01/22/19 05:17 Carbon Dioxide 28 mmol/L (21-32) 01/22/19 05:17 Anion Gap 7.0 (3-11) 01/22/19 05:17 BUN 27 mg/dl (7-18) H 01/22/19 05:17 Creatinine 1.33 mg/dl (0.6-1.4) 01/22/19 05:17 Est Cr Clr Drug Dosing 85.0 ml/min 01/22/19 05:17 Est GFR ( Amer) 61.0 01/22/19 05:17 Est GFR (Non-Af Amer) 52.7 01/22/19 05:17 BUN/Creatinine Ratio 20.6 (10-20) H 01/22/19 05:17 Glucose 110 mg/dl (70-99) H 01/22/19 05:17 POC Glucose 119 (70-99) H 01/22/19 08:28 Estimat Average Glucose 126 mg/dl 01/21/19 05:39 Hemoglobin A1c 6.0 % (4.5-5.6) H 01/21/19 05:39 Calcium 9.1 mg/dl (8.5-10.1) 01/22/19 05:17 Magnesium 2.0 mg/dl (1.8-2.4) 01/22/19 05:17 Nasal Screen MRSA (PCR) Negative (Negative) 01/20/19 Unknown Blood Type O Positive 01/20/19 08:45 Antibody Screen NEGATIVE 01/20/19 08:45
--- NOTE | 2019-01-22 13:15 | Hospitalist Progress Note ---
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 Winston CELESTE 20ml Pain/wound management per ortho Activity and therapy as directed by ortho incentive spirometry Bowel regimen per ortho Denies any significant pain at the operation site Hemoglobin remains stable at 12.3 on 01/21 Hemoglobin remains stable Difficulty in urination Required straight cath x1 with output of more than 70 mL's Wanted to have his triamterene/HCTZ restarted Advised adequate fluid intake Triamterene/HCTZ has been stopped Has been passing urine normally since this morning (2) PAF (paroxysmal atrial fibrillation): rate and rhythm controlled on metoprolol warfarin resumed per ortho monitor INR, goal 2-3 INR was 1.3 on 01/20 INR will be checked tomorrow INR remains subtherapeutic at 1.3-continue Coumadin for now (3) HTN (hypertension): blood pressure stable continue metoprolol, losartan hold triamterene/hctz until volume status re-evaluated in a.m. Pressure remains stable Triamterene/HCTZ has been restarted Has been feeling better following administration of triamterene/HCTZ (4) Pre-diabetes: A1C 6.3 Hold metformin Lantus/novolog per protocol pt received dexamethasone pre-op so expect post op hyperglycemia A1C in a.m.--6.0 110/19 (5) HLD (hyperlipidemia): continue statin (6) ARVIND on CPAP: Cpap at (7) Morbid obesity: BMI 56 encourage lifestyle modifications (8) DVT prophylaxis: Warfarin resumed per ortho monitor PT/INR Disposition: per ortho Follow up: PCP Dr. Choudhury upon discharge Subjective 01/21 The patient was seen and examined in medical floor He is status post right BKA POD #1 Denies any significant pain at the stump site Has a problem with urination last evening and required straight cath x1 Denies any other symptoms this morning 01/22 The patient was seen and examined in medical floor Is a status post right BKA POD #2 Minimal pain at this time Required another straight cath last night but has been passing urine since this morning Eyes any significant symptom Review of Systems Review of Systems: All systems reviewed and are unremarkable except as noted below Musculoskeletal: Status post right BKA. Minimal pain at the operation site Physical Exam Physical Exam: No apparent distress at rest Constitutional: well developed, well nourished and + morbidly obese; no acute distress and not ill appearing Eyes: PERRL, conjunctivae normal, anicteric sclerae ENMT: external ear and nose normal, oropharynx normal Neck: trachea midline, no thyromegaly Respiratory: normal respiratory effort; no respiratory distress Auscultation: lungs clear to auscultation bilaterally (With diminished breath sounds) and + diminished lung sounds Cardiovascular: Rate/Rhythm: regular rate and regular rhythm Extremities: + edema (Trace edema bilaterally) Gastrointestinal (Abdomen): Inspection/Auscultation: abdomen normal to inspection and normal bowel sounds Percussion/Palpation: abdomen soft Musculoskeletal: Has right BKA Skin: no rashes, warm and dry Neurologic: normal touch/pain/proprioception and moves all extremities; no focal motor deficits Psychiatric: A+Ox3, euthymic affect Lymphatic: no cervical or axillary lymphadenopathy Results & Data Vital Signs (Past 12 Hours) Vital Signs Temp Pulse Pulse Resp BP Pulse Ox 01/22/19 09:21 75 117/69 01/22/19 08:00 36.4 C L 75 18 143/85 H 98 Laboratory Results Short CBC 01/22/19 Range/Units 05:17 WBC 9.20 (4.8-10.8) K/uL Hgb 12.0 L (14.0-18.0) g/dL Hct 36.3 L (42-52) % Plt Count 216 (130-400) K/uL BMP 01/22/19 05:17 Sodium 132 L Potassium 4.3 Chloride 97 L Carbon Dioxide 28 BUN 27 H Creatinine 1.33 Glucose 110 H Calcium 9.1 Medications Administered Current Inpatient Medications Acetaminophen (Tylenol) 1,000 mg PO Q8 [facility] Stop: 02/19/19 15:14 Last Admin: 01/22/19 05:28 Dose: 1,000 mg Documented by: Al Hydrox/Mg Hydrox/Simethicone (Maalox) 15 ml PO Q4H PRN PRN Reason: Heartburn Stop: 02/19/19 14:42 Amiodarone HCl (Cordarone) 100 mg PO DAILY@2200 [facility] Stop: 02/19/19 21:59 Last Admin: 01/21/19 22:31 Dose: 100 mg Documented by: Atorvastatin Calcium (Lipitor) 20 mg PO Q24H [facility] Stop: 02/20/19 15:59 Last Admin: 01/21/19 16:15 Dose: 20 mg Documented by: Bisacodyl (Dulcolax) 10 mg [place] DAILY PRN PRN Reason: Constipation Stop: 02/19/19 14:42 Cyanocobalamin (Vitamin B-12) 1,000 mcg PO DAILY [facility] Stop: 02/20/19 08:59 Last Admin: 01/22/19 09:26 Dose: 1,000 mcg Documented by: Dextrose (Dextrose 50%) 25 - 50 ml IV UD PRN; Protocol PRN Reason: Hypoglycemia Protocol Stop: 02/19/19 15:45 Diphenhydramine HCl (Benadryl Capsule) 25 mg PO Q8H PRN PRN Reason: Itching Stop: 02/19/19 14:42 Duloxetine HCl (Cymbalta) 30 mg PO DAILY@2300 [facility] Stop: 02/19/19 22:59 Last Admin: 01/21/19 22:32 Dose: 30 mg Documented by: Econazole Nitrate (Spectazole 1%) 1 appln TOP DAILY PRN PRN Reason: Rash Stop: 02/19/19 14:42 Last Admin: 01/21/19 20:52 Dose: 1 appln Documented by: Fexofenadine HCl (Anny) 180 mg PO DAILY PRN PRN Reason: ALLERGY RELIEF Stop: 02/19/19 14:42 Finasteride (Proscar) 5 mg PO Q24H [facility] Stop: 02/20/19 15:59 Last Admin: 01/21/19 16:15 Dose: 5 mg Documented by: Fish Oil ([place]-3 (Purified Fish Oil)) 1 gm PO BID [facility] Stop: 02/19/19 20:59 Last Admin: 01/22/19 09:25 Dose: 1 gm Documented by: Fluticasone Propionate (Flonase) 2 sprays NA DAILY [facility] Stop: 02/20/19 08:59 Last Admin: 01/22/19 09:24 Dose: Not Given Documented by: Glucagon (Glucagen) 1 mg SQ UD PRN; Protocol PRN Reason: Hypoglycemia Protocol Stop: 02/19/19 15:45 Glucose (Dex4 Glucose) 4 - 8 tabs PO UD PRN; Protocol PRN Reason: Hypoglycemia Protocol Stop: 02/19/19 15:45 Glucose (Glucose 40%) 15 - 30 gm PO UD PRN; Protocol PRN Reason: Hypoglycemia Protocol Stop: 02/19/19 15:45 Hydromorphone HCl (Dilaudid) 1 mg IV Q4H PRN PRN Reason: Pain Stop: 02/03/19 14:42 Insulin Aspart (Novolog Flexpen) 0 units SC ACHS [facility] Stop: 02/19/19 16:29 Last Admin: 01/22/19 12:50 Dose: 5 units Documented by: Insulin Glargine (Lantus Solostar Pen) 0 - 10 units SC BID [facility] Stop: 02/19/19 20:59 Last Admin: 01/22/19 09:29 Dose: Not Given Documented by: Lactobacillus Acidophilus (Floranex) 4 tab PO DAILY [facility] Stop: 02/20/19 08:59 Last Admin: 01/22/19 09:24 Dose: 4 tab Documented by: Losartan Potassium (Cozaar) 25 mg PO Q24H [facility] Stop: 02/20/19 15:59 Last Admin: 01/21/19 16:15 Dose: 25 mg Documented by: Magnesium Hydroxide (Milk Of Magnesia) 30 ml PO Q6H PRN PRN Reason: Constipation Stop: 02/19/19 14:42 Metformin HCl (Glucophage) 850 mg PO BIDM [facility] Stop: 02/20/19 07:59 Last Admin: 01/21/19 09:01 Dose: Not Given Documented by: Metoclopramide HCl (Reglan) 10 mg IV Q6H PRN PRN Reason: Nausea And Vomiting Stop: 02/19/19 14:42 Metoprolol Succinate (Toprol Xl) 100 mg PO BID@0900,1500 [facility] Stop: 02/19/19 16:29 Last Admin: 01/22/19 09:26 Dose: 100 mg Documented by: Miscellaneous (Carbohydrates For Hypoglycemia) 15 - 30 gm PO UD PRN PRN Reason: Hypoglycemia Treatment Stop: 02/19/19 15:45 Multivitamins (Multivitamin Tab) 1 tab PO Q24H [facility] Stop: 02/20/19 15:59 Last Admin: 01/21/19 16:16 Dose: 1 tab Documented by: Naloxone HCl (Narcan) 0.1 mg IV Q5M PRN PRN Reason: Oversedation/Resp Depression Stop: 02/19/19 14:42 Nystatin (Mycostatin) 1 appln EXT QID PRN PRN Reason: Affected Skin Folds Stop: 02/20/19 10:54 Last Admin: 01/21/19 20:52 Dose: 1 appln Documented by: Ondansetron HCl (Zofran) 4 mg IV Q6H PRN PRN Reason: Nausea And Vomiting Stop: 02/19/19 14:42 Oxycodone HCl (Roxicodone Immediate Rel) 5 - 10 mg PO Q4H PRN PRN Reason: Pain Stop: 02/03/19 14:42 Petrolatum (Butt Paste) 1 appln EXT DAILY [facility] Stop: 02/20/19 08:59 Last Admin: 01/22/19 09:32 Dose: Not Given Documented by: Psyllium Hydrophilic Mucilloid (Metamucil) 1 pkt PO DAILY PRN PRN Reason: Constipation Stop: 02/19/19 15:29 Last Admin: 01/21/19 23:54 Dose: 1 pkt Documented by: Sodium Biphosphate/Sodium Phosphate (Fleet Enema) 118 ml [place] HS PRN PRN Reason: Constipation Stop: 02/19/19 14:42 Tamsulosin HCl (Flomax) 0.4 mg PO QPM [facility] Stop: 02/19/19 20:59 Last Admin: 01/21/19 21:10 Dose: 0.4 mg Documented by: Tramadol HCl (Ultram) 50 mg PO Q6H PRN PRN Reason: Pain Stop: 02/19/19 14:42 Triamterene/HCTZ (Dyazide 37.5/25mg) 1 cap PO DAILY [facility] Stop: 02/20/19 08:59 Last Admin: 01/22/19 09:23 Dose: 1 cap Documented by: Vitamin D (Vitamin D3) 1,000 units PO DAILY [facility] Stop: 02/20/19 08:59 Last Admin: 01/22/19 09:26 Dose: 1,000 units Documented by: Warfarin Sodium (Coumadin) 2 mg PO DAILY@1600 [facility] Stop: 02/19/19 15:59 Last Admin: 01/21/19 16:14 Dose: 2 mg Documented by: Lorna Susan/Glycerin ([place]) 1 ea EXT BID PRN PRN Reason: HEMORRHOIDS Stop: 02/19/19 15:17
[2019-01-22] MEDS: WARFARIN SOD 2 MG TAB PO SCH (15:55)
[2019-01-22] MEDS: LOSARTAN POTASSIUM 25 MG TAB PO SCH (15:56)
[2019-01-22] MEDS: ATORVASTATIN 20 MG TAB PO SCH (15:56)
[2019-01-22] MEDS: MULTIVITAMIN TAB PO SCH (15:57)
[2019-01-22] MEDS: FINASTERIDE 5 MG TAB PO SCH (15:57)
[2019-01-22] MEDS: TAMSULOSIN HCL 0.4 MG CAP PO SCH (20:29)
[2019-01-22] MEDS: DULOXETINE HCL 30 MG CAP PO SCH (22:08)
[2019-01-22] MEDS: AMIODARONE 200 MG TAB PO SCH (22:08)
[2019-01-22] MEDS: PSYLLIUM 58.6% POWDER PACKET PO PRN (22:09)
[2019-01-23] MEDS: ACETAMINOPHEN 500 MG TAB PO SCH ×2 (05:20→13:09)
[2019-01-23] MEDS: BUTT PASTE (ZINC OXIDE 16%) 171 APPLN/57 GM JAR EXT SCH (08:40)
[2019-01-23] MEDS: INSULIN ASPART 100 UNITS/ML 3 ML PEN SC SCH ×3 (08:40→17:44)
[2019-01-23] MEDS: OMEGA-3 (PURIFIED FISH OIL) 1 GM CAP PO SCH (08:40)
[2019-01-23] MEDS: METOPROLOL SUCC 50MG EXT REL TAB PO SCH ×2 (08:41→14:03)
[2019-01-23] MEDS: CHOLECALCIFEROL 1,000 UNITS TAB PO SCH (08:41)
[2019-01-23] MEDS: CYANOCOBALAMIN 500 MCG TABLET (VITAMIN B-12) PO SCH (08:41)
[2019-01-23] MEDS: TRIAMTERENE/HCTZ 37.5/25MG CAP PO SCH (08:41)
[2019-01-23] MEDS: FLUTICASONE PROPIONATE NA SPR 16 GM BTL SCH (08:42)
[2019-01-23] MEDS: LACTOBACILLUS ACIDOPHILUS (FLORANEX) TAB PO SCH (08:42)
[2019-01-23] MEDS: INSULIN GLARGINE SOLOSTAR 100 UNITS/ML 3 ML PEN SC SCH (08:43)
--- NOTE | 2019-01-23 09:35 | Orthopedic Progress Note ---
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 PT and OT protocols to mobilize the patient. Daily dressing changes DVT prophylaxis and pain management as written DC planning-return to [facility] possibly today if bed available and insurance approves. Subjective Patient lying in bed awake and alert. No complaints today. Appears comfortable. No complaints of pain. Had been having difficulties with urination and had to have a straight cath placed. He was able to urinate last evening. Still feels like he isn't able to fully void but he was also started on his BPH meds yesterday. Physical Exam Constitutional: well developed, well nourished and + morbidly obese; no acute distress ENMT: external ear and nose normal, oropharynx normal Neck: trachea midline, no thyromegaly Respiratory: normal respiratory effort, lungs clear to auscultation Cardiovascular: Rate/Rhythm: regular rate and regular rhythm Gastrointestinal (Abdomen): normal bowel sounds, soft, nontender, no hepatosplenomegaly Musculoskeletal: Right lower leg: Dressing C/D/I. Mild serous drainage on the anterior most aspect of the BKA incision/Kerlix. Flap is soft. Skin: no rashes, warm and dry Neurologic: normal touch/pain/proprioception Psychiatric: A+Ox3, euthymic affect Lymphatic: no cervical or axillary lymphadenopathy Results & Data Vital Signs (Past 12 Hours) Vital Signs Temp Pulse Pulse Resp BP Pulse Ox 01/23/19 07:35 36.8 C 84 20 162/92 H 95 01/23/19 01:39 72 18 95 01/22/19 23:50 16 01/22/19 22:50 37 C 75 18 152/85 H 94
--- NOTE | 2019-01-23 09:58 | Anesthesiology Progress Note ---
Date of Service January 23, 2019 Anesthesia Post Procedure Vital Signs Vital Signs: Temp Pulse Pulse Pulse Resp BP Pulse Ox 01/23/19 07:35 36.8 C 84 20 162/92 H 95 01/23/19 01:39 72 18 95 01/22/19 23:50 16 01/22/19 22:50 37 C 75 18 152/85 H 94 01/22/19 15:00 36.6 C 68 18 125/81 96 01/22/19 14:41 67 135/75 Pain Intensity Back: Pain Intensity: 6 Right Leg: Pain Intensity: 3 Notes Mental Status: alert / awake / arousable and participated in evaluation Nausea / Vomiting: adequately controlled Pain: adequately controlled Airway Patency, RR, SpO2: stable & adequate BP & HR: stable & adequate Hydration State: stable & adequate Anesthetic Complications: no major complications apparent and Pt Satisfied with anesthetic care Notes: The patient complains of not being able to fully empty his bladder. He says he has voided several times last evening, but needed straight cathed to completely empty his bladder. He has a history of BPH and is restarting meds following surgery.
--- NOTE | 2019-01-23 15:17 | Hospitalist Progress Note ---
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 Winston CELESTE 20ml Pain/wound management per ortho Activity and therapy as directed by ortho incentive spirometry Bowel regimen per ortho Denies any significant pain at the operation site Hemoglobin remains stable at 12.3 on 01/21 Hemoglobin remains stable Hemoglobin 12.0 110/21 Difficulty in urination Required straight cath x1 with output of more than 70 mL's Wanted to have his triamterene/HCTZ restarted Advised adequate fluid intake Triamterene/HCTZ has been stopped Has been passing urine normally since this morning (2) PAF (paroxysmal atrial fibrillation): rate and rhythm controlled on metoprolol warfarin resumed per ortho monitor INR, goal 2-3 INR was 1.3 on 01/20 INR will be checked tomorrow INR remains subtherapeutic at 1.3-continue Coumadin for now Continue Coumadin, INR is not therapeutic yet (3) HTN (hypertension): blood pressure stable continue metoprolol, losartan hold triamterene/hctz until volume status re-evaluated in a.m. Pressure remains stable Triamterene/HCTZ has been restarted Has been feeling better following administration of triamterene/HCTZ (4) Pre-diabetes: A1C 6.3 Hold metformin Lantus/novolog per protocol pt received dexamethasone pre-op so expect post op hyperglycemia A1C in a.m.--6.0 110/19 (5) HLD (hyperlipidemia): continue statin (6) ARVIND on CPAP: Cpap at (7) Morbid obesity: BMI 56 encourage lifestyle modifications (8) DVT prophylaxis: Warfarin resumed per ortho monitor PT/INR Disposition: per ortho Likely discharge this afternoon/tomorrow Follow up: PCP Dr. Choudhury upon discharge Subjective 01/21 The patient was seen and examined in medical floor He is status post right BKA POD #1 Denies any significant pain at the stump site Has a problem with urination last evening and required straight cath x1 Denies any other symptoms this morning 01/22 The patient was seen and examined in medical floor Is a status post right BKA POD #2 Minimal pain at this time Required another straight cath last night but has been passing urine since this morning Eyes any significant symptom 01/23 The patient was seen and examined in medical floor He has been doing much better No more retention of urine Bowel has not been moved yet but does not want to have anything right now He would like to go back to [facility] this afternoon Review of Systems Review of Systems: All systems reviewed and are unremarkable except as noted below Musculoskeletal: Status post right BKA. Minimal pain at the operation site Physical Exam Physical Exam: Lying in bed comfortably Constitutional: well developed, well nourished and + morbidly obese; no acute distress and not ill appearing Eyes: PERRL, conjunctivae normal, anicteric sclerae ENMT: external ear and nose normal, oropharynx normal Neck: trachea midline, no thyromegaly Respiratory: normal respiratory effort; no respiratory distress Auscultation: lungs clear to auscultation bilaterally (With diminished breath sounds) and + diminished lung sounds Cardiovascular: Rate/Rhythm: regular rate and regular rhythm Extremities: + edema (Trace edema bilaterally) Gastrointestinal (Abdomen): Inspection/Auscultation: abdomen normal to ins pection and normal bowel sounds Percussion/Palpation: abdomen soft Musculoskeletal: Status post right BKA with some pain on movement Skin: no rashes, warm and dry Neurologic: normal touch/pain/proprioception and moves all extremities; no focal motor deficits Psychiatric: A+Ox3, euthymic affect Lymphatic: no cervical or axillary lymphadenopathy Results & Data Vital Signs (Past 12 Hours) Vital Signs Temp Pulse Resp BP Pulse Ox 01/23/19 15:04 36.8 C 96 H 18 137/81 94 01/23/19 14:18 36.8 C 84 20 162/92 H 95 01/23/19 07:35 36.8 C 84 20 162/92 H 95 Medications Administered Current Inpatient Medications Acetaminophen (Tylenol) 1,000 mg PO Q8 [facility] Stop: 02/19/19 15:14 Last Admin: 01/23/19 13:09 Dose: 1,000 mg Documented by: Al Hydrox/Mg Hydrox/Simethicone (Maalox) 15 ml PO Q4H PRN PRN Reason: Heartburn Stop: 02/19/19 14:42 Amiodarone HCl (Cordarone) 100 mg PO DAILY@2200 [facility] Stop: 02/19/19 21:59 Last Admin: 01/22/19 22:08 Dose: 100 mg Documented by: Atorvastatin Calcium (Lipitor) 20 mg PO Q24H [facility] Stop: 02/20/19 15:59 Last Admin: 01/22/19 15:56 Dose: 20 mg Documented by: Bisacodyl (Dulcolax) 10 mg [place] DAILY PRN PRN Reason: Constipation Stop: 02/19/19 14:42 Cyanocobalamin (Vitamin B-12) 1,000 mcg PO DAILY [facility] Stop: 02/20/19 08:59 Last Admin: 01/23/19 08:41 Dose: 1,000 mcg Documented by: Dextrose (Dextrose 50%) 25 - 50 ml IV UD PRN; Protocol PRN Reason: Hypoglycemia Protocol Stop: 02/19/19 15:45 Diphenhydramine HCl (Benadryl Capsule) 25 mg PO Q8H PRN PRN Reason: Itching Stop: 02/19/19 14:42 Duloxetine HCl (Cymbalta) 30 mg PO DAILY@2300 [facility] Stop: 02/19/19 22:59 Last Admin: 01/22/19 22:08 Dose: 30 mg Documented by: Econazole Nitrate (Spectazole 1%) 1 appln TOP DAILY PRN PRN Reason: Rash Stop: 02/19/19 14:42 Last Admin: 01/21/19 20:52 Dose: 1 appln Documented by: Fexofenadine HCl (Anny) 180 mg PO DAILY PRN PRN Reason: ALLERGY RELIEF Stop: 02/19/19 14:42 Finasteride (Proscar) 5 mg PO Q24H [facility] Stop: 02/20/19 15:59 Last Admin: 01/22/19 15:57 Dose: 5 mg Documented by: Fish Oil ([place]-3 (Purified Fish Oil)) 1 gm PO BID [facility] Stop: 02/19/19 20:59 Last Admin: 01/23/19 08:40 Dose: 1 gm Documented by: Fluticasone Propionate (Flonase) 2 sprays NA DAILY [facility] Stop: 02/20/19 08:59 Last Admin: 01/23/19 08:42 Dose: Not Given Documented by: Glucagon (Glucagen) 1 mg SQ UD PRN; Protocol PRN Reason: Hypoglycemia Protocol Stop: 02/19/19 15:45 Glucose (Dex4 Glucose) 4 - 8 tabs PO UD PRN; Protocol PRN Reason: Hypoglycemia Protocol Stop: 02/19/19 15:45 Glucose (Glucose 40%) 15 - 30 gm PO UD PRN; Protocol PRN Reason: Hypoglycemia Protocol Stop: 02/19/19 15:45 Hydromorphone HCl (Dilaudid) 1 mg IV Q4H PRN PRN Reason: Pain Stop: 02/03/19 14:42 Insulin Aspart (Novolog Flexpen) 0 units SC ACHS [facility] Stop: 02/19/19 16:29 Last Admin: 01/23/19 13:09 Dose: 7 units Documented by: Insulin Glargine (Lantus Solostar Pen) 0 - 10 units SC BID [facility] Stop: 02/19/19 20:59 Last Admin: 01/23/19 08:43 Dose: Not Given Documented by: Lactobacillus Acidophilus (Floranex) 4 tab PO DAILY [facility] Stop: 02/20/19 08:59 Last Admin: 01/23/19 08:42 Dose: 4 tab Documented by: Losartan Potassium (Cozaar) 25 mg PO Q24H [facility] Stop: 02/20/19 15:59 Last Admin: 01/22/19 15:56 Dose: 25 mg Documented by: Magnesium Hydroxide (Milk Of Magnesia) 30 ml PO Q6H PRN PRN Reason: Constipation Stop: 02/19/19 14:42 Metformin HCl (Glucophage) 850 mg PO BIDM [facility] Stop: 02/20/19 07:59 Last Admin: 01/21/19 09:01 Dose: Not Given Documented by: Metoclopramide HCl (Reglan) 10 mg IV Q6H PRN PRN Reason: Nausea And Vomiting Stop: 02/19/19 14:42 Metoprolol Succinate (Toprol Xl) 100 mg PO BID@0900,1500 [facility] Stop: 02/19/19 16:29 Last Admin: 01/23/19 14:03 Dose: 100 mg Documented by: Miscellaneous (Carbohydrates For Hypoglycemia) 15 - 30 gm PO UD PRN PRN Reason: Hypoglycemia Treatment Stop: 02/19/19 15:45 Multivitamins (Multivitamin Tab) 1 tab PO Q24H [facility] Stop: 02/20/19 15:59 Last Admin: 01/22/19 15:57 Dose: 1 tab Documented by: Naloxone HCl (Narcan) 0.1 mg IV Q5M PRN PRN Reason: Oversedation/Resp Depression Stop: 02/19/19 14:42 Nystatin (Mycostatin) 1 appln EXT QID PRN PRN Reason: Affected Skin Folds Stop: 02/20/19 10:54 Last Admin: 01/21/19 20:52 Dose: 1 appln Documented by: Ondansetron HCl (Zofran) 4 mg IV Q6H PRN PRN Reason: Nausea And Vomiting Stop: 02/19/19 14:42 Oxycodone HCl (Roxicodone Immediate Rel) 5 - 10 mg PO Q4H PRN PRN Reason: Pain Stop: 02/03/19 14:42 Petrolatum (Butt Paste) 1 appln EXT DAILY [facility] Stop: 02/20/19 08:59 Last Admin: 01/23/19 08:40 Dose: 1 appln Documented by: Psyllium Hydrophilic Mucilloid (Metamucil) 1 pkt PO DAILY PRN PRN Reason: Constipation Stop: 02/19/19 15:29 Last Admin: 01/22/19 22:09 Dose: 1 pkt Documented by: Sodium Biphosphate/Sodium Phosphate (Fleet Enema) 118 ml [place] HS PRN PRN Reason: Constipation Stop: 02/19/19 14:42 Tamsulosin HCl (Flomax) 0.4 mg PO QPM [facility] Stop: 02/19/19 20:59 Last Admin: 01/22/19 20:29 Dose: 0.4 mg Documented by: Tramadol HCl (Ultram) 50 mg PO Q6H PRN PRN Reason: Pain Stop: 02/19/19 14:42 Triamterene/HCTZ (Dyazide 37.5/25mg) 1 cap PO DAILY [facility] Stop: 02/20/19 08:59 Last Admin: 01/23/19 08:41 Dose: 1 cap Documented by: Vitamin D (Vitamin D3) 1,000 units PO DAILY [facility] Stop: 02/20/19 08:59 Last Admin: 01/23/19 08:41 Dose: 1,000 units Documented by: Warfarin Sodium (Coumadin) 2 mg PO DAILY@1600 [facility] Stop: 02/19/19 15:59 Last Admin: 01/22/19 15:55 Dose: 2 mg Documented by: Lorna Susan/Glycerin (Tucks) 1 ea EXT BID PRN PRN Reason: HEMORRHOIDS Stop: 02/19/19 15:17
[2019-01-23] MEDS: MULTIVITAMIN TAB PO SCH (16:25)
[2019-01-23] MEDS: ATORVASTATIN 20 MG TAB PO SCH (16:26)
[2019-01-23] MEDS: WARFARIN SOD 2 MG TAB PO SCH (16:26)
[2019-01-23] MEDS: LOSARTAN POTASSIUM 25 MG TAB PO SCH (16:26)
[2019-01-23] MEDS: FINASTERIDE 5 MG TAB PO SCH (16:49)
--- NOTE | 2019-01-27 22:13 | Discharge Summary ---
Date of Service January 27, 2019 Admission HPI Per Admitting Provider This is a patient who started having severe pain and swelling in his right hindfoot and lower leg in the spring of this year. He had undergone many imaging tests which noted a calcaneus fx and Charcot arthropathy of the hindfoot. He had 2 opinions of the lower leg and a BKA was recommended. The patient is now being set up for for a right BKA. Principal Diagnosis Right Charcot arthropathy Discharge Exam Constitutional well developed, well nourished and + morbidly obese; no acute distress ENMT external ear and nose normal, oropharynx normal Neck trachea midline, no thyromegaly Respiratory normal respiratory effort, lungs clear to auscultation Cardiovascular Rate/Rhythm: regular rate and regular rhythm Gastrointestinal (Abdomen) normal bowel sounds, soft, nontender, no hepatosplenomegaly Musculoskeletal Right lower leg: BKA incision/flap is well approximated. No erythema. Soft. Minimal tenderness. Skin no rashes, warm and dry Neurologic normal touch/pain/proprioception Psychiatric A+Ox3, euthymic affect Lymphatic no cervical or axillary lymphadenopathy Discharge Data Allergies Allergy/AdvReac Type Severity Reaction Status Date / Time Penicillins Allergy Severe edema of Verified 01/20/19 09:04 airway gabapentin Allergy Mild Unknown Verified 01/20/19 09:04 cephalexin AdvReac Mild Nausea Verified 01/20/19 09:04 codeine AdvReac Mild Nausea Verified 01/20/19 09:04 furosemide [From Lasix] AdvReac Mild Weakness Verified 01/20/19 09:04 Consultations 01/20/19 14:43 Consult Case Management - Discharge Planning Routine Consult Hospitalist Routine Procedures Performed Operation Date: 01/20/19 10:10 Actual Procedures p Right Below Knee Amputation(Right) - Davi Montero DO Ordered Studies 01/20/19 10:11 US - OR guided needle placemen Routine Hospital Course (1) 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 He had daily dressing changes while inpatient. Pain control was a main goal for the patient. He was having urinary retention on POD #1 and #2 which improved by POD #3. Once the patient was able to return to [facility], he was discharged. Postop day 3 status post right BKA. PT and OT protocols to mobilize the patient. Daily dressing changes DVT prophylaxis and pain management as written DC planning-return to [facility] today if bed available and insurance approves. Total Time Total Time Spent Total Time Spent (In Minutes): 60 Total Time Includes: Examination of the Patient, Discharge Planning and Medication Reconciliation Discharge Plan Discharge Items Patient Disposition: Transfer Long Term Fac Reason For Visit: Charcot's Joint, Right Ankle/Foot, Calcaneus Fx Discharge Diagnosis: Charcot Joint right ankle/foot Condition on Discharge: Fair Activity: Per Instructions section Weightbearing: Right non-weightbearing Non-emergency contact: Surgeon Call non-emergency contact if: your pain is not controlled, your temperature is above 101.5, your wound has increased redness and your wound has increased drainage Follow-up/Referrals: Kyler Choudhury MD [Primary Care Provider] - (Please make an appointment with your primary care provider within 7 days. The flu shot was given during this hospitalization.) Diet: Carb Consistent or DM2 Addtl Attending Provider Instructions: Daily dressing changes. Adaptic single layer cut to the size of the incision, 4x4's, ABD's, kerlix and edmund wrap. Ok to shower if having minimal drainage. Keep stump elevated when at rest. May have patient evaluated for agricultural lender sock. He received the flu shot during this hospitalization Follow up with Dr. Montero in 10-14 days. Call for appointment. [phone] Pending Studies at Discharge: No Stand-Alone Forms: My [facility] Skilled Items Patient informed of condition?: Yes DNR: No Discharge Level of Care: Skilled Communicable Disease: No Discharge Prognosis: Stable Lines: None Urinary Catheter: No Medications and DC Order Prescriptions: New oxycodone-acetaminophen [Percocet] 5-325 mg tablet 1 tab PO Q4H PRN (Reason: pain) Qty: 30 RF: 0 Continued nystatin 100,000 unit/gram Ointment 1 applic TOPICAL BID RF: 0 metformin 850 mg tablet 850 mg PO BID RF: 0 cyanocobalamin (vitamin B-12) [Vitamin B-12] 1,000 mcg Tablet 1,000 mcg PO DAILY RF: 0 triamterene-hydrochlorothiazid 37.5-25 mg capsule 1 cap PO DAILY RF: 0 tamsulosin 0.4 mg Capsule 0.4 mg PO DAILY RF: 0 econazole 1 % cream 1 applic topical UD RF: 0 Lactobacillus acidophilus [Acidophilus] Capsule 100 mg PO DAILY RF: 0 fluticasone propionate [Flonase Allergy Relief] 50 mcg/actuation [place] homa 2 spray INTRANASAL DAILY RF: 0 finasteride 5 mg tablet 5 mg PO DAILY RF: 0 cholecalciferol (vitamin D3) [Vitamin D3] 1,000 unit Capsule 1,000 unit PO DAILY RF: 0 coenzyme Q10 100 mg Capsule 100 mg PO DAILY RF: 0 duloxetine 30 mg capsule,delayed release(DR/EC) 30 mg PO DAILY RF: 0 PreviDent 5000 Sensitive 1.1-5 % Paste 1 applic DENTAL BID RF: 0 arginine HCl (L-arginine) 1,000 mg Tablet 1,000 mg PO DAILY RF: 0 omega 2-hig-epy-fish oil [Fish Oil] 1,000 mg (120 mg-180 mg) Capsule 1 cap PO BID RF: 0 Metamucil 3.4 gram/5.4 gram Powder 1 tbsp PO DAILY PRN (Reason: NEEDED) RF: 0 multivitamin Tablet 1 tab PO DAILY RF: 0 acetaminophen [Tylenol] 325 mg Tablet 650 mg PO Q6H PRN (Reason: PAIN/FEVER) RF: 0 atorvastatin 20 mg Tablet 20 mg PO DAILY RF: 0 metoprolol succinate 100 mg Tablet Extended Release 24 Hr 100 mg PO BID RF: 0 fexofenadine 180 mg Tablet 180 mg PO DAILY PRN (Reason: ALLERGY RELIEF) RF: 0 tramadol 50 mg Tablet 50 mg PO Q6H PRN (Reason: Pain) RF: 0 magnesium hydroxide [Milk of Magnesia] 400 mg/5 mL Suspension 30 ml PO DAILY PRN (Reason: Constipation) RF: 0 warfarin [Coumadin] 2 mg Tablet 2 mg PO DAILY RF: 0 losartan 25 mg Tablet 25 mg PO DAILY RF: 0 Enema 19-7 gram/118 mL Enema 118 ml [place] HS PRN (Reason: Constipation) RF: 0 L-Phenylalanine 500 mg Tablet 750 mg PO DAILY RF: 0 amiodarone 100 mg Tablet 100 mg PO DAILY RF: 0 Capzasin 0.025-10 % Gel 1 ea TOPICAL DAILY PRN (Reason: Pain) RF: 0 Desitin 40 % Paste 40 % TOPICAL DAILY RF: 0 Biofreeze (menthol) 4 % Gel 1 applic TOPICAL BID PRN (Reason: Pain) RF: 0 Preparation H 0.25-14-74.9 % Ointment 1 applic RI AMHS PRN (Reason: .) RF: 0 Discharge Orders: Discharge Order (Routine); Ordered 01/23/19 Ordered By: Jose J Hameed/Other Patient Handouts: Prediabetes, Diabetes Meal Planning Admission Data Admit Date/Time: 01/20/19 13:38 Attending Provider: Davi Montero Admit Provider: Davi Montero Primary Care Provider: Kyler Choudhury Other Providers: Devin Mackey ; Samuel Harkins ; Nora Chamberlain ; Deisy Guillory ; Mikala Chery ; Mariam Houston ; Benita Alicea ; Salvador John ; Boaz Smith ; Brennon Cunningham ; Breonna Valdez ; Justine Ramos ; [place] ; Hitesh Martinez ; Evnas Vitale ; Ciera Rodriguez ; Oscar Pendleton ; Chen Ambrose ; Evans العراقي ; Lashay Newell ; Courtney Cardona ; Chiara Patino I. ; John Choi Other Interventions: Discharge Summary Assessment (RN) Last Done: 01/23/19 18:50 DC Date/Time DO NOT enter until pt leaves facility: 01/23/19 18:45
== END 2019-01-23 18:45 | DRG 618 ==
LOC: ASU 08:18 → 3W 13:38